=== PATIENT | male | born 1945 | race Caucasian/White ===

== ENCOUNTER 2017-12-07 07:04 | Inpatient (IN) | payer OTHER ==
--- OUTSIDE RECORDS SUMMARY | 2017-12-07 07:07 | XMS REPORT | Clinical Summary ---
:1945 Author Organization [facility] Address [address] [place] [address] Care Team Providers Name Role Phone Moy Lord DO Primary Care Provider Allergies Active Allergy Reactions Severity Noted Date Comments Penicillins 10/03/2016 Current Medications Prescription Sig. Disp. Refills Start Date End Date Status tamsulosin Take 0.4 mg by 1 09/06/2016 Active (FLOMAX) 0.4 mg mouth once capsule,extended daily. release 24hr warfarin Take 1 tablet (5 90 tablet 3 10/03/2016 Active (COUMADIN) 5 MG mg total) by tabletIndications: mouth daily. Paroxysmal atrial Take 1 tablet fibrillation, (5mg) by mouth Congestive heart daily for 30 failure, days. unspecified congestive heart failure chronicity, unspecified congestive heart failure type, Essential hypertension lisinopril-hydroch Take 1 tablet by 180 tablet 3 10/03/2016 Active lorothiazide mouth 2 (two) (PRINZIDE,ZESTORET times a day. IC) 20-12.5 mg per tabletIndications: Essential hypertension digOXIN (LANOXIN) Take 1 tablet 90 tablet 3 10/02/2017 Active 250 mcg (250 mcg total) tabletIndications: by mouth once Paroxysmal atrial daily. fibrillation, Congestive heart failure, unspecified congestive heart failure chronicity, unspecified congestive heart failure type, Essential hypertension furosemide (LASIX) Take 1 tablet 90 tablet 3 10/02/2017 Active 20 mg (20 mg total) by tabletIndications: mouth daily. Paroxysmal atrial fibrillation, Congestive heart failure, unspecified congestive heart failure chronicity, unspecified congestive heart failure type, Essential hypertension simvastatin Take 1 tablet 90 tablet 3 10/02/2017 Active (ZOCOR) 20 MG (20 mg total) by tabletIndications: mouth every Paroxysmal atrial evening. fibrillation, Congestive heart failure, unspecified congestive heart failure chronicity, unspecified congestive heart failure type, Essential hypertension sotalol (BETAPACE) Take 1 tablet 180 tablet 3 10/02/2017 Active 120 MG (120 mg total) tabletIndications: by mouth 2 (two) Paroxysmal atrial times a day. fibrillation, Congestive heart failure, unspecified congestive heart failure chronicity, unspecified congestive heart failure type, Essential hypertension digOXIN (LANOXIN) TAKE 1 TABLET BY 90 tablet 3 10/22/2017 Active 250 mcg MOUTH EVERY DAY tabletIndications: Paroxysmal atrial fibrillation, Congestive heart failure, unspecified congestive heart failure chronicity, unspecified congestive heart failure type, Essential hypertension SPIRIVA WITH INHALE CONTENTS 3 09/11/2016 Discontinued HANDIHALER 18 mcg OF 1 CAPSULE VIA 8 per inhalation HANDIHALER ONCE capsule A DAY furosemide (LASIX) Take 1 tablet 90 tablet 3 10/03/2016 Discontinued 20 mg (20 mg total) by 8 tabletIndications: mouth daily. Paroxysmal atrial fibrillation, Congestive heart failure, unspecified congestive heart failure chronicity, unspecified congestive heart failure type, Essential hypertension sotalol (BETAPACE) Take 1 tablet 180 tablet 3 10/03/2016 Discontinued 120 MG (120 mg total) 8 tabletIndications: by mouth 2 (two) Paroxysmal atrial times a day. fibrillation, Congestive heart failure, unspecified congestive heart failure chronicity, unspecified congestive heart failure type, Essential hypertension diltiazem XR Take 1 capsule 90 capsule 03 10/03/2016 (DILACOR XR) 180 (180 mg total) 8 MG 24 hr by mouth daily. capsuleIndications : Paroxysmal atrial fibrillation, Congestive heart failure, unspecified congestive heart failure chronicity, unspecified congestive heart failure type, Essential hypertension simvastatin Take 1 tablet 90 tablet 3 10/03/2016 Discontinued (ZOCOR) 20 MG (20 mg total) by 8 tabletIndications: mouth every Paroxysmal atrial evening. fibrillation, Congestive heart failure, unspecified congestive heart failure chronicity, unspecified congestive heart failure type, Essential hypertension digOXIN (LANOXIN) Take 1 tablet 90 tablet 3 10/03/2016 Discontinued 250 mcg (250 mcg total) 8 tabletIndications: by mouth once Paroxysmal atrial daily. fibrillation, Congestive heart failure, unspecified congestive heart failure chronicity, unspecified congestive heart failure type, Essential hypertension warfarin Take 1 tablet (5 200 tablet 3 12/07/2016 Discontinued (COUMADIN) 5 MG mg total) by 8 tablet mouth daily. warfarin Take one tablet 200 tablet 3 05/01/2017 Discontinued (COUMADIN) 5 MG daily or as 8 tablet directed by MD office Active Problems Problem Noted Date Hx of CABG 10/03/2016 Paroxysmal atrial fibrillation 10/03/2016 Essential hypertension 10/03/2016 Congestive heart failure 10/03/2016 PAD (peripheral artery disease) 10/03/2016 Atrial fibrillation 10/03/2016 SOB (shortness of breath) 10/03/2016 Encounters Date Type Specialty Care Team Description 12/06/2017 Telephone Cardiology Lam, Franchesc[place], Anticoagulation DRY TRANSFER MAN 11/16/2017 Orders Only Cardiology Lam, [place], Atrial fibrillation, DRY TRANSFER MAN unspecified type 11/07/2017 Telephone Cardiology Lam, [place], Anticoagulation DRY TRANSFER MAN 11/02/2017 Orders Only Cardiology Lam, [place], Atrial fibrillation, DRY TRANSFER MAN unspecified type 10/22/2017 Refill Cardiology Bogdan De Dios MD Med Refill 10/19/2017 Orders Only Cardiology Lam, [place], Atrial fibrillation, DRY TRANSFER MAN unspecified type 10/11/2017 Telephone Cardiology Lam, [place], Anticoagulation DRY TRANSFER MAN 10/05/2017 Orders Only Cardiology Lam, [place], Atrial fibrillation, DRY TRANSFER MAN unspecified type 10/02/2017 Office Visit Cardiology Bogdan De Dios MD Congestive heart failure, unspecified congestive heart failure chronicity, unspecified congestive heart failure type (Primary Dx); Paroxysmal atrial fibrillation; Essential hypertension 09/21/2017 Orders Only Cardiology Lam, [place], Atrial fibrillation, DRY TRANSFER MAN unspecified type 09/07/2017 Telephone Cardiology Lam, Franc[place], Anticoagulation DRY TRANSFER MAN 09/07/2017 Orders Only Cardiology Lam, [place], Atrial fibrillation, DRY TRANSFER MAN unspecified type 08/24/2017 Orders Only Cardiology Lam, Franc[place], Atrial fibrillation, DRY TRANSFER MAN unspecified type 08/10/2017 Orders Only Cardiology Lam, [place], Atrial fibrillation, DRY TRANSFER MAN unspecified type 08/07/2017 Telephone Cardiology Lam, Franc[place], Anticoagulation DRY TRANSFER MAN 07/09/2017 Telephone Cardiology Erin Russell MA ANTICOAGULATION 06/01/2017 Orders Only Cardiology Lam, [place], Atrial fibrillation, DRY TRANSFER MAN unspecified type (Primary Dx) 06/01/2017 Telephone Cardiology Lam, Franche[place], Anticoagulation DRY TRANSFER MAN 05/31/2017 Orders Only Cardiology Bogdan De Dios MD 05/01/2017 Orders Only Cardiology Lam, [place], DRY TRANSFER MAN 04/18/2017 Telephone Cardiology Lam, Franc[place], Anticoagulation DRY TRANSFER MAN 04/17/2017 Orders Only Cardiology Bogdan De Dios MD 03/19/2017 Telephone Cardiology Lam, Franc[place], Anticoagulation DRY TRANSFER MAN 03/16/2017 Orders Only Cardiology Bogdan De Dios MD 02/14/2017 Telephone Cardiology Lam, [place], Anticoagulation DRY TRANSFER MAN 02/13/2017 Orders Only Cardiology Bogdan De Dios MD 01/15/2017 Telephone Cardiology Lam, Franche[place], Anticoagulation DRY TRANSFER MAN 01/12/2017 Orders Only Cardiology Bogdan De Dios MD 12/07/2016 Orders Only Cardiology Lam, Franc[place], Atrial fibrillation, DRY TRANSFER MAN unspecified type (Primary Dx) 12/07/2016 Orders Only Cardiology Lam, Franchesca, DRY TRANSFER MAN 12/07/2016 Telephone Cardiology Lam, Franchesca, Anticoagulation DRY TRANSFER MAN 12/06/2016 Orders Only Cardiology Bogdan De Dios MD after 12/06/2016 Social History Tobacco Use Types Packs/Day Years Used Date Former Smoker Smokeless Tobacco: Former User Alcohol Use Drinks/Week oz/Week Comments Yes Sex Assigned at Date Recorded Not on file Last Filed Vital Signs Vital Sign Reading Time Taken Blood Pressure 167/74 10/02/2017 2:51 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 Pulse - - Temperature - - Respiratory Rate - - Oxygen Saturation - - Inhaled Oxygen Concentration - - Weight 75.1 kg (165 lb 9.6 oz) 10/02/2017 2:51 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 Height 180.3 cm (5' 11") 10/02/2017 2:51 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 Component Value Ref Range INR 2.6 (H) Comment: Reference Range 0.9-1.1 Moderate-intensity Warfarin Therapy 2.0-3.0 Higher-intensity Warfarin Therapy 3.0-4.0 Prothrombin time 26.2 (H) 9.0 - 11.5 sec Comment: For more information on this test, go to: http://education.Atmail/faq/WJN920 Specimen Performing Laboratory Blood [facility] Narrative FASTING:YES FASTING: YES ECG 12 lead (10/02/2017 2:59 PM) Component Value Ref Range Ventricular rate 56 Atrial rate 40 QRSD interval 110 QT interval 470 QTC interval 453 QRS axis 1 102 T wave axis -69 EKG impression Atrial fibrillation with slow ventricular response-Rightward axis-Marked ST abnormality, possible inferior subendocardial injury-Abnormal ECG -In automated comparison with ECG of 03-OCT-2016 10:12,-No si gnificant change was found- Specimen Performing Laboratory [facility] [address] [place] [address] after 12/06/2016 Insurance Payer Benefit Plan / Group Subscriber ID Type Phone Address [facility] [employer]NETWORK xxxxxxxxxxx HMO [phone] [facility] [address] [place] [address]
[2017-12-07 07:37] LABS: Absolute Lymphocytes (CBC) 1.6 K/uL (0.7-4.9); Absolute Monocytes 0.7 K/uL (0.1-1.3); Basophils % 0.8 % (0-1.3); Eosinophils % 12.2 % (0-4.4); Hematocrit 41.9 % (39.6-49.0); Lymphocytes % 13.2 % (15.3-44.8); MCV 86.4 fL (80-100); MPV 8.3 fL (7.6-11.3); Monocytes % 5.8 % (3.3-12.3); RBC Red Blood Cell Count 4.85 M/uL (4.33-5.43)
--- NOTE | 2017-12-07 07:39 | EKG ---
Test Date: 2017-12-07 Test Time: 07:30:13 Combine Operator: LAURA MEASUREMENT RESULTS: Intervals: Rate: 58 IA: QRSD: 106 QT: 462 QTc: 453 [place]: P: IA: QRS: 64 T: -1 INTERPRETIVE STATEMENTS: Atrial fibrillation with slow ventricular response Nonspecific ST abnormality Abnormal QRS-T angle, consider primary T wave abnormality Abnormal ECG Compared to ECG 09/24/2017 07:53:26 T-wave abnormality now present Possible ischemia no longer present ST (T wave) deviation still present Electronically Signed On 12-07-17 07:38:16 CDT by Miguel Disla
[2017-12-07 07:50] LABS: Protime INR 3.05
--- NOTE | 2017-12-07 07:59 | RAD REPORT ---
EXAM DESCRIPTION: CT - Head Brain Wo Cont - 12/07/2017 7:49 am CLINICAL HISTORY: Left arm numbness COMPARISON: June 2017 TECHNIQUE: Computed axial tomography of the head was obtained. IV contrast was not requested. All CT scans are performed using dose optimization technique as appropriate and may include automated exposure control or mA/KV adjustment according to patient size. FINDINGS: An intracranial bleed is not seen . The ventricles are normal in caliber. No extra-axial fluid collection is noted. Moderate low-density areas within periventricular, deep and subcortical white matter likely represent ischemic changes secondary to small vessel disease. Fluid within the sinuses/ mastoids is not seen. A mucus retention cyst is present the left maxillary sinus IMPRESSION: No acute intracranial abnormality is seen. If patient's symptoms persist MRI of the bra in would be recommended.
--- NOTE | 2017-12-07 08:00 | RAD REPORT ---
EXAM DESCRIPTION: [place] Single View12/07/2017 7:50 am CLINICAL HISTORY: Colon cancer COMPARISON: August 2017 FINDINGS: The lungs appear clear of acute infiltrate. The heart is mildly enlarged. Post surgical c hanges involve the chest IMPRESSION: No acute abnormalities displayed
--- NOTE | 2017-12-07 08:33 | ER ---
Nurse's Notes [facility] Name: Dequan Ramirez Age: 72 yrs Sex: Male : 1945 Arrival Date: 12/07/2017 Time: 07:06 Bed 6 Private MD: Diagnosis: Unstable angina Presentation: 12/07 07:08 Presenting complaint: Patient states: "yesterday about noon i noticed my lip went numb, tw2 it still is, then my left side of my face would heat up, now my left arm is going numb". Transition of care: patient was not received from another setting of care. Onset of symptoms was December 06, 2017. Care prior to arrival: None. 07:08 Method Of Arrival: Ambulatory tw2 07:08 Acuity: [place] 3 tw2 Triage Assessment: 07:08 General: Appears in no apparent distress. Behavior is calm, cooperative, appropriate tw2 for age. Pain: Denies pain. Neuro: Oriented to person, place, time, situation, Gait is steady, Speech is normal, Facial symmetry appears normal. Historical: - Allergies: 07:10 PENICILLINS; tw2 - Home Meds: 07:10 Coumadin 5 mg Oral tab 1 tab once daily [Active]; digoxin 250 mcg Oral tab 1 tab once tw2 daily [Active]; lisinopril 20 mg Oral tab 1 tab once daily [Active]; simvastatin 20 mg Oral tab 1 tab once daily [Active]; sotalol 80 mg Oral tab 1 tab 2 times per day [Active]; - PMHx: 07:10 Atrial Fib; Dementia; COLON CA; DVT; High Cholesterol; Hypertension; tw2 07:17 COPD; tw2 - Immunization history:: Adult Immunizations up to date. - Social history:: Smoking status: Patient/guardian denies using tobacco, the patient reports quitting approximately 8 years ago. Screenin:22 Patient has been NPO before screening. The patient is alert, able to follow commands. sv The patient does not exhibit slurred or garbled speech The patient is not exhibiting difficulty speaking. The patient does not exhibit difficulty understanding words. The patient is able to swallow own secretions with no drooling or need for suction. Patient tolerated one teaspoon of water. No drooling, immediate coughing, gurgling, or clearing of the throat was noted. The patient tolerated 90mL of water. No drooling, immediate coughing, gurgling, or clearing of the throat was noted. The patient passed the bedside swallow screening. Oral medications may be given as ordered. Contact Physician for further diet orders. Provider notified of bedside swallow screening results: Ophelia Cortez MD. 07:23 Abuse screen: Denies threats or abuse. Denies injuries from another. Nutritional sv screening: No deficits noted. Tuberculosis screening: No symptoms or risk factors identified. Fall Risk None identified. Assessment: 07:23 General: Appears in no apparent distress. uncomfortable, Behavior is calm, cooperative, jl7 appropriate for age. Pain: Denies pain. Neuro: Level of Consciousness is awake, alert, obeys commands, Oriented to person, place, time, situation, Lance Crewmember/Mlrs Sergeant are equal bilaterally Moves all extremities. Gait is steady, Speech is normal, Facial symmetry appears normal, Pupils are PERRLA, Tingling in left arm Numbness in left side of face. Cardiovascular: Denies chest pain, nausea, shortness of breath, Heart tones S1 S2 present Patient's skin is warm and dry. Respiratory: Airway is patent Respiratory effort is even, unlabored, Respiratory pattern is regular, symmetrical, Breath sounds are clear bilaterally. GI: No signs and/or symptoms were reported involving the gastrointestinal system. Patient currently denies diarrhea, nausea, vomiting. : No signs and/or symptoms were reported regarding the genitourinary system. EENT: No signs and/or symptoms were reported regarding the EENT system. Derm: Skin is pink, warm \\T\\ dry. Musculoskeletal: No signs and/or symptoms reported regarding the musculoskeletal system. 07:23 Neuro: Level of Consciousness is awake, alert, obeys commands, Oriented to person, jtb place, time, situation, Lance Crewmember/Mlrs Sergeant are equal bilaterally Moves all extremities. Gait is Speech is normal, Facial symmetry appears normal, Tingling in left hand Numbness in left jaw Reports blurred vision since yesterday Denies dizziness, headache. 08:19 Reassessment: Patient and/or family updated on plan of care and expected duration. Pain jtb level reassessed. Patient is alert, oriented x 3, equal unlabored respirations, skin warm/dry/pink. Family is at the bedside. Pt is resting in bed. 09:35 Reassessment: Patient and/or family updated on plan of care and expected duration. Pain jtb level reassessed. Patient is alert, oriented x 3, equal unlabored respirations, skin warm/dry/pink. Dr. Disla is at the bed side updating pt on plan of care. Patient denies pain at this time. 10:31 Reassessment: Pt to stress test via wheelchair. sv 10:34 Reassessment: Nurse to call back for report. sv Vital Signs: 07:08 BP 173 / 100; Pulse 78; Resp 17; Temp 98.2(TE); Pulse Ox 95% on R/A; Weight 74.39 kg tw2 (R); Height 5 ft. 11 in. (180.34 cm); Pain 0/10; 07:32 BP 186 / 83; Pulse 86; Resp 16; Pulse Ox 99% ; Pain 0/10; jl7 08:19 BP 173 / 77; Pulse 62; Resp 16; Pulse Ox 98% on R/A; Pain 0/10; jtb 09:25 BP 186 / 66; Pulse 60; Resp 18; Pulse Ox 98% on R/A; jb1 09:45 BP 165 / 81; Pulse 63; Resp 19; Pulse Ox 99% ; sv 07:08 Body Mass Index 22.87 (74.39 kg, 180.34 cm) tw2 ED Course: 07:06 Patient arrived in ED. rg4 07:08 Arm band placed on. tw2 07:09 Triage completed. tw2 07:12 Judith Davila, RN is Primary Nurse. jl7 07:20 Initial lab(s) drawn, by nm, sent to lab. Inserted saline lock: 20 gauge in right jtb wrist, using aseptic technique. Blood collected. 07:23 Patient has correct armband on for positive identification. Placed in gown. Bed in low sv position. Call light in reach. Adult w/ patient. proposal manager on. Pulse ox on. NIBP on. Door closed. Head of bed elevated. 07:27 EKG done, by bone density technician. reviewed by Ophelia Cortez MD. tc 07:33 Ophelia Cortez MD is Attending Physician. ma2 07:48 CT completed. Patient tolerated procedure well. Patient moved to CT via stretcher. sj Patient moved back from CT. 08:32 Paige Morrison MD is Hospitalizing Provider. ma2 09:54 Report given to ABELINO Rollins. 7 10:17 Primary Nurse role handed off by Judith Davila, ABELINO aj1 10:17 oZ Mackenzie, RN is Primary Nurse. [facility] 10:56 No provider procedures requiring assistance completed. Patient admitted, IV remains in sv place. intact. Administered Medications: 09:41 Drug: Aspirin Chewable Tablet 324 mg Route: PO; jl7 10:00 Follow up: Response: No adverse reaction [facility] Point of Care Testing: Blood Glucose: 07:32 Blood Glucose: 158 mg/dL; jl7 Ranges: Outcome: 08:32 Decision to Hospitalize by Provider. ma2 09:55 Attestation : I agree with everything documented by Desmond Maravilla, Student Nurse. [facility] 10:54 Admitted to [facility] via wheelchair, room 231, with chart, Other Cardiology department to take pt up to his room after the stress test is complete. Report called to Christofer ROCA 10:54 Condition: improved 10:54 Instructed on the need for admit. 10:56 Patient left the ED. Signatures: Dexter Phelan Angela, RN RN aj1 Melissa Minaya RN Zunilda Harry Tiffany, pastoral assistant EKG Ttc Kinza Leach RN ABELINO 2 Georgia Tyler rg4 Judith Davila, RN RN leo7 Ophelia Cortez MD MD ma2 Bryson, James [facility] Corrections: (The following items were deleted from the chart) 07:44 07:23 Neuro: Level of Consciousness is awake, alert, obeys commands, Oriented to jtb person, place, time, situation, Lance Crewmember/Mlrs Sergeant are equal bilaterally Moves all extremities. Gait is Speech is normal, Facial symmetry appears normal, Tingling in left hand Numbness in left jaw jtb 09:47 09:35 BP 186 / 66; Pulse 83bpm; Resp 16bpm; Pulse Ox 98% RA; Pain 0/10; jtb jtb
--- NOTE | 2017-12-07 08:33 | EDPHYS ---
Physician Documentation [facility] Name: Dequan Ramirez Age: 72 yrs Sex: Male : 1945 Arrival Date: 12/07/2017 Time: 07:06 Bed 6 Private MD: ED Physician Ophelia Cortez HPI: 12/07 08:27 This 72 yrs old Male presents to ER via Ambulatory with complaints of ma2 Numbness. 08:27 Onset: The symptoms/episode began/occurred gradually, 1 day(s) ago. Duration: This was ma2 a single incident. Associated signs and symptoms: Pertinent positives: Pertinent negatives: abdominal pain, agitation, ataxia, chest pain, confusion, diaphoresis, diarrhea, headache, nausea, palpitations, shortness of breath, vertigo, vomiting, weakness. Severity of symptoms: At their worst the symptoms were moderate. The patient has experienced a previous episode. Has left shoulder pain tingling and left neck . Historical: - Allergies: 07:10 PENICILLINS; tw2 - Home Meds: 07:10 Coumadin 5 mg Oral tab 1 tab once daily [Active]; digoxin 250 mcg Oral tab 1 tab once tw2 daily [Active]; lisinopril 20 mg Oral tab 1 tab once daily [Active]; simvastatin 20 mg Oral tab 1 tab once daily [Active]; sotalol 80 mg Oral tab 1 tab 2 times per day [Active]; - PMHx: 07:10 Atrial Fib; Dementia; COLON CA; DVT; High Cholesterol; Hypertension; tw2 07:17 COPD; tw2 - Immunization history:: Adult Immunizations up to date. - Social history:: Smoking status: Patient/guardian denies using tobacco, the patient reports quitting approximately 8 years ago. ROS: 08:27 Constitutional: Negative for fever, chills, and weight loss, Eyes: Negative for injury, ma2 pain, redness, and discharge, ENT: Negative for injury, pain, and discharge, Neck: Negative for injury, pain, and swelling, Respiratory: Negative for shortness of breath, cough, wheezing, and pleuritic chest pain, Abdomen/GI: Negative for abdominal pain, nausea, diarrhea, and constipation, Back: Negative for injury and pain, : Negative for injury, bleeding, discharge, and swelling, MS/Extremity: Negative for injury and deformity, Skin: Negative for injury, rash, and discoloration, Allergy/Immunology: Negative for hives, rash, and allergies, Endocrine: Negative for neck swelling, polydipsia, polyuria, polyphagia, and marked weight changes. 08:27 Cardiovascular: Positive for Negative for chest pain, edema, orthopnea, palpitations, paroxysmal nocturnal dyspnea, acute changes. 08:27 Neuro: Positive for numbness, left arm and face numbness x 12 hrs , Negative for altered mental status, headache, hearing loss, loss of consciousness, seizure activity, speech changes, syncope, near syncope, tingling, tinnitus, tremor, visual changes, weakness. Exam: 08:27 Constitutional: This is a well developed, well nourished patient who is awake, alert, ma2 and in no acute distress. Head/Face: Normocephalic, atraumatic. Eyes: Pupils equal round and reactive to light, extra-ocular motions intact. Lids and lashes normal. Conjunctiva and sclera are non-icteric and not injected. Cornea within normal limits. Periorbital areas with no swelling, redness, or edema. ENT: Nares patent. No nasal discharge, no septal abnormalities noted. Tympanic membranes are normal and external auditory canals are clear. Oropharynx with no redness, swelling, or masses, exudates, or evidence of obstruction, uvula midline. Mucous membranes moist. Neck: Trachea midline, no thyromegaly or masses palpated, and no cervical lymphadenopathy. Supple, full range of motion without nuchal rigidity, or vertebral point tenderness. No Meningismus. Chest/axilla: Normal chest wall appearance and motion. Nontender with no deformity. No lesions are appreciated. Cardiovascular: Regular rate and rhythm with a normal S1 and S2. No gallops, murmurs, or rubs. Normal PMI, no JVD. No pulse deficits. Respiratory: Lungs have equal breath sounds bilaterally, clear to auscultation and percussion. No rales, rhonchi or wheezes noted. No increased work of breathing, no retractions or nasal flaring. Abdomen/GI: Soft, non-tender, with normal bowel sounds. No distension or tympany. No guarding or rebound. No evidence of tenderness throughout. MS/ Extremity: Pulses equal, no cyanosis. Neurovascular intact. Full, normal range of motion. Neuro: Awake and alert, GCS 15, oriented to person, place, time, and situation. Cranial nerves II-XII grossly intact. Motor strength 5/5 in all extremities. Sensory grossly intact. Cerebellar exam normal. Normal gait. Vital Signs: 07:08 BP 173 / 100; Pulse 78; Resp 17; Temp 98.2(TE); Pulse Ox 95% on R/A; Weight 74.39 kg tw2 (R); Height 5 ft. 11 in. (180.34 cm); Pain 0/10; 07:32 BP 186 / 83; Pulse 86; Resp 16; Pulse Ox 99% ; Pain 0/10; jl7 08:19 BP 173 / 77; Pulse 62; Resp 16; Pulse Ox 98% on R/A; Pain 0/10; jtb 09:25 BP 186 / 66; Pulse 60; Resp 18; Pulse Ox 98% on R/A; jb1 09:45 BP 165 / 81; Pulse 63; Resp 19; Pulse Ox 99% ; sv 07:08 Body Mass Index 22.87 (74.39 kg, 180.34 cm) tw2 MDM: 07:34 Patient medically screened. ma2 08:27 Differential diagnosis: ACS, vs NSTMI. Data reviewed: vital signs, nurses notes, EMS ma2 record, lab test result(s), EKG. 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 garcia . Test interpretation: by ED physician or midlevel provider: ECG, plain radiologic studies. Counseling: I had a detailed discussion with the patient and/or guardian regarding: the historical points, exam findings, and any diagnostic results supporting the discharge/admit diagnosis, the presence of at least one elevated blood pressure reading (>120/80) during this emergency department visit, the need for further work-up and treatment in the hospital. Admission orders: after a detailed discussion of the patient's condition and case, the admit orders are written by me. 12/07 07:20 Order name: Basic Metabolic Panel sv 12/07 07:20 Order name: BNP sv 12/07 07:20 Order name: CBC with Diff sv 12/07 07:20 Order name: Ckmb sv 12/07 07:20 Order name: CPK sv 12/07 07:20 Order name: LFT's sv 12/07 07:20 Order name: Magnesium sv 12/07 07:20 Order name: PT-INR sv 12/07 07:20 Order name: Ptt, Activated sv 12/07 07:20 Order name: Troponin (emerg Dept Use Only) sv 12/07 07:41 Order name: CBC with Automated Diff; Complete Time: 08:15 EDMS 12/07 07:51 Order name: Protime (+INR); Complete Time: 08:15 EDMS 12/07 07:51 Order name: PTT, Activated Partial Thromb; Complete Time: 08:15 EDMS 12/07 07:53 Order name: Troponin (Emerg Dept Use Only); Complete Time: 08:15 EDMS 12/07 07:20 Order name: XRAY Chest (1 view) sv 12/07 07:20 Order name: EKG; Complete Time: 07:21 sv 12/07 07:20 Order name: Cardiac monitoring; Complete Time: 07:22 sv 12/07 07:20 Order name: EKG - Nurse/Tech; Complete Time: 07:30 sv 12/07 07:20 Order name: CT Head Brain wo Cont sv 12/07 07:59 Order name: CT; Complete Time: 08:15 EDMS 12/07 08:00 Order name: RAD; Complete Time: 08:15 EDMS 12/07 08:06 Order name: BNP B-Type Natriuretic Peptide; Complete Time: 08:15 EDMS 12/07 09:01 Order name: Basic Metabolic Panel; Complete Time: 09:37 EDMS 12/07 09:07 Order name: Liver (Hepatic) Function; Complete Time: 09:37 EDMS 12/07 09:07 Order name: Creatine Phosphokinase; Complete Time: 09:37 EDMS 12/07 09:07 Order name: Magnesium; Complete Time: 09:37 EDMS 12/07 09:10 Order name: CKMB Creatine Kinase MB; Complete Time: 09:37 EDMS 12/07 10:09 Order name: Urine Dipstick--Ancillary (enter results) bd 12/07 10:56 Order name: Urine Dipstick-Ancillary EDMS 12/07 07:20 Order name: IV Saline Lock; Complete Time: 07:30 sv 12/07 07:20 Order name: Labs collected and sent; Complete Time: 07:30 sv 12/07 07:20 Order name: O2 Per Protocol; Complete Time: 07:22 sv 12/07 07:20 Order name: O2 Sat Monitoring; Complete Time: 07:22 sv 12/07 07:22 Order name: Accucheck; Complete Time: 07:31 sv Administered Medications: 09:41 Drug: Aspirin Chewable Tablet 324 mg Route: PO; jl7 10:00 Follow up: Response: No adverse reaction jl7 Point of Care Testing: Blood Glucose: 07:32 Blood Glucose: 158 mg/dL; jl7 Ranges: Critical Glucose Levels:Adult <50 mg/dl or >400 mg/dl <40 mg/dl or >180 mg/dl Disposition: 12/07/17 08:32 Hospitalization ordered by Paige Garcia for Observation. Preliminary diagnosis is Unstable angina. - Bed requested for Telemetry/MedSurg (observation). - Status is Observation. sv - Condition is Stable. - Problem is new. - Symptoms are unchanged. UTI on Admission? No Signatures: Dispatcher [employer] EDDahlia Beltran Stephanie, RN RN Hua Ferrer PA PA [id number] Kinza Leach RN RN tw2 Judith Davila RN RN jl7 Ophelia Cortez MD MD ma2
[2017-12-07 09:07] LABS: Albumin 4.6 g/dL (3.2-5.5); Bilirubin Direct 0.4 mg/dL (0-0.2); Bilirubin Total 2.1 mg/dL (0.3-1.2); Magnesium 1.8 mg/dL (1.8-2.5); Protein, Total 7.4 g/dL (6.0-8.3)
[2017-12-07 09:10] LABS: CKMB Creatine Kinase MB 1.9 ng/ml (0.3-4.0)
[2017-12-07] MEDS ORDERED: ASPIRIN 81 MG CHEWABLE TABLET ONE (09:58)
[2017-12-07] MEDS ORDERED: REGADENOSON 0.4 MG/5 ML SYR IV ONE (10:34)
[2017-12-07 10:55] LABS: Urine Blood NEGATIVE (NEG); Urine Glucose NEGATIVE (NEG); Urine Protein NEGATIVE (NEG)
[2017-12-07] MEDS ORDERED: ACETAMINOPHEN 500 MG TAB PO PRN (11:10)
[2017-12-07] MEDS ORDERED: ONDANSETRON 4 MG (ODT) TAB PO PRN (11:10)
--- NOTE | 2017-12-07 12:04 | CON ---
Chief Complaint: Tingling in the left side of his face, numb in the thumb and first 2 fingers on his left hand. History Of Present Illness: The patient was fine until these symptoms started yesterday, it has been fairly constant, still present although mild. He has a history of coronary heart disease with a byp ass surgery, a 1 vessel bypass, left internal mammary to LAD, no vein grafts were needed, that was in the early 1999s. The most recent cardiac cath that I have available is from 2013 that showed that sandra ARAGON was widely patent and useful. There is a 70% proximal LAD lesion, still with normal flow thr ough it and no significant lesions in the right coronary or circumflex. He has been on medical thera py for some time for this. He has not been in my office since 2014. We do not have the list of his present medications. There has been no stroke, no vascular surgery other than the bypass surgery. Colin gaines quit smoking right at the time of his bypass surgery and apparently sees another director of clinical education and h as good control of blood pressure, blood sugar and lipids. Alcohol use, minimal. No illegal drugs. Physical Examination: General: He is alert, oriented, pleasant, not in distress. Neck: There is no carotid bruit. Lungs: Clear. Heart: Irregular, but no significant murmur or gallop. Diagnostic Data: The EKG shows atrial fib, heart rate is 58, there is a nonspecific T-wave abnormali ty. Otherwise, it is normal. No infarction, injury or ischemia. His EKG is similar to older EKGs, which we have on Mr. Ramirez. It was compared to an EKG from September of this year when similar finding s were noted. Since being in the hospital, a troponin is normal. He has not had chest pain or tight ness or squeezing. His INR is 3.05. His troponins are 0.04. Potassium 3.0. Normal white blood anila l count. Normal complete blood count. Impression: Mr. Ramirez is probably having nerve impingement syndrome, I would be worried about cervic al spine disease causing all of the symptoms on the left side of his face, top of his head and left a rm. Because the troponin is 0.04, I think we will do an echo and a pharmacologic stress test to make sure those are okay. If we do not find anything sitting a fit with his heart, I would recommend a n eurological workup to include cervical spine evaluations. BRISA/SKYLER Voice ID: [id number] Report ID: [id number]
[2017-12-07 12:19] VITALS: BMI 22.8
--- NOTE | 2017-12-07 12:50 | RAD REPORT ---
EXAM DESCRIPTION: NM - Rest Stress Cardiac Imaging - 12/07/2017 12:43 pm CLINICAL HISTORY: Chest pain. COMPARISON: None. TECHNIQUE: The patient was administered approximately 10mCi of Tc 99m Sestamibi prior to resting SPE CT imaging of the heart. The patient was then administered approximately 30 mCi of Tc 99m Sestamibi f ollowing exercise or pharmacologic stress. Multiplanar SPECT images were reviewed. FINDINGS: No stress induced ischemic defect is seen to suggest stress induced ischemia. Mild decreas ed radiopharmaceutical accumulation in the LV apex inferiorly noted. Left ventricular cavity appears enlarged on rest and stress. The end diastolic volume is 167 ml, the end systolic volume is 106 ml, and the ejection fraction is 3 7 %. IMPRESSION: Mild stress-induced ischemia suspected involving the left ventricular apex inferiorly.
--- NOTE | 2017-12-07 13:17 | ECHO ---
HEIGHT: 5 ft 11 in WEIGHT: 164 lb 0 oz DATE OF STUDY: 12/07/[address]: Miguel Disla MD 2-DIMENSIONAL: YES M.MODE: YES DOPPLER: YES COLOR FLOW: YES TDS: NO PORTABLE: NO DEFINITY: NO BUBBLE STUDY: NO DIAGNOSIS: POSSIBLE ANGINA CARDIAC HISTORY: CATHERIZATION: YES SURGERY: YES PROSTHETIC VALVE: NO PACEMAKER: NO MEASUREMENTS (cm) DIASTOLIC (NORMALS) SYSTOLIC (NORMALS) IVSd 1.1 (0.6-1.2) LA Diam 5.0 (1.9-4.0) LVEF 39% LVIDd 5.6 (3.5-5.7) LVIDs 4.5 (2.0-3.5) %FS 19% LVPWd 1.0 (0.6-1.2) Ao Diam 3.2 (2.0-3.7) 2 DIMENSIONAL ASSESSMENT: RIGHT ATRIUM: DILATED LEFT ATRIUM: DILATED RIGHT VENTRICLE: NORMAL LEFT VENTRICLE: NORMAL TRICUSPID VALVE: NORMAL MITRAL VALVE: NORMAL PULMONIC VALVE: NORMAL AORTIC VALVE: NORMAL PERICARDIAL EFFUSION: NONE AORTIC ROOT: NORMAL LEFT VENTRICULAR WALL MOTION: GLOBAL HYPOKINESIS. DOPPLER/COLOR FLOW: MODERATE TRICUSPID REGURGITATION. MILD MITRAL REGURGITATION. SEVERE PULMONARY HYPERTENSION. ESTIMATED RIGHT VENTRICULAR SYSTOLIC PRESSURE 75 mmHg. COMMENTS: DEPRESSED LEFT VENTRICULAR EJECTION FRACTION. DILATED LEFT AND RIGHT ATRIUM. MODERATE TRICUSPID REGURGITATION. MILD MITRAL REGURGITATION. SEVERE PULMONARY HYPERTENSION. TECHNOLOGIST: Trip ARNETT
--- NOTE | 2017-12-07 13:29 | TREADPHA ---
DX: POSSIBLE ANGINA Date of Study: 12/07/2017 Ht: 5' 11 " Wt: 164 lb 0 oz Consulting Physician: RIVERA MEDICATIONS: ASPIRIN HISTORY: 72 YEAR OLD MALE WITH COMPLAINTS OF LEFT ARM AND LEFT FACE NUMBNESS. HISTORY OF CORONARY ARTERY DISEASE, FORMER SMOKER, CORONARY ARTERY BYPASS SURGERY, HYPERTENSION AND HIGH CHOLESTEROL. PHYSICIAL EXAMINATION: RESTING B.P.: 186/88 RESTING H.R.: 62 RESTING EKG: ATRIAL FIBRILLATION. INTRA VENTRICULAR CONDUCTION DELAY. PREMATURE VENTRICULAR COMPLEXES. PROTOCOL: LEXISCAN EXERCISE TIME: 3:30 B.P. AT PEAK STRESS: 191/77 IMPRESSION: LEXISCAN INJECTED. CARDIOLITE INJECTED PER PROTOCOL. SEE NUCLEAR MEDICINE REPORT. NO CHEST PAIN. NON DIAGNOSTIC EKG WITH LEXISCAN STRESS.
--- NOTE | 2017-12-07 14:56 | P.HP ---
Certification for Inpatient Patient admitted to: Observation With expected LOS: <2 Midnights Patient will require the following post-hospital care: None Practitioner: I am a practitioner with admitting privileges, knowledge of patient current condition, hospital course, and medical plan of care. Services: Services provided to patient in accordance with Admission requirements found in Title 42 Section 412.3 of the Code of Federal Regulations Patient History Date of Service: 12/07/17 Primary Care Provider: Dr Lord Reason for admission: Chest Pain History of Present Illness: This is a 72-year-old female with significant past medical history of atrial fibrillation, COPD, CAD, Colon CA removed, dementia and DVT who presented to the ED complaining of having some left-sided chest pain. Patient stated that more than the chest pain patient was starting to have numbness and tingling on the left side that was going down to his upper extremity and on his facial area when he moved his neck. Patient stated that the chest pain was more concerning for him and thus he decided to come to the ER today to get a workup. Patient states that he has a history of CAD in the past and had a bypass done in 2007. He quit smoking right at the time of his bypass surgery, minimal alcohol and no illegal drugs. Patient denies having an any other associated symptoms and states that aside from chest pain and numbness and tingling he does not have any shortness of breath nausea vomiting or any other symptoms. Allergies Penicillins Allergy (Mild, Verified 12/07/15 20:20) Rash Home Medications: Digoxin [Lanoxin] 250 mcg PO DAILY 11/10/13 Simvastatin 20 mg PO BEDTIME 11/10/13 Sotalol HCl [Sotalol] 80 mg PO BID 11/10/13 Furosemide [Lasix*] 20 mg PO M,W,F #20 tab 12/11/15 Warfarin Sodium [Coumadin*] 5 mg PO DAILY 5 PM #30 tab 12/11/15 Tamsulosin [Flomax*] 0.4 mg PO BEDTIME 09/23/17 Lisinopril [Prinivil*] 20 mg PO DAILY #30 tab 09/24/17 - Past Medical/Surgical History Has patient received pneumonia vaccine in the past: No Diabetic: No -: HTN -: Atrial fibrillation -: DVT-lt leg -: Hyperlipidemia -: Colon tumor -: Pulmonary HTN -: dementia -: wendi -: colon ca with tumor removal -: heart bypass-2007 -: Shoulder sx -: Rt leg stent-superficial femoral artery -: shoulder sx -: cancer removal under the eye -: abscess left leg - Family History Mother -: Heart disease, Hypertension, Diabetes, Cancer Father -: Lung disease, Cancer Sister -: Heart disease, Hypertension Brother -: Heart disease, Hypertension - Social History Smoking Status: Former smoker Alcohol use: No CD- Drugs: No Caffeine use: No Place of Residence: Home Review of Systems General: As per HPI Physical Examination - Vital Signs Temperature: 98.2 F Blood Pressure: 165/81 Pulse: 63 Respirations: 19 - Physical Exam General: Alert, In no apparent distress, Oriented x3, Demented HEENT: Atraumatic, PERRLA, EOMI Neck: Supple Respiratory: Clear to auscultation bilaterally, Normal air movement Cardiovascular: Regular rate/rhythm, Normal S1 S2 Gastrointestinal: Normal bowel sounds, No tenderness Musculoskeletal: No tenderness Integumentary: No rashes Neurological: Normal speech, Normal tone, Normal affect, Abnormal sensation ( Numbness and tingling on right side UE on flexion of the neck. ) Lymphatics: No axilla or inguinal lymphadenopathy - Studies Laboratory Data (last 24 hrs) 12/07/17 07:20: PT 36.4 H, INR 3.05, APTT 44.0 H 12/07/17 07:20: WBC 11.8 H, Hgb 14.0, Hct 41.9, Plt Count 235 12/07/17 07:20: B-Natriuretic Peptide 402 H 12/07/17 07:20: Sodium 135, Potassium 3.0 L, BUN 7, Creatinine 0.89, Glucose 158 H, Magnesium 1.8, Total Bilirubin 2.1 H, AST 33, ALT 25, Alkaline Phosphatase 80 Assessment and Plan - Problems (Diagnosis) (1) NSTEMI (non-ST elevated myocardial infarction) Current Visit: Yes Status: Acute Plan: Left Sided Chest pain with Troponin of 0.04 -Cardiology consulted. -Stress test pending -Echo Pending -Started on ASA, statin, BB and JOSE M inhibitor. (2) CAD (coronary artery disease) Current Visit: Yes Status: Acute Plan: H/O of CAD with Bypass x 1 in 1999. Cardiac cath in 2013 with ARAGON widely patent and useful. 70% proximal LAD lesion, still with normal flow through it and no significant lesions in the right coronary or circumflex. -Now with Chest pain. -See # 1 Qualifiers: Coronary Disease-Associated Artery/Lesion type: [place] artery [place] vs. transplanted heart: [place] heart Associated angina: without angina Qualified Code(s): I25.10 - Atherosclerotic heart disease of [place] coronary artery without angina pectoris (3) Atrial fibrillation Current Visit: No Status: Acute Plan: Rate control and Rhythm control -On Betapace and Warfarin. -Will continue -ECHO pending. Qualifiers: (4) COPD (chronic obstructive pulmonary disease) Onset Date: 12/08/15 Current Visit: No Status: Chronic Qualifiers: COPD type: unspecified COPD Qualified Code(s): J44.9 - Chronic obstructive pulmonary disease, unspecified - Advance Directives Does patient have a Living Will: Yes Does patient have a Durable POA for Healthcare: Yes
[2017-12-07] MEDS: KCL 20 MEQ/100 mL IVPB 20 MEQ/100 ML BAG IV SCH ×2 (15:33→17:13)
[2017-12-07] MEDS ORDERED: NA CHLORIDE 0.9% 250 ML ONE (15:41)
[2017-12-07] MEDS ORDERED: WARFARIN SODIUM 5 MG TAB PO SCH (17:00)
[2017-12-07 18:13] LABS: Urine Appearance CLEAR; Urine Bilirubin NEGATIVE (NEG); Urine Blood NEGATIVE (NEG); Urine Color YELLOW; Urine Glucose NEGATIVE (NEG); Urine Microscopic Reflex NO UMIC; Urine Protein NEGATIVE (NEG); Urine Specific Gravity <=1.005 (1.005-1.030); Urine Urobilinogen 0.2 mg/dL (0.2-1.0)
[2017-12-07] MEDS: SOTALOL HCL 80 MG TAB PO SCH (20:25)
[2017-12-07] MEDS ORDERED: ATORVASTATIN 10 MG TAB PO SCH (21:00)
[2017-12-07] MEDS ORDERED: TAMSULOSIN 0.4 MG SR CAP PO SCH (21:00)
[2017-12-08 04:20] LABS: Absolute Lymphocytes (CBC) 1.5 K/uL (0.7-4.9); Absolute Monocytes 0.7 K/uL (0.1-1.3); Absolute Neutrophil 7.6 K/uL (1.8-8.0); Basophils % 0.5 % (0-1.3); Hematocrit 38.3 % (39.6-49.0); Lymphocytes % 13.2 % (15.3-44.8); MCH 30.4 pg (27.0-35.0); MCV 86.2 fL (80-100); MPV 8.2 fL (7.6-11.3); Monocytes % 6.1 % (3.3-12.3); RBC Red Blood Cell Count 4.44 M/uL (4.33-5.43)
[2017-12-08 04:39] LABS: Albumin 4.2 g/dL (3.2-5.5); Potassium 3.9 mEq/L (3.6-5.0); Protein, Total 6.5 g/dL (6.0-8.3)
[2017-12-08 04:40] LABS: Bilirubin Total 2.1 mg/dL (0.3-1.2)
[2017-12-08] MEDS ORDERED: POTASSIUM CL SA 10 MEQ TAB PO ONE (06:00)
[2017-12-08 06:13] VITALS: O2SAT 95
[2017-12-08 08:20] VITALS: TEMP 98.6
[2017-12-08] MEDS ORDERED: LISINOPRIL 20 MG TAB PO SCH (09:00)
[2017-12-08] MEDS ORDERED: DIGOXIN 0.25 MG TABLET PO SCH (09:00)
[2017-12-08] MEDS: SOTALOL HCL 80 MG TAB PO SCH (09:08)
[2017-12-08 11:40] VITALS: BP 178/81
--- NOTE | 2017-12-08 12:04 | PN ---
Mr. Ramirez seems to be doing fine. I think he probably has cervical spondylosis causing his problems. His stress test indicates he may have some ischemia. His enzymes look fine, so I think we could le t him go home and do an outpatient cardiac cath. He certainly does not seem to have unstable angina, seems to be doing quite well. I do not think this hospitalization has anything to do with instabili ty of heart or blood vessels. BRISA/SKYLER Voice ID: [id number] Report ID: [id number]
--- NOTE | 2017-12-08 14:56 | P.SSS ---
Patient History Date of Service: 12/08/17 Primary Care Provider: Dr Lord Reason for admission: Chest Pain History of Present Illness: This is a 72-year-old female with significant past medical history of atrial fibrillation, COPD, CAD, Colon CA removed, dementia and DVT who presented to the ED complaining of having some left-sided chest pain. Patient stated that more than the chest pain patient was starting to have numbness and tingling on the left side that was going down to his upper extremity and on his facial area when he moved his neck. Patient stated that the chest pain was more concerning for him and thus he decided to come to the ER today to get a workup. Patient states that he has a history of CAD in the past and had a bypass done in 2007. He quit smoking right at the time of his bypass surgery, minimal alcohol and no illegal drugs. Patient denies having an any other associated symptoms and states that aside from chest pain and numbness and tingling he does not have any shortness of breath nausea vomiting or any other symptoms. Allergies Penicillins Allergy (Mild, Verified 12/07/15 20:20) Rash Home Medications: Digoxin [Lanoxin] 250 mcg PO DAILY 11/10/13 Simvastatin 20 mg PO BEDTIME 11/10/13 Sotalol HCl [Sotalol] 80 mg PO BID 11/10/13 Furosemide [Lasix*] 20 mg PO M,W,F #20 tab 12/11/15 Warfarin Sodium [Coumadin*] 5 mg PO DAILY 5 PM #30 tab 12/11/15 Tamsulosin [Flomax*] 0.4 mg PO BEDTIME 09/23/17 Lisinopril [Prinivil*] 20 mg PO DAILY #30 tab 09/24/17 - Past Medical/Surgical History Has patient received pneumonia vaccine in the past: No Diabetic: No -: HTN -: Atrial fibrillation -: DVT-lt leg -: Hyperlipidemia -: Colon tumor -: Pulmonary HTN -: dementia -: wendi -: colon ca with tumor removal -: heart bypass-2007 -: Shoulder sx -: Rt leg stent-superficial femoral artery -: shoulder sx -: cancer removal under the eye -: abscess left leg - Family History Mother -: Heart disease, Hypertension, Diabetes, Cancer Father -: Lung disease, Cancer Sister -: Heart disease, Hypertension Brother -: Heart disease, Hypertension - Social History Smoking Status: Former smoker Alcohol use: No CD- Drugs: No Caffeine use: No Place of Residence: Home Review of Systems General: As per HPI Physical Examination - Vital Signs Temperature: 98.6 F Blood Pressure: 178/81 Pulse: 51 Respirations: 16 Pulse Ox (%): 96 - Physical Exam General: Alert, In no apparent distress, Oriented x3 HEENT: Atraumatic, PERRLA, Mucous membr. moist/pink, EOMI, Sclerae nonicteric Neck: Supple, 2+ carotid pulse no bruit, No LAD, Without JVD or thyroid abnormality Respiratory: Clear to auscultation bilaterally, Normal air movement Cardiovascular: Regular rate/rhythm, Normal S1 S2 Gastrointestinal: Normal bowel sounds, No tenderness Musculoskeletal: No tenderness Integumentary: No rashes Neurological: Normal gait, Normal speech, Normal strength at 5/5 x4 extr, Normal tone, Normal affect Lymphatics: No axilla or inguinal lymphadenopathy - Diagnosis (Problem(s)) (1) NSTEMI (non-ST elevated myocardial infarction) Status: Acute Plan: Left Sided Chest pain with Troponin of 0.04 -Cardiology consulted. -Stress test + for mild ischemia -Echo WNL -Started on ASA, statin, BB and JOSE M inhibitor. -Outpt Cardiac Cath. -DC home today (2) CAD (coronary artery disease) Status: Acute Plan: H/O of CAD with Bypass x 1 in 1999. Cardiac cath in 2013 with ARAGON widely patent and useful. 70% proximal LAD lesion, still with normal flow through it and no significant lesions in the right coronary or circumflex. -No Chest pain today. -Will be scheduled for Outpt cardiac Cath Qualifiers: Coronary Disease-Associated Artery/Lesion type: [place] artery [place] vs. transplanted heart: [place] heart Associated angina: without angina Qualified Code(s): I25.10 - Atherosclerotic heart disease of [place] coronary artery without angina pectoris (3) Atrial fibrillation Status: Acute Plan: Rate control and Rhythm control -On Betapace and Warfarin. Qualifiers: (4) COPD (chronic obstructive pulmonary disease) Onset Date: 12/08/15 Status: Chronic Qualifiers: COPD type: unspecified COPD Qualified Code(s): J44.9 - Chronic obstructive pulmonary disease, unspecified (5) Cervical spondylosis Status: Acute Qualifiers: Spinal osteoarthritis complication: with radiculopathy Qualified Code(s): M47.22 - Other spondylosis with radiculopathy, cervical region - Disposition Disposition: ROUTINE DISCHARGE Condition: GOOD Patient Discharge Instructions: Please f/u with PCP in 1 to 2 weeks post discharge. Please f/u with Dr Disla in 1 to 2 weeks post discharge. Please f/ u with Dr Vasquez in 1 to 2 weeks post discharge. New medication. None. Please continue to take all medication as prescribed. You will need to be scheduled for Cardiac Cath outpt. Diet: Regular Activity: Ad primitivo
[2017-12-10] MEDS ORDERED: FUROSEMIDE 20 MG TABLET PO SCH (09:00)
== END 2017-12-08 13:40 | disposition home or self-care (01) | DRG 282 ==
LOC: ER 07:04 → ERHOLD 08:36 → 2ND 11:03 → OBSVTOIN 15:09
PROVIDERS: ADMIT Family Medicine; ATTEND Family Medicine
DX: I21.4 Non-ST elevation (NSTEMI) myocardial infarction (principal); I48.91 Unspecified atrial fibrillation; M47.22 Other spondylosis with radiculopathy, cervical region; J44.9 Chronic obstructive pulmonary disease, unspecified; I25.10 Atherosclerotic heart disease of native coronary artery without angina pectoris; F03.90 Unspecified dementia, unspecified severity, without behavioral disturbance, psychotic disturbance, mood disturbance, and anxiety; Z85.038 Personal history of other malignant neoplasm of large intestine; Z86.718 Personal history of other venous thrombosis and embolism; Z87.891 Personal history of nicotine dependence
CPT/HCPCS: 36415; 70450; 71045; 78452; 80048; 80053; 80076; 81003; 82550; 82553; 82962; 83735; 83880; 84484; 85025; 85610; 85730; 93005; 93017; 93306; 99285; A9500; G0378; J2785

== ENCOUNTER 2018-09-04 15:54 | Inpatient (IN) | payer OTHER ==
--- OUTSIDE RECORDS SUMMARY | 2018-09-04 15:57 | XMS REPORT | Clinical Summary ---
:1945 Author Organization [facility] Address [address] [place] [address] Care Team Providers Name Role Phone Moy Lord DO Primary Care Provider Allergies Active Allergy Reactions Severity Noted Date Comments Penicillins 10/03/2016 Medications Medication Sig Dispensed Refills Start Date End Date Status tamsulosin Take 0.4 mg by 1 09/06/2016 Active (FLOMAX) 0.4 mg mouth once capsule,extended daily. release 24hr warfarin Take 1 tablet (5 90 tablet 3 10/03/2016 Active (COUMADIN) 5 MG mg total) by tabletIndications: mouth daily. Paroxysmal atrial Take 1 tablet fibrillation (5mg) by mouth (HCC), Congestive daily for 30 heart failure, days. unspecified congestive heart failure chronicity, unspecified congestive heart failure type, Essential hypertension lisinopril-hydroch Take 1 tablet by 180 tablet 3 10/03/2016 Active lorothiazide mouth 2 (two) (PRINZIDE,ZESTORET times a day. IC) 20-12.5 mg per tabletIndications: Essential hypertension digOXIN (LANOXIN) Take 1 tablet 90 tablet 3 10/02/2017 Active 250 mcg (250 mcg total) tabletIndications: by mouth once Paroxysmal atrial daily. fibrillation (HCC), Congestive heart failure, unspecified congestive heart failure chronicity, unspecified congestive heart failure type, Essential hypertension furosemide (LASIX) Take 1 tablet 90 tablet 3 10/02/2017 Active 20 mg (20 mg total) by tabletIndications: mouth daily. Paroxysmal atrial fibrillation (HCC), Congestive heart failure, unspecified congestive heart failure chronicity, unspecified congestive heart failure type, Essential hypertension digOXIN (LANOXIN) TAKE 1 TABLET BY 90 tablet 3 10/22/2017 Active 250 mcg MOUTH EVERY DAY tabletIndications: Paroxysmal atrial fibrillation (HCC), Congestive heart failure, unspecified congestive heart failure chronicity, unspecified congestive heart failure type, Essential hypertension potassium chloride Take 1 tablet 90 tablet 3 12/11/2017 Active (KLOR-CON) 10 MEQ (10 mEq total) 9 CR tablet by mouth daily. warfarin TAKE 1 TABLET BY 200 tablet 2 07/17/2018 Active (COUMADIN) 5 MG MOUTH EVERY DAY tablet OR DIRECTED BY DOCTOR OFFICE sotalol (BETAPACE) TAKE 1 TABLET BY 180 tablet 3 09/04/2018 Active 120 MG MOUTH TWICE A tabletIndications: DAY Paroxysmal atrial fibrillation (HCC), Congestive heart failure (HCC), Essential hypertension simvastatin TAKE 1 TABLET BY 90 tablet 3 09/04/2018 Active (ZOCOR) 20 MG MOUTH EVERY tabletIndications: EVENING Paroxysmal atrial fibrillation (HCC), Congestive heart failure (HCC), Essential hypertension SPIRIVA WITH INHALE CONTENTS 3 09/11/2016 Discontinued HANDIHALER 18 mcg OF 1 CAPSULE VIA 8 per inhalation HANDIHALER ONCE capsule A DAY furosemide (LASIX) Take 1 tablet 90 tablet 3 10/03/2016 Discontinued 20 mg (20 mg total) by 8 tabletIndications: mouth daily. Paroxysmal atrial fibrillation (HCC), Congestive heart failure, unspecified congestive heart failure chronicity, unspecified congestive heart failure type, Essential hypertension sotalol (BETAPACE) Take 1 tablet 180 tablet 3 10/03/2016 Discontinued 120 MG (120 mg total) 8 tabletIndications: by mouth 2 (two) Paroxysmal atrial times a day. fibrillation (HCC), Congestive heart failure, unspecified congestive heart failure chronicity, unspecified congestive heart failure type, Essential hypertension diltiazem XR Take 1 capsule 90 capsule 3 10/03/2016 (DILACOR XR) 180 (180 mg total) 8 MG 24 hr by mouth daily. capsuleIndications : Paroxysmal atrial fibrillation (HCC), Congestive heart failure, unspecified congestive heart failure chronicity, unspecified congestive heart failure type, Essential hypertension simvastatin Take 1 tablet 90 tablet 3 10/03/2016 Discontinued (ZOCOR) 20 MG (20 mg total) by 8 tabletIndications: mouth every Paroxysmal atrial evening. fibrillation (HCC), Congestive heart failure, unspecified congestive heart failure chronicity, unspecified congestive heart failure type, Essential hypertension digOXIN (LANOXIN) Take 1 tablet 90 tablet 3 10/03/2016 Discontinued 250 mcg (250 mcg total) 8 tabletIndications: by mouth once Paroxysmal atrial daily. fibrillation (HCC), Congestive heart failure, unspecified congestive heart failure chronicity, unspecified congestive heart failure type, Essential hypertension warfarin Take 1 tablet (5 200 tablet 3 12/07/2016 Discontinued (COUMADIN) 5 MG mg total) by 8 tablet mouth daily. warfarin Take one tablet 200 tablet 3 05/01/2017 Discontinued (COUMADIN) 5 MG daily or as 8 tablet directed by MD office simvastatin Take 1 tablet 90 tablet 3 10/02/2017 Discontinued (ZOCOR) 20 MG (20 mg total) by 8 tabletIndications: mouth every Paroxysmal atrial evening. fibrillation (HCC), Congestive heart failure, unspecified congestive heart failure chronicity, unspecified congestive heart failure type, Essential hypertension sotalol (BETAPACE) Take 1 tablet 180 tablet 3 10/02/2017 Discontinued 120 MG (120 mg total) 8 tabletIndications: by mouth 2 (two) Paroxysmal atrial times a day. fibrillation (HCC), Congestive heart failure, unspecified congestive heart failure chronicity, unspecified congestive heart failure type, Essential hypertension Active Problems Problem Noted Date Bilateral carotid artery disease 06/11/2018 Coronary artery disease involving [place] coronary artery of [place] heart 12/11 without angina pectoris Hx of CABG 10/03/2016 Paroxysmal atrial fibrillation 10/03/2016 Essential hypertension 10/03/2016 Congestive heart failure 10/03/2016 PAD (peripheral artery disease) 10/03/2016 Atrial fibrillation 10/03/2016 SOB (shortness of breath) 10/03/2016 Encounters Date Type Specialty Care Team Description 09/04/2018 Refill Cardiology Mega James MD Med Refill 08/30/2018 Orders Only Cardiology Franchesca Lam, Chronic atrial fibrillation [employer] (HCC) 08/23/2018 Orders Only Cardiology Franchesca Lam, Chronic atrial fibrillation [employer] (HCC) 08/16/2018 Orders Only Cardiology Franchesca Lam, Chronic atrial fibrillation [employer]ELOP[employer] (HCC) 08/09/2018 Telephone Cardiology Erin Russell MA anticoagulation 08/09/2018 Orders Only Cardiology Lam, Franchesca, Chronic atrial fibrillation [employer]ELOP[employer] (HCC) 08/02/2018 Orders Only Cardiology Lam, Franchesca, Atrial fibrillation, unspecified type (HCC); DIRECT[employer] BUSINESS [employer]ELOPMENT Chronic atrial fibrillation (HCC) 07/26/2018 Orders Only Cardiology Lam, Franchesca, Chronic atrial fibrillation DIRECT[employer]ELOP[employer] (HCC) 07/19/2018 Orders Only Cardiology Lam, Franchesca, Atrial fibrillation, unspecified type (HCC); [employer]ELOP[employer] Chronic atrial fibrillation (HCC) 07/16/2018 Refill Cardiology Mega James MD Med Refill 07/09/2018 Orders Only Cardiology Lam, Franchesca, Chronic atrial fibrillation [employer] (HCC) (Primary Dx) 07/09/2018 Telephone Cardiology Lam, Franchesca, Anticoagulation [employer] 07/05/2018 Orders Only Cardiology Lam, Franchesca, Atrial fibrillation, [employer]ELOPMENT unspecified type (HCC) 06/21/2018 Orders Only Cardiology Lam, Franchesca, Atrial fibrillation, [employer]ELOPMENT unspecified type 06/17/2018 Telephone Cardiology Marianne Tineo MA Results 06/11/2018 Office Visit Cardiology Mega James MD Coronary artery disease involving [place] coronary artery of [place] heart without angina pectoris (Primary Dx); Bilateral carotid artery disease; PAD (peripheral artery disease); Systolic congestive heart failure, unspecified congestive heart failure chronicity 06/07/2018 Telephone Cardiology Lam, Franchesca, Anticoagulation [employer]OPMENT 06/07/2018 Orders Only Cardiology Lam, Franchesca, Atrial fibrillation, DIRECT[employer]ELOPMENT unspecified type 05/24/2018 Orders Only Cardiology Lam, Franchesca, Atrial fibrillation, [employer]EL[employer]MENT unspecified type 05/10/2018 Orders Only Cardiology Lam, Franchesca, Atrial fibrillation, DIRECT[employer]ELOPMENT unspecified type 05/08/2018 Telephone Cardiology Lam, Franchesca, Anticoagulation DIRECT[employer]ELOPMENT 04/26/2018 Orders Only Cardiology Lam, Franchesca, Atrial fibrillation, DIRECT[employer]ELOPMENT unspecified type 04/24/2018 Telephone Cardiology Lam, Franchesca, Anticoagulation DIRECT[employer]ELOPMENT 04/16/2018 Telephone Cardiology Lam, Franchesca, Anticoagulation DIRECT[employer] BUSINESS [employer]ELOPMENT 04/12/2018 Orders Only Cardiology Lam, Franchesca, Atrial fibrillation, DIRECT[employer]EL[employer] unspecified type 04/08/2018 Telephone Cardiology Lam, Franchesca, Anticoagulation DIRECT[employer]ELOPMENT 03/29/2018 Orders Only Cardiology Lam, Franchesca, Atrial fibrillation, DIRECT[employer]ELOPMENT unspecified type 03/15/2018 Orders Only Cardiology Lam, Franchesca, Atrial fibrillation, [employer]EL[employer]MENT unspecified type 03/07/2018 Telephone Cardiology Lam, Franchesca, Anticoagulation [employer]MENT 03/01/2018 Orders Only Cardiology Lam, Franchesca, Atrial fibrillation, DIRECT[employer] BUSINESS DEVELOPMENT unspecified type 02/05/2018 Orders Only Cardiology Lam, Franchesca, Atrial fibrillation, DIRECT[employer]ELOPMENT unspecified type (Primary Dx) 02/05/2018 Telephone Cardiology Lam, Franchesca, Anticoagulation DIRECT[employer]ELOPMENT 01/07/2018 Telephone Cardiology Lam, Franchesca, Anticoagulation DIRECT[employer] BUSINESS DEVELOPMENT 12/11/2017 Office Visit Cardiology Mega James MD Coronary artery disease involving [place] coronary artery of [place] heart without angina pectoris (Primary Dx); Systolic congestive heart failure, unspecified congestive heart failure chronicity; Other specified transient cerebral ischemias; Hx of CABG 12/06/2017 Telephone Cardiology Lam, Franchesca, Anticoagulation [employer]MENT 11/16/2017 Orders Only Cardiology Lam, Franchesca, Atrial fibrillation, DIRECT[employer]ELOPMENT unspecified type 11/07/2017 Telephone Cardiology Lam, Franchesca, Anticoagulation DIRECT[employer]ELOPMENT 11/02/2017 Orders Only Cardiology Lam, Franchesca, Atrial fibrillation, DIRECT[employer]ELOPMENT unspecified type 10/22/2017 Refill Cardiology Mega James MD Med Refill 10/19/2017 Orders Only Cardiology Lam, Franchesca, Atrial fibrillation, [employer] unspecified type 10/11/2017 Telephone Cardiology Lam, Franchesca, Anticoagulation DIRECT[employer]MENT 10/05/2017 Orders Only Cardiology Lam, Franchesca, Atrial fibrillation, DIRECT[employer]ELOPMENT unspecified type 10/02/2017 Office Visit Cardiology Mega James MD Congestive heart failure, unspecified congestive heart failure chronicity, unspecified congestive heart failure type (Primary Dx); Paroxysmal atrial fibrillation; Essential hypertension 09/21/2017 Orders Only Cardiology Lam, Franchesca, Atrial fibrillation, [employer]OPMENT unspecified type 09/07/2017 Telephone Cardiology Lam, Franchesca, Anticoagulation [employer]MENT 09/07/2017 Orders Only Cardiology Lam, Franchesca, Atrial fibrillation, DIRECT[employer]OPMENT unspecified type after 09/03/2017 Social History Tobacco Use Types Packs/Day Years Used Date Former Smoker Smokeless Tobacco: Former User Alcohol Use Drinks/Week oz/Week Comments Yes Sex Assigned at Date Recorded Not on file Job Start Date Occupation Industry Not on file Not on file Not on file Travel History Travel Start Travel End No recent travel history available. Last Filed Vital Signs Vital Sign Reading Time Taken Blood Pressure 191/79 06/11/2018 8:20 AM CDT Pulse 57 06/11/2018 8:20 AM CDT Temperature - - Respiratory Rate - - Oxygen Saturation - - Inhaled Oxygen Concentration - - Weight 74.8 kg (165 lb) 06/11/2018 8:20 AM CDT Height 180.3 cm (5' 11") 06/11/2018 8:20 AM CDT Body Mass Index 23.01 06/11/2018 8:20 AM CDT Plan of Treatment Date Type Specialty Care Team Description 12/17/2018 Office Visit Cardiology Mega James MD [address] [address] Health Maintenance Due Date Last Done Comments COLON CANCER SCREENING 1995 SHINGRIX VACCINE (1 of 2) 1995 ZOSTER VACCINE 2005 PNEUMOCOCCAL-13 2010 INFLUENZA VACCINE 04/24/2018 PNEUMOCOCCAL POLYSACCHARIDE VACCINE AGE 65 AND OVER Completed 11/11/2013 Procedures Procedure Name Priority Date/Time Associated Diagnosis Comments PROTHROMBIN TIME Routine 08/08/2018 8:43 Chronic atrial Results for this WITH INR AM CHIEF CHEMIST fibrillation (HCC) procedure are in the results section. PROTHROMBIN TIME Routine 07/08/2018 9:00 Atrial fibrillation, Results for this WITH INR AM CDT unspecified type procedure are in (HCC) the results section. US DUPLEX ARTERIAL Routine 06/18/2018 10:17 Coronary artery Results for this LOWER EXTREMITY AM CDT disease involving procedure are in BILATERAL [place] coronary the results artery of [place] section. heart without angina pectoris Bilateral carotid artery disease PAD (peripheral artery disease) Systolic congestive heart failure, unspecified congestive heart failure chronicity US CAROTID DUPLEX Routine 06/11/2018 9:33 Coronary artery Results for this BILATERAL AM CDT disease involving procedure are in [place] coronary the results artery of [place] section. heart without angina pectoris Bilateral carotid artery disease PAD (peripheral artery disease) Systolic congestive heart failure, unspecified congestive heart failure chronicity PROTHROMBIN TIME Routine 06/06/2018 11:03 Atrial fibrillation, Results for this WITH INR AM CDT unspecified type procedure are in the results section. PROTHROMBIN TIME Routine 05/07/2018 8:57 Atrial fibrillation, Results for this WITH INR AM CDT unspecified type procedure are in the results section. PROTHROMBIN TIME Routine 04/23/2018 8:31 Atrial fibrillation, Results for this WITH INR AM CDT unspecified type procedure are in the results section. PROTHROMBIN TIME Routine 04/15/2018 11:32 Atrial fibrillation, Results for this WITH INR AM CDT unspecified type procedure are in the results section. PROTHROMBIN TIME Routine 04/05/2018 9:27 Atrial fibrillation, Results for this WITH INR AM CDT unspecified type procedure are in the results section. PROTHROMBIN TIME Routine 03/06/2018 9:17 Atrial fibrillation, Results for this WITH INR AM CDT unspecified type procedure are in the results section. PROTHROMBIN TIME Routine 02/04/2018 8:42 Atrial fibrillation, Results for this WITH INR AM CDT unspecified type procedure are in the results section. PROTHROMBIN TIME Routine 01/04/2018 12:00 Atrial fibrillation, Results for this WITH INR AM CDT unspecified type procedure are in the results section. US CAROTID DUPLEX Routine 12/20/2017 10:41 Coronary artery Results for this BILATERAL AM CDT disease involving procedure are in [place] coronary the results artery of [place] section. heart without angina pectoris Systolic congestive heart failure, unspecified congestive heart failure chronicity Other specified transient cerebral ischemias COPY RECEIVED FROM: Routine 12/20/2017 7:58 Results for this AM CDT procedure are in the results section. COPY(IES) SENT TO: Routine 12/20/2017 7:58 Results for this AM CDT procedure are in the results section. BASIC METABOLIC Routine 12/20/2017 7:58 Coronary artery Results for this PANEL AM CDT disease involving procedure are in [place] coronary the results artery of [place] section. heart without angina pectoris Systolic congestive heart failure, unspecified congestive heart failure chronicity Other specified transient cerebral ischemias PROTHROMBIN TIME Routine 12/05/2017 7:37 Atrial fibrillation, Results for this WITH INR AM CDT unspecified type procedure are in the results section. PROTHROMBIN TIME Routine 11/06/2017 9:38 Atrial fibrillation, Results for this WITH INR AM CHIEF CHEMIST unspecified type procedure are in the results section. PROTHROMBIN TIME Routine 10/05/2017 8:52 Atrial fibrillation, Results for this WITH INR AM CHIEF CHEMIST unspecified type procedure are in the results section. ECG 12-LEAD Routine 10/02/2017 2:59 Congestive heart Results for this PM CHIEF CHEMIST failure, unspecified procedure are in congestive heart the results failure chronicity, section. unspecified congestive heart failure type PROTHROMBIN TIME Routine 09/06/2017 7:25 Atrial fibrillation, Results for this WITH INR AM CHIEF CHEMIST unspecified type procedure are in the results section. after 09/03/2017 Results Prothrombin time with INR (08/08/2018 8:43 AM CHIEF CHEMIST)Only the most recent of14 resultswithin the time period is included. INR 1.8 (H) [facility] Comment: Reference Range 0.9-1.1 Moderate-intensity Warfarin Therapy 2.0-3.0 Higher-intensity Warfarin Therapy 3.0-4.0 Prothrombin time 17.7 (H) 9.0 - 11.5 sec [facility] Comment: For more information on this test, go to: http://education.[employer]/faq/BLY286 Specimen Blood Narrative Performed At FASTING:NO [facility] FASTING: NO Resulting Agency Comment Performing Organization Information: Site ID: [id number] Name: [facility] Address: [address] [place] [id number] Director: Hilaria Dunbar Performing Organization Address City/State/[place]code [place] [address] Pv duplex arterial lower extremity (06/18/2018 10:17 AM CDT) Narrative Performed At [facility] Lower Extremity Arterial Report Pat.Name:DEQUAN RAMIREZ Pat.ID:[id number] .Date: 06/18/2018 Refer.MD:MEGA JAMES MD Exam Time: 10:07:00 AM Study Type:LE Arterial Height:71inDOBAge: 1945,72Y Sex: MALESonogrphr: Candelario Louise RVT Pat. Stat.:OutpatientRoom:[facility] TapeVol: RAS, CPT - 4: 37761 Echo Event ID:[id number] Order ID:[id number] Reason for Study:Yearly followup evaluation known history of bilateral femropopliteal arterial occlusive disease with right superficial femoral artery angioplasty and stent placement.Now complains of legs "falling asleep" with ambulation.Bilateral pedal pulses are present on physical exam.History of AFIB, coronary artery disease and congestive heart failure. Procedures:Colorflow, Grayscale/2D, Pulsed wave Doppler Race: SUMMARY: DUPLEX SCAN OBSERVATIONS: Right: Spontaneous arterial perfusion throughout all the arteries with mild concentric calcification throughout the femoropopliteal arteries and concentric calcification throughout the tibioperoneal arteries with moderately elevated velocities in the proximal superficial femoral artery.Proximal thigh superficial femoral artery stent visualized with spontaneous arterial perfusion throughout its length. Left:Spontaneous arterial perfusion throughout all the arteries with mild concentric calcification throughout the femoropopliteal arteries and concentric calcification throughout the tibioperoneal arteries with moderately elevated velocities in the distal external iliac artery. DOPPLER FINDINGS: ARTERYLOCATIONRightLeft PSV (cm/sec)PSV (cm/sec) Common [id number] Visualized External Iliac [id number] [id number] Common femoral [id number] Profunda femoral [id number] Superficial femoral [id number] Stent-Proximal 95 Stent-Mid96 Stent-Kudbgy77 Superficial femoral Aqf23027 Ycolip22656 BizsvxzriZienemuo63920 Johikb3498 Posterior tibial Esnbtvbg5820 Gde4148 Fxhzkj4356 GstwkwzjGslqnyug8349 Kimxxm2806 Anterior tibial Yqlgyabp3885 Neq7817 Ttndxj6508 PRELIMINARY FINDINGS: Less than 50% stenosis in the right distal external iliac artery and 50-75% stenosis in the left distal external iliac artery. Less than 50% stenosis in the common femoral artery, bilaterally. Patent right superficial femoral artery stent with 50-75% stenosis inflow stenosis in the proximal right superficial femoral artery and less than 50% stenosis in the right distal superficial femoral artery and proximal popliteal artery. Less than 50% stenosis in the right profunda femoral artery. Less than 50% stenosis in the left proximal proximal and distal superficial femoral artery. PHYSICIAN INTERPRETATION: Bilateral lower extremity arterial Duplex exam demonstrates diffused calcification throughout the arteries of the right and left lower extremity with mild right and moderate (50%) left distal external iliac arterial occlusive disease. Widely patent right superficial femoral artery with moderate (50%) inflow stenosis in the right proximal superficial femoral artery and mild (<50%) outflow stenosis in the right distal superficial femoral and popliteal arteries. Signed 06/23/2018 10:34 AM Mega James MD Procedure Note Interface, Radiology Results In - 06/23/2018 10:34 AM CDT [facility] Lower Extremity Arterial Report Pat.Name: DEQUAN RAMIREZ Pat.ID: [id number] .Date: 06/18/2018 Refer.MD: MEGA JAMES MD Exam Time: 10:07:00 AM Study Type:LE Arterial Height: 71in Age: 12 1945,72Y Sex: MALE Sonogrphr: Candelario Louise RVT Pat. Stat.:Outpatient Room: [facility] Vol: CN, CPT - 4: 12087 Echo Event ID:[id number] Order ID: [id number] Reason for Study:Yearly followup evaluation known history of bilateral femropopliteal arterial occlusive disease with right superficial femoral artery angioplasty and stent placement. Now complains of legs "falling asleep" with ambulation. Bilateral pedal pulses are present on physical exam. History of AFIB, coronary artery disease and congestive heart failure. Procedures:Colorflow, Grayscale/2D, Pulsed wave Doppler Race: SUMMARY: DUPLEX SCAN OBSERVATIONS: Right: Spontaneous arterial perfusion throughout all the arteries with mild concentric calcification throughout the femoropopliteal arteries and concentric calcification throughout the tibioperoneal arteries with moderately elevated velocities in the proximal superficial femoral artery. Proximal thigh superficial femoral artery stent visualized with spontaneous arterial perfusion throughout its length. Left: Spontaneous arterial perfusion throughout all the arteries with mild concentric calcification throughout the femoropopliteal arteries and concentric calcification throughout the tibioperoneal arteries with moderately elevated velocities in the distal external iliac artery. DOPPLER FINDINGS: ARTERY LOCATION Right Left PSV (cm/sec) PSV (cm/sec) Common iliac Mid 77 Not Visualized External Iliac Proximal 126 174 Distal 142 208 Common femoral Mid 123 131 Profunda femoral Proximal 170 36 Superficial femoral Proximal 220 158 Stent-Proximal 95 Stent-Mid 96 Stent-Distal 99 Superficial femoral Mid 90 102 Distal 120 73 Popliteal Proximal 121 65 Distal 43 43 Posterior tibial Proximal 63 52 Mid 96 27 Distal 73 31 Peroneal Proximal 40 32 Distal 33 44 Anterior tibial Proximal 63 58 Mid 50 48 Distal 65 53 PRELIMINARY FINDINGS: Less than 50% stenosis in the right distal external iliac artery and 50-75% stenosis in the left distal external iliac artery. Less than 50% stenosis in the common femoral artery, bilaterally. Patent right superficial femoral artery stent with 50-75% stenosis inflow stenosis in the proximal right superficial femoral artery and less than 50% stenosis in the right distal superficial femoral artery and proximal popliteal artery. Less than 50% stenosis in the right profunda femoral artery. Less than 50% stenosis in the left proximal proximal and distal superficial femoral artery. PHYSICIAN INTERPRETATION: Bilateral lower extremity arterial Duplex exam demonstrates diffused calcification throughout the arteries of the right and left lower extremity with mild right and moderate (50%) left distal external iliac arterial occlusive disease. Widely patent right superficial femoral artery with moderate (50%) inflow stenosis in the right proximal superficial femoral artery and mild (<50%) outflow stenosis in the right distal superficial femoral and popliteal arteries. Signed 06/23/2018 10:34 AM Mega James MD Performing Organization Address City/State/Zipcode Phone Number [facility] [address] [place] [address] Pv carotid duplex (06/11/2018 9:33 AM CDT)Only the most recent of2 resultswithin the time period is included. Narrative [facility]formed At [facility] HOSPITAL [facility] Carotid Artery Ultrasound Report Pat.Name:DEQUAN RAMIREZ Pat.ID:[id number] .Date: 06/11/2018 Refer.MD:MEGA JAMES MD Exam Time: 10:00:00 AM Study Type:Carotid Height:71inDOBAge: 1945,72Y Sex: MALESonogrphr: Candelario Louise RVT Pat. Stat.:OutpatientRoom:[place] TapeVol: RAS, CPT - 4: 06705 Echo Event ID:[id number] Order ID:[id number] Reason for Study:Semiannual followup evaluation known history of mid right and mild to moderate left carotid arterial occlusive disease. History of AFIB, heart failure, coronary artery disease, and peripheral arterial disease. Procedures:Colorflow, Grayscale/2D, Pulsed wave Doppler Race: SUMMARY: PHYSICAL ASSESSMENT BloodPulsesCarotid Pressure Carotid TemporalBruit Right 172/60 ++0 Left 176/64 ++0 CAROTID ARTERY SCAN RIGHT:Laminating soft plaque throughout the common carotid artery. Irregular calcified plaque in the bulb, ostium of the external carotid artery and proximal internal carotid artery.Antegrade vertebral arterial flow. LEFT:Laminating soft plaque throughout the common carotid artery. Calcified on soft plaque in the distal common carotid artery extending into the bulb and ostium of the external carotid artery.Irregular calcified plaque in the proximal internal carotid artery with isolated short segment non-mobile intimal flap in the proximal internal carotid artery creating two flow channels in the proximal internal carotid artery. Antegrade vertebral arterial flow. PRELIMINARY FINDINGS Less than 50% stenosis in the right bulb, proximal internal carotid artery and ostium of the external carotid artery. Calcified, non-mobile short segment dissection creating 50-69% stenosis in the left bulb and proximal internal carotid artery. Less than 50% stenosis in the left external carotid artery. PHYSICIAN INTERPRETATION Bilateral carotid arterial Duplex exam demonstrates mild right carotid (<50%) occlusive disease and isolated short segment dissection of the left proximal internal carotid artery creating mild to moderate (50-69%) occlusive disease. Carotid Findings:RightLeft Daniel.Flw AntegradeAntegrade Subclavian TriphasicTriphasic MEASUREMENTS: DOPPLER Right CCA Dist CCA Dist PSV57.6 cm/sCCA Dist EDV9.34 cm/s Right CCA Mid CCA Mid PSV 63 cm/sCCA Mid EDV 8.56 cm/s Right CCA Prox CCA Prox PSV84.2 cm/sCCA Prox EDV10.9 cm/s Right Bulb Bulb PSV59.9 cm/sBulb EDV12.5 cm/s Right ECA ECA PSV0 cm/sECA EDV0 cm/s ICA Dist ICA Dist PSV72.8 cm/Rodrick Dist EDV18.7 cm/s Right ICA Prox ICA Prox PSV 122 cm/Rodrick Prox EDV39.4 cm/s Right Vertebral Vertebral PSV 64.4 cm/sVertebral EDV 11.2 cm/s SCA Mid SCA Mid XLP775 cm/sSCA Mid NZZ229 cm/s Right SCA Mid SCA Mid EDV0 cm/s Left CCA Dist CCA Dist PSV57.8 cm/sCCA Dist EDV15.9 cm/s Left CCA Mid CCA Mid PSV 65.3 cm/sCCA Mid EDV 13.1 cm/s Left CCA Prox CCA Prox PSV55.5 cm/sCCA Prox EDV9.57 cm/s Left Bulb Bulb PSV70 cm/sBulb EDV14.9 cm/s Left ECA Prox ECA Prox PSV 124 cm/sECA Prox EDV6.97 cm/s Left ICA Dist ICA Dist PSV83.5 cm/Rodrick Dist EDV24.8 cm/s Left ICA Mid ICA Mid PSV 85.1 cm/Rodrick Mid EDV 32.5 cm/s Left ICA Prox ICA Prox PSV 185 cm/Rodrick Prox EDV42.3 cm/s Left Vertebral Vertebral PSV 43.7 cm/sVertebral EDV 9.37 cm/s Left SCA Mid SCA Mid EDV0 cm/s Right ICA Mid ICA Mid PSV 85.7 cm/Rodrick Mid EDV 17.1 cm/s Right ECA Prox ECA Prox PSV99.4 cm/sECA Prox EDV6.98 cm/s Right ICA/CCA Ratio ICA/CCA PSV 1.94 Left ICA/CCA Ratio ICA/CCA PSV 2.83 Signed 06/13/2018 10:56 AM Mega James MD Procedure Note Interface, Radiology Results In - 06/13/2018 10:56 AM CDT [facility] Carotid Artery Ultrasound Report Pat.Name: MAYRA DEQUAN L Pat.ID: [id number] St.Date: 06/11/2018 Refer.MD: MEGA JAMES MD Exam Time: 10:00:00 AM Study Type:Carotid Height: 71in Age: 12 1945,72Y Sex: MALE Sonogrphr: Candelario Louise RVT Pat. 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 History of AFIB, heart failure, coronary artery disease, and peripheral arterial disease. Procedures:Colorflow, Grayscale/2D, Pulsed wave Doppler Race: SUMMARY: PHYSICAL ASSESSMENT Blood Pulses Carotid Pressure Carotid Temporal Bruit Right 172/60 + + 0 Left 176/64 + + 0 CAROTID ARTERY SCAN RIGHT: Laminating soft plaque throughout the common carotid artery. Irregular calcified plaque in the bulb, ostium of the external carotid artery and proximal internal carotid artery. Antegrade vertebral arterial flow. LEFT: Laminating soft plaque throughout the common carotid artery. Calcified on soft plaque in the distal common carotid artery extending into the bulb and ostium of the external carotid artery. Irregular calcified plaque in the proximal internal carotid artery with isolated short segment non-mobile intimal flap in the proximal internal carotid artery creating two flow channels in the proximal internal carotid artery. Antegrade vertebral arterial flow. PRELIMINARY FINDINGS Less than 50% stenosis in the right bulb, proximal internal carotid artery and ostium of the external carotid artery. Calcified, non-mobile short segment dissection creating 50-69% stenosis in the left bulb and proximal internal carotid artery. Less than 50% stenosis in the left external carotid artery. PHYSICIAN INTERPRETATION Bilateral carotid arterial Duplex exam demonstrates mild right carotid (<50%) occlusive disease and isolated short segment dissection of the left proximal internal carotid artery creating mild to moderate (50-69%) occlusive disease. Carotid Findings: Right Left Verteb.Flw Antegrade Antegrade Subclavian Triphasic Triphasic MEASUREMENTS: DOPPLER Right CCA Dist CCA Dist PSV 57.6 cm/s CCA Dist EDV 9.34 cm/s Right CCA Mid CCA Mid PSV 63 cm/s CCA Mid EDV 8.56 cm/s Right CCA Prox CCA Prox PSV 84.2 cm/s CCA Prox EDV 10.9 cm/s Right Bulb Bulb PSV 59.9 cm/s Bulb EDV 12.5 cm/s Right ECA ECA PSV 0 cm/s ECA EDV 0 cm/s ICA Dist ICA Dist PSV 72.8 cm/s ICA Dist EDV 18.7 cm/s Right ICA Prox ICA Prox PSV 122 cm/s ICA Prox EDV 39.4 cm/s Right Vertebral Vertebral PSV 64.4 cm/s Vertebral EDV 11.2 cm/s SCA Mid SCA Mid PSV 114 cm/s SCA Mid PSV 147 cm/s Right SCA Mid SCA Mid EDV 0 cm/s Left CCA Dist CCA Dist PSV 57.8 cm/s CCA Dist EDV 15.9 cm/s Left CCA Mid CCA Mid PSV 65.3 cm/s CCA Mid EDV 13.1 cm/s Left CCA Prox CCA Prox PSV 55.5 cm/s CCA Prox EDV 9.57 cm/s Left Bulb Bulb PSV 70 cm/s Bulb EDV 14.9 cm/s Left ECA Prox ECA Prox PSV 124 cm/s ECA Prox EDV 6.97 cm/s Left ICA Dist ICA Dist PSV 83.5 cm/s ICA Dist EDV 24.8 cm/s Left ICA Mid ICA Mid PSV 85.1 cm/s ICA Mid EDV 32.5 cm/s Left ICA Prox ICA Prox PSV 185 cm/s ICA Prox EDV 42.3 cm/s Left Vertebral Vertebral PSV 43.7 cm/s Vertebral EDV 9.37 cm/s Left SCA Mid SCA Mid EDV 0 cm/s Right ICA Mid ICA Mid PSV 85.7 cm/s ICA Mid EDV 17.1 cm/s Right ECA Prox ECA Prox PSV 99.4 cm/s ECA Prox EDV 6.98 cm/s Right ICA/CCA Ratio ICA/CCA PSV 1.94 Left ICA/CCA Ratio ICA/CCA PSV 2.83 Signed 06/13/2018 10:56 AM Mega James MD Performing Organization Address City/State/Zipcode Phone Number [facility] [address] [facility] [place] [address] COPY RECEIVED FROM: (12/20/2017 7:58 AM CDT) Copy received from: [facility] Comment: [address] [place] [address] Narrative Performed At FASTING:YES [facility] FASTING: YES Performing Organization Address City/State/[facility] Phone Number [facility] COPY(IES) SENT TO: (12/20/2017 7:58 AM CDT) Copies/mL [facility] Comment: [address] [facility] [address] [place] [address] Narrative Performed At FASTING:YES [facility] FASTING: YES Performing Organization Address City/State/[facility] Phone Number [facility] Basic metabolic panel (12/20/2017 7:58 AM CDT) Glucose 126 (H) 65 - 99 mg/dL [facility] Comment: [facility] Fasting reference interval For someone without known diabetes, a glucose value >125 mg/dL indicates that they may have diabetes and this should be confirmed with a follow-up test. BUN, whole blood 9 7 - 25 mg/dL [facility] Creatinine 0.91 0.70 - 1.18 [facility] Comment: mg/dL [facility] For patients >49 years of age, the reference limit for Creatinine is approximately 13% higher for people identified as -Eritrean. EGFR Non-Afr. Eritrean 84 > OR=60 [facility] mL/min/1.73m2 [facility] EGFR 97 > OR=60 [facility] mL/min/1.73m2 [facility] BUN/creatinine ratio NOT APPLICABLE 6 - 22 (calc) [facility] [place] Sodium 135 135 - 146 mmol/L [facility] Potassium 4.0 3.5 - 5.3 mmol/L [facility] [place] Chloride 96 (L) 98 - 110 mmol/L [facility] [place] CO2 33 (H) 20 - 31 mmol/L [facility] [place] Calcium 9.8 8.6 - 10.3 mg/dL [facility] Specimen Blood Narrative Performed At FASTING:YES [facility] FASTING: YES Resulting Agency Comment Performing Organization Information: Site ID: [id number] Name: [facility] Address: [address] [place] [address] Director: Hilaria Dunbar MD Performing Organization Address [facility] Phone Number [facility] [place] [address] [place] [address] ECG 12 lead (10/02/2017 2:59 PM CHIEF CHEMIST) Ventricular rate 56 [facility] Atrial rate 40 [facility] QRSD interval 110 [facility] QT interval 470 [facility] QTC interval 453 [facility] QRS axis 1 102 [facility] T wave axis -69 [facility] EKG impression Atrial fibrillation with slow ventricular response-Rightward axis-Marked ST abnormality, possible inferior subendocardial injury-Abnormal ECG -In automated comparison with ECG of 03-OCT-2016 10:12,-No si [facility] MUSE gnificant change was found- Performing Organization Address [facility] Phone Number [facility] [address] [place] [address] after 09/03/2017 Insurance Payer Benefit Plan / Group Subscriber ID Type Phone Address MEDICARE MEDICARE PART A AND B xxxxxxxxxx Medicare [place], [place] CIGNA CIGNA OPEN ACCESS/NETWORK xxxxxxxxxxx HMO Advance Directives Patient has advance care planning documents on file. For more information, please contact:Chaim [address] [place] [address]
[2018-09-04] MEDS ORDERED: ACETAMINOPHEN 325 MG TABLET ONE (16:33)
[2018-09-04 17:16] LABS: Absolute Lymphocytes (CBC) 0.6 K/uL (0.7-4.9); Absolute Monocytes 0.5 K/uL (0.1-1.3); Absolute Neutrophil 16.5 K/uL (1.8-8.0); Basophils % 0.4 % (0-1.3); Eosinophils % 3.2 % (0-4.4); Hematocrit 42.4 % (39.6-49.0); Lymphocytes % 3.1 % (15.3-44.8); MCH 29.4 pg (27.0-35.0); MCV 85.1 fL (80-100); MPV 8.3 fL (7.6-11.3); Monocytes % 2.7 % (3.3-12.3); RBC Red Blood Cell Count 4.98 M/uL (4.33-5.43)
[2018-09-04 17:25] LABS: Albumin 4.2 g/dL (3.4-5.0); Bilirubin Direct 0.8 mg/dL (0-0.2); Bilirubin Total 2.3 mg/dL (0.2-1.0); Potassium 3.4 mmol/L (3.5-5.1); Protein, Total 7.4 g/dL (6.4-8.2); Troponin (Emerg Dept Use Only) 0.04 ng/mL (0.0-0.045)
--- NOTE | 2018-09-04 17:29 | RAD REPORT ---
EXAM DESCRIPTION: [facility] Single View09/04/2018 4:54 pm CLINICAL HISTORY: Cough COMPARISON: November 2017 FINDINGS: Moderate predominantly interstitial lung opacities are present within the right lung. Mild interstitial lung opacities are seen within the left lung. Heart is mildly enlarged. Postsurgical changes involve the chest IMPRESSION: Bilateral pulmonary opacities right greater than left may indicate pneumonia or pulmona ry edema
[2018-09-04 17:59] LABS: Blood Morphology Comment NOT SEEN (NOT SEEN); Platelet Estimate ADEQ
[2018-09-04] MEDS ORDERED: Levofloxacin500mg IV 500 MG/100 ML BAG IV ONE (18:11)
[2018-09-04] MEDS ORDERED: LEVALBUTEROL 1.25 MG/3 ML NEB ONE (18:11)
[2018-09-04] MEDS ORDERED: IPRATROPIUM BROM 0.5MG/2.5ML ONE (18:11)
--- NOTE | 2018-09-04 18:17 | EDPHYS ---
Physician Documentation [facility] Name: Dequan Ramirez Age: 73 yrs Sex: Male : 1945 Arrival Date: 09/04/2018 Time: 15:59 Bed 17 Private MD: ED Physician Erick Montoya HPI: 09/04 17:21 This 73 yrs old Male presents to ER via Wheelchair with complaints of kb Shortness Of Breath, Fever. 17:21 The patient or guardian reports cough, that is intermittent, described as moderate, kb with no sputum, difficulty breathing, flu symptoms, low-grade fever. Onset: The symptoms/episode began/occurred today. Severity of symptoms: At their worst the symptoms were moderate, in the emergency department the symptoms are unchanged. Modifying factors: The symptoms are alleviated by nothing, the symptoms are aggravated by nothing. Associated signs and symptoms: Pertinent positives: fever, Pertinent negatives: chest pain, diarrhea, ear ache, nausea, rhinorrhea, sore throat, vomiting. The patient has not experienced similar symptoms in the past. The patient has not recently seen a physician. Historical: - Allergies: 16:16 PENICILLINS; aa5 - PMHx: 16:16 Atrial Fib; COLON CA; COPD; Dementia; DVT; High Cholesterol; Hypertension; aa5 - Immunization history:: Pneumococcal vaccine is not up to date, Flu vaccine is not up to date. - Social history:: Smoking status: Patient/guardian denies using tobacco. - Ebola Screening: : No symptoms or risks identified at this time. ROS: 17:21 ENT: Negative for injury, pain, and discharge, Neck: Negative for injury, pain, and kb swelling, Cardiovascular: Negative for chest pain, palpitations, and edema, Abdomen/GI: Negative for abdominal pain, nausea, vomiting, diarrhea, and constipation, Back: Negative for injury and pain, MS/Extremity: Negative for injury and deformity, Skin: Negative for injury, rash, and discoloration, Neuro: Negative for headache, weakness, numbness, tingling, and seizure. 17:21 Constitutional: Positive for chills, fever, Negative for body aches, fatigue, malaise, poor PO intake, weight loss. 17:21 Respiratory: Positive for cough, shortness of breath, Negative for dyspnea on exertion, hemoptysis, orthopnea, pleurisy, sputum production, wheezing. Exam: 17:22 Constitutional: This is a well developed, well nourished patient who is awake, alert, kb and in no acute distress. Head/Face: Normocephalic, atraumatic. ENT: Nares patent. No nasal discharge, no septal abnormalities noted. Tympanic membranes are normal and external auditory canals are clear. Oropharynx with no redness, swelling, or masses, exudates, or evidence of obstruction, uvula midline. Mucous membranes moist. Neck: Trachea midline, no thyromegaly or masses palpated, and no cervical lymphadenopathy. Supple, full range of motion without nuchal rigidity, or vertebral point tenderness. No Meningismus. Chest/axilla: Normal chest wall appearance and motion. Nontender with no deformity. No lesions are appreciated. Cardiovascular: Regular rate and rhythm with a normal S1 and S2. No gallops, murmurs, or rubs. Normal PMI, no JVD. No pulse deficits. Abdomen/GI: Soft, non-tender, with normal bowel sounds. No distension or tympany. No guarding or rebound. No evidence of tenderness throughout. Skin: Warm, dry with normal turgor. Normal color with no rashes, no lesions, and no evidence of cellulitis. MS/ Extremity: Pulses equal, no cyanosis. Neurovascular intact. Full, normal range of motion. Neuro: Awake and alert, GCS 15, oriented to person, place, time, and situation. Cranial nerves II-XII grossly intact. Motor strength 5/5 in all extremities. Sensory grossly intact. Cerebellar exam normal. Normal gait. 17:23 Respiratory: the patient does not display signs of respiratory distress, Respirations: kb normal, Breath sounds: decreased breath sounds, that are mild, are located in both bases. Vital Signs: 16:16 BP 140 / 68; Pulse 98; Resp 20 S; Temp 101.9(O); Pulse Ox 90% on R/A; Weight 74.84 kg aa5 (R); Height 5 ft. 9 in. (175.26 cm) (R); Pain 0/10; 17:44 BP 124 / 67; Pulse 109; Resp 20; Pulse Ox 89% on R/A; aj1 18:18 BP 131 / 62; Pulse 106; Resp 18; Temp 100.7; Pulse Ox 98% on Nebulizer Mask; aj1 19:30 BP 131 / 62; Pulse 105; Resp 25 S; Temp 100.4(O); Pulse Ox 94% on R/A; cc3 20:33 BP 130 / 64; Pulse 78; Resp 23 S; Temp 99.2(O); Pulse Ox 95% on 2 lpm NC; cc3 16:16 Body Mass Index 24.37 (74.84 kg, 175.26 cm) aa5 MDM: 16:22 Patient medically screened. kb 17:21 Data reviewed: vital signs, nurses notes. Data interpreted: Pulse oximetry: on room air kb is 90 %. Interpretation: borderline. 18:16 Counseling: I had a detailed discussion with the patient and/or guardian regarding: the kb historical points, exam findings, and any diagnostic results supporting the discharge/admit diagnosis, lab results, radiology results, the need for further work-up and treatment in the hospital. 09/04 16:27 Order name: Lactate; Complete Time: 17:42 kb 09/04 16:27 Order name: Basic Metabolic Panel; Complete Time: 17:30 kb 09/04 16:27 Order name: Blood Culture Adult (2) kb 09/04 16:27 Order name: CBC with Diff; Complete Time: 18:01 kb 09/04 16:27 Order name: LFT's; Complete Time: 17:30 kb 09/04 16:27 Order name: Lipase; Complete Time: 17:30 kb 09/04 16:27 Order name: Procalcitonin; Complete Time: 18:00 kb 09/04 16:27 Order name: Troponin (emerg Dept Use Only); Complete Time: 17:30 kb 09/04 16:27 Order name: Urine Microscopic Only kb 09/04 16:27 Order name: Flu; Complete Time: 17:35 kb 09/04 17:54 Order name: Manual Differential; Complete Time: 18:01 EDMS 09/04 19:43 Order name: ABG Arterial Blood Gas; Complete Time: 20:25 EDMS 09/04 20:20 Order name: CBC with Automated Diff EDMS 09/04 16:27 Order name: Chest Single View XRAY; Complete Time: 17:35 kb 09/04 16:27 Order name: Cardiac monitoring; Complete Time: 16:51 kb 09/04 16:27 Order name: EKG - Nurse/Tech; Complete Time: 16:51 kb 09/04 16:27 Order name: IV Saline Lock - Large Bore; Complete Time: 16:51 kb 09/04 16:27 Order name: Labs collected and sent; Complete Time: 16:51 kb 09/04 16:27 Order name: O2 Per Protocol; Complete Time: 16:51 kb 09/04 16:27 Order name: O2 Sat Monitoring; Complete Time: 16:51 kb 09/04 17:09 Order name: EKG Electrocardiogram EDMO 09/04 17:14 Order name: Recheck Vital Signs; Complete Time: 17:58 kb 09/04 20:20 Order name: CONS Physician Consult EDMO 09/04 20:20 Order name: Heart Healthy EDMO Administered Medications: 16:28 Drug: Tylenol 650 mg Route: PO; aj 18:57 Follow up: Response: No adverse reaction aj1 18:17 Drug: LevaQUIN 500 mg Volume: 100 ml; Route: IVPB; Infused Over: 60 mins; Site: left aj1 wrist; 19:15 Follow up: Response: No adverse reaction; IV Status: Completed infusion; IV Intake: cc3 100ml 18:17 Drug: Xopenex (3) 1.25 mg Route: Inhalation; aj1 19:00 Follow up: Response: No adverse reaction cc3 18:17 Drug: AtroVENT Aerosol 0.5 mg Route: Inhalation; aj1 19:00 Follow up: Response: No adverse reaction cc3 Disposition: 09/04/18 18:17 Hospitalization ordered by Dc Franklin for Inpatient Admission. Preliminary diagnosis is Pneumonia, unspecified organism. - Bed requested for Telemetry/MedSurg (Inpatient). - Status is Inpatient Admission. cc3 - Condition is Stable. - Problem is new. - Symptoms are unchanged. UTI on Admission? No Addendum: 09/10/2018 01:40 Co-signature as Attending Physician, Erick Montoya MD. r n Signatures: Dispatcher [employer] [facility] Agatha Goodman, ROSARIO ESTRADAP-CkZo Reid RN RN aj1 Astrid Vuong, RN Erick Ashby MD MD rn Calderon, Audri, RN ABELINO griffin5 Kiara Tyler, RN Sharon Ruiz cc3 Corrections: (The following items were deleted from the chart) 09/04 17:23 17:22 Constitutional: This is a well developed, well nourished patient who is awake, kb alert, and in no acute distress. Head/Face: Normocephalic, atraumatic. ENT: Nares patent. No nasal discharge, no septal abnormalities noted. Tympanic membranes are normal and external auditory canals are clear. Oropharynx with no redness, swelling, or masses, exudates, or evidence of obstruction, uvula midline. Mucous membranes moist. Neck: Trachea midline, no thyromegaly or masses palpated, and no cervical lymphadenopathy. Supple, full range of motion without nuchal rigidity, or vertebral point tenderness. No Meningismus. Chest/axilla: Normal chest wall appearance and motion. Nontender with no deformity. No lesions are appreciated. Cardiovascular: Regular rate and rhythm with a normal S1 and S2. No gallops, murmurs, or rubs. Normal PMI, no JVD. No pulse deficits. Respiratory: Lungs have equal breath sounds bilaterally, clear to auscultation and percussion. No rales, rhonchi or wheezes noted. No increased work of breathing, no retractions or nasal flaring. Abdomen/GI: Soft, non-tender, with normal bowel sounds. No distension or tympany. No guarding or rebound. No evidence of tenderness throughout. Skin: Warm, dry with normal turgor. Normal color with no rashes, no lesions, and no evidence of cellulitis. MS/ Extremity: Pulses equal, no cyanosis. Neurovascular intact. Full, normal range of motion. Neuro: Awake and alert, GCS 15, oriented to person, place, time, and situation. Cranial nerves II-XII grossly intact. Motor strength 5/5 in all extremities. Sensory grossly intact. Cerebellar exam normal. Normal gait. kb 17:54 17:18 CBC Smear Scan ordered. EDMS EDMS 20:21 18:17 Hospitalization Ordered by Dc Franklin DO for Inpatient Admission. Preliminary cg diagnosis is Pneumonia, unspecified organism. Bed requested for Telemetry/MedSurg (Inpatient). Status is Inpatient Admission. Condition is Stable. Problem is new. Symptoms are unchanged. UTI on Admission? No. kb 21:09 20:21 09/04/2018 18:17 Hospitalization Ordered by Dc Franklin DO for Inpatient cc3 Admission. Preliminary diagnosis is Pneumonia, unspecified organism. Bed requested for Telemetry/MedSurg (Inpatient). Status is Inpatient Admission. Condition is Stable. Problem is new. Symptoms are unchanged. UTI on Admission? No. cg
--- NOTE | 2018-09-04 18:17 | ER ---
Nurse's Notes [facility] Name: Dequan Ramirez Age: 73 yrs Sex: Male : 1945 Arrival Date: 09/04/2018 Time: 15:59 Bed 17 Private MD: Diagnosis: Pneumonia, unspecified organism Presentation: 09/04 16:15 Presenting complaint: Patient states: chills, cough, and SOB that began today. 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 Transition of care: patient was not received from another setting of care. Onset of symptoms was September 04, 2018. Risk Assessment: Do you want to hurt yourself or someone else? Patient reports no desire to harm self or others. Care prior to arrival: None. 16:15 Method Of Arrival: Wheelchair aa5 16:15 Acuity: [place] 2 aa5 19:15 Initial Sepsis Screen: Does the patient meet any 2 criteria? RR > 20 per min. HR > 90 cc3 bpm. Does the patient have a suspected source of infection? No. Patient's initial sepsis screen is negative. Triage Assessment: 19:15 General: Appears in no apparent distress. comfortable. Respiratory: Onset: The cc3 symptoms/episode began/occurred today, the patient has moderate shortness of breath. Respiratory: Airway is patent Respiratory effort is even, unlabored, Respiratory pattern is regular, symmetrical. Historical: - Allergies: 16:16 PENICILLINS; aa5 - PMHx: 16:16 Atrial Fib; COLON CA; COPD; Dementia; DVT; High Cholesterol; Hypertension; aa5 - Immunization history:: Pneumococcal vaccine is not up to date, Flu vaccine is not up to date. - Social history:: Smoking status: Patient/guardian denies using tobacco. - Ebola Screening: : No symptoms or risks identified at this time. Screenin:48 Abuse screen: Denies threats or abuse. Denies injuries from another. Nutritional aj screening: No deficits noted. Tuberculosis screening: No symptoms or risk factors identified. Fall Risk None identified. Assessment: 16:48 General: Appears in no apparent distress. comfortable, Behavior is calm, cooperative, aj appropriate for age. Pain: Denies pain. Neuro: Level of Consciousness is awake, alert, obeys commands, Oriented to person, place, time, situation, Appropriate for age. Cardiovascular: Capillary refill < 3 seconds in bilateral fingers Patient's skin is warm and dry. Rhythm is regular. Respiratory: Reports shortness of breath cough that is Airway is patent Respiratory effort is even, unlabored, Respiratory pattern is symmetrical, tachypnea Breath sounds are diminished bilaterally. Derm: Skin is intact, is healthy with good turgor, Skin is flushed. 17:20 General: Appears in no apparent distress. comfortable, Behavior is calm, cooperative, aj1 appropriate for age. Pain: Denies pain. Neuro: Level of Consciousness is awake, alert, obeys commands, Oriented to person, place, time, situation, Speech is normal, Facial symmetry appears normal. Cardiovascular: Denies chest pain, Heart tones S1 S2 present Patient's skin is warm and dry. Rhythm is atrial fibrillation. Respiratory: Reports shortness of breath cough that is non-productive, Airway is patent Respiratory effort is even, unlabored, Respiratory pattern is regular, symmetrical. GI: No signs and/or symptoms were reported involving the gastrointestinal system. : No signs and/or symptoms were reported regarding the genitourinary system. EENT: No signs and/or symptoms were reported regarding the EENT system. Derm: No signs and/or symptoms reported regarding the dermatologic system. Skin is pink, warm \T\ dry. normal. Musculoskeletal: No signs and/or symptoms reported regarding the musculoskeletal system. Circulation, motion, and sensation intact. 17:45 Reassessment: Patient 89% on RA. Notified Jun Goodman TRAVEL SPECIALIST. Order received to place aj1 patient on breathing treatment, if sats do not improve after breathing treatment place patient on nasal cannula. Target O2 sat 90-92%. 18:18 Reassessment: Patient appears in no apparent distress at this time. No changes from aj1 previously documented assessment. Patient and/or family updated on plan of care and expected duration. Pain level reassessed. Patient is alert, oriented x 3, equal unlabored respirations, skin warm/dry/pink. 18:50 Reassessment:. aj1 19:15 Reassessment: Patient appears in no apparent distress at this time. Patient and/or cc3 family updated on plan of care and expected duration. Pain level reassessed. Patient is alert, oriented x 3, equal unlabored respirations, skin warm/dry/pink. Received this male patient from morning shift ABELINO Pathak as a case of pneumonia for admission waiting for admission orders. With IV cannula gauge 18 at the right forearm saline locked. 19:43 Reassessment: Dr. Castaneda came and assessed the patient. cc3 20:32 Reassessment: Patient appears in no apparent distress at this time. Patient and/or cc3 family updated on plan of care and expected duration. Pain level reassessed. Patient is alert, oriented x 3, equal unlabored respirations, skin warm/dry/pink. Room available at 213, called for report but as per charge nurse Jonathan the nurse who will receive will just call me back. 20:55 Reassessment: Report handed over to ABELINO Diehl for continuity of care and cc3 management. 21:05 Reassessment: Patient appears in no apparent distress at this time. Patient and/or cc3 family updated on plan of care and expected duration. Pain level reassessed. Patient is alert, oriented x 3, equal unlabored respirations, skin warm/dry/pink. Patient left ER for admission vitally stable by wheelchair escorted by facilities operations technicianermelinda Cardoso and the patient's family. Vital Signs: 16:16 BP 140 / 68; Pulse 98; Resp 20 S; Temp 101.9(O); Pulse Ox 90% on R/A; Weight 74.84 kg aa5 (R); Height 5 ft. 9 in. (175.26 cm) (R); Pain 0/10; 17:44 BP 124 / 67; Pulse 109; Resp 20; Pulse Ox 89% on R/A; aj1 18:18 BP 131 / 62; Pulse 106; Resp 18; Temp 100.7; Pulse Ox 98% on Nebulizer Mask; aj1 19:30 BP 131 / 62; Pulse 105; Resp 25 S; Temp 100.4(O); Pulse Ox 94% on R/A; cc3 20:33 BP 130 / 64; Pulse 78; Resp 23 S; Temp 99.2(O); Pulse Ox 95% on 2 lpm NC; cc3 16:16 Body Mass Index 24.37 (74.84 kg, 175.26 cm) aa5 ED Course: 15:59 Patient arrived in ED. mr 16:15 Triage completed. aa5 16:15 Arm band placed on. aa5 16:22 [facility]-C [facility]. kb 16:22 Erick Montoya MD is Attending Physician. kb 16:27 Astrid Vuong, RN is Primary Nurse. aj 16:34 EKG done, by brewing technician. reviewed by Agatha PONCE. 3 16:48 Patient has correct armband on for positive identification. Pulse ox on. NIBP on. aj 16:48 Inserted saline lock: 18 gauge in right forearm, using aseptic technique. Blood aj collected. 16:54 Chest Single View XRAY In Process Unspecified. EDMS 17:20 No provider procedures requiring assistance completed. aj1 18:16 Dc Franklin DO is Hospitalizing Provider. kb 20:55 Patient admitted, IV remains in place. cc3 Administered Medications: 16:28 Drug: Tylenol 650 mg Route: PO; aj 18:57 Follow up: Response: No adverse reaction aj1 18:17 Drug: LevaQUIN 500 mg Volume: 100 ml; Route: IVPB; Infused Over: 60 mins; Site: left aj1 wrist; 19:15 Follow up: Response: No adverse reaction; IV Status: Completed infusion; IV Intake: cc3 100ml 18:17 Drug: Xopenex (3) 1.25 mg Route: Inhalation; aj1 19:00 Follow up: Response: No adverse reaction cc3 18:17 Drug: AtroVENT Aerosol 0.5 mg Route: Inhalation; aj1 19:00 Follow up: Response: No adverse reaction cc3 Intake: 19:15 IV: 100ml; Total: 100ml. cc3 Outcome: 18:17 Decision to Hospitalize by Provider. kb 20:55 Admitted to Med/surg accompanied by tech, family with patient, via wheelchair, room cc3 213, with chart, Report called to ABELINO Diehl 20:55 Condition: stable 20:55 Instructed on the need for admit, Demonstrated understanding of instructions. 21:09 Patient left the ED. cc3 Signatures: Dispatcher [employer] EDMS Agatha Goodman FNP-C FNP-Ckb Zo Mackenzie RN RN aj1 Myers, Amanda, RN Bonnie Grider CelestinCynthia hodges RN RN aa5 Nilam Taveras 3 Sharon Fernández cc3 Corrections: (The following items were deleted from the chart) 16:17 16:15 Acuity: [place] 3 aa5 aa5 20:35 20:33 BP 130 / 64; Pulse 78bpm; Resp 23bpm; Spontaneous; Pulse Ox 95% 2 lpm Nasal cc3 Cannula; cc3
--- NOTE | 2018-09-04 19:57 | P.HP ---
Certification for Inpatient Patient admitted to: Inpatient With expected LOS: >2 Midnights Practitioner: I am a practitioner with admitting privileges, knowledge of patient current condition, hospital course, and medical plan of care. Services: Services provided to patient in accordance with Admission requirements found in Title 42 Section 412.3 of the Code of Federal Regulations Patient History Date of Service: 09/04/18 Reason for admission: COPD exacerbation History of Present Illness: Mr Ramirez is a 73 yeas old male withi history of CAD S/P CABG, chronic systolic CHF, last echo done in 12/09 showing EF 39% with severe pulmonary HTN, PVD S/P lower extremity stenting, who was doing well until this morning, when he start with SOB, wet cough and chills. He does not spit his secretions, unknown phlegms color. At arrival the patient was febrile 101.9 F, tachycardic, BP 140/ 68 O2 sat 90% on RA. Lab work remarkable for leukocytosis 18.2K, bands 20%. Lactate and procalcitonin normal. CXR shows bilateral opacities consistent with pneumonia. At my encounter the patient already is feeling better, after been treated in ER. Allergies Penicillins Allergy (Mild, Verified 12/07/15 20:20) Rash Home medications list reviewed: Yes Home Medications: Digoxin [Lanoxin] 250 mcg PO DAILY 11/10/13 Simvastatin 20 mg PO BEDTIME 11/10/13 Sotalol HCl [Sotalol] 80 mg PO BID 11/10/13 Furosemide [Lasix*] 20 mg PO M,W,F #20 tab 12/11/15 Warfarin Sodium [Coumadin*] 5 mg PO DAILY 5 PM #30 tab 12/11/15 Tamsulosin [Flomax*] 0.4 mg PO BEDTIME 09/23/17 Lisinopril [Prinivil*] 20 mg PO DAILY #30 tab 09/24/17 - Past Medical/Surgical History Diabetic: No -: HTN -: Atrial fibrillation -: DVT-lt leg -: Hyperlipidemia -: Colon tumor -: Pulmonary HTN -: dementia -: wendi -: colon ca with tumor removal -: heart bypass-2007 -: Shoulder sx -: Rt leg stent-superficial femoral artery -: shoulder sx -: cancer removal under the eye -: abscess left leg - Family History Mother -: Heart disease, Hypertension, Diabetes, Cancer Father -: Lung disease, Cancer Sister -: Heart disease, Hypertension Brother -: Heart disease, Hypertension - Social History Smoking Status: Former smoker Alcohol use: No CD- Drugs: No Caffeine use: No Place of Residence: Home Review of Systems 10-point ROS is otherwise unremarkable Physical Examination - Physical Exam General: Alert, In no apparent distress HEENT: Atraumatic, PERRLA, Mucous membr. moist/pink, EOMI, Sclerae nonicteric Neck: Supple, 2+ carotid pulse no bruit, No LAD, Without JVD or thyroid abnormality Respiratory: Diminished, Crackles/rales (bibasilar crackles) Cardiovascular: Normal S1 S2, No gallops Gastrointestinal: Normal bowel sounds, No tenderness Musculoskeletal: No tenderness Integumentary: No rashes Neurological: Normal speech, Normal strength at 5/5 x4 extr, Normal tone, Normal affect Lymphatics: No axilla or inguinal lymphadenopathy - Studies Laboratory Data (last 24 hrs) 09/04/18 16:40: WBC 18.2 H, Hgb 14.6, Hct 42.4, Plt Count 210 09/04/18 16:40: Sodium 135 L, Potassium 3.4 L, BUN 11, Creatinine 1.20, Glucose 114 H, Total Bilirubin 2.3 H, AST 24, ALT 27, Alkaline Phosphatase 120 H, Lipase 68 L Microbiology Data (last 24 hrs): 09/04/18 16:40 Nasopharnyx Influenza Type A Antigen Screen - Final 09/04/18 16:40 Nasopharnyx Influenza Type B Antigen Screen - Final Assessment and Plan - Problems (Diagnosis) (1) Acute respiratory failure Current Visit: Yes Status: Acute Qualifiers: Respiratory failure complication: hypoxia Qualified Code(s): J96.01 - Acute respiratory failure with hypoxia (2) CAD (coronary artery disease) Current Visit: No Status: Acute Qualifiers: Coronary Disease-Associated Artery/Lesion type: [place] artery [place] vs. transplanted heart: [place] heart Associated angina: without angina Qualified Code(s): I25.10 - Atherosclerotic heart disease of [place] coronary artery without angina pectoris (3) COPD exacerbation Current Visit: No Status: Acute (4) Pneumonia Onset Date: 12/08/15 Current Visit: No Status: Acute Qualifiers: Pneumonia type: due to unspecified organism Laterality: right Lung location: lower lobe of lung Qualified Code(s): J18.1 - Lobar pneumonia, unspecified organism - Plan The patient will be admitted to the hospital due to acute respiratory failure with hypoxia, COPD exacerbation due to pneumonia. He has leukocytosis with bandemia, febrile, so far hemodynamically stable. Will order empiric treatment with IV Levaquin, IV steroids and breathint treatments. Consult Dr Price. - Advance Directives Does patient have a Living Will: Yes Does patient have a Durable POA for Healthcare: Yes - Code Status/Comfort Care Code Status Assessed: Yes Code Status: Full Code
[2018-09-04] MEDS ORDERED: ALBUTEROL 2.5 MG/3 ML NEB SOL NEB PRN (20:18)
[2018-09-04] MEDS ORDERED: ONDANSETRON 4 MG/2 ML VIAL IV PRN (20:18)
[2018-09-04] MEDS ORDERED: ACETAMINOPHEN 500 MG TAB PO PRN (20:18)
[2018-09-04] MEDS ORDERED: IPRATROPIUM BROM 0.5MG/2.5ML NEB PRN (20:18)
[2018-09-04 20:23] LABS: Arterial Blood Carboxyhemoglob 1.5 % (0-1.5); Blood Gas Oxyhemoglobin 87.6 % (94-97); Blood O2 Saturation 89.7 % (92-98.5)
[2018-09-04 21:53] VITALS: BMI 22.6
[2018-09-04] MEDS: NA CHLORIDE 0.9% 1,000 ML IV SCH (22:04)
[2018-09-04] MEDS ORDERED: POTASSIUM 25 MEQ EFFERV TAB PO ONE (23:07)
[2018-09-05] MEDS: METHYLPREDNISOLONE 40 MG INJ IV SCH ×2 (00:04→09:45)
[2018-09-05 00:30] LABS: Urine Appearance CLEAR; Urine Bilirubin NEGATIVE (NEG); Urine Blood NEGATIVE (NEG); Urine Color DK YELLOW; Urine Glucose NEGATIVE (NEG); Urine Protein NEGATIVE (NEG); Urine Specific Gravity 1.015 (1.005-1.030); Urine pH 6.5 (5.0-7.0)
[2018-09-05 00:34] LABS: Urine Microscopic Reflex NO UMIC
[2018-09-05 00:46] LABS: Urine Bacteria <20 /HPF (NONE SEEN); Urine Culture Reflex Order NOT NEEDED; Urine Mucus SLIGHT /HPF (NONE SEEN); Urine RBC <5 /HPF (NONE SEEN)
--- NOTE | 2018-09-05 05:14 | EKG ---
Test Date: 2018-09-04 Test Time: 16:29:08 Tool Polishing Machine Operator: FELIPE MEASUREMENT RESULTS: Intervals: Rate: 107 [place]: QRSD: 100 QT: 340 QTc: 453 [place]: P: WI: QRS: 74 T: 258 INTERPRETIVE STATEMENTS: Atrial fibrillation with rapid ventricular response with premature ventricular or aberrantly conducted complexes ST abnormality, non specific Abnormal ECG Compared to ECG 12/07/2017 07:30:13 Ventricular premature complex(es) now present Electronically Signed On 09-05-18 05:14:10 INDUSTRIAL COMMERCIAL GROUNDSKEEPER by Miguel Disla
[2018-09-05 06:00] LABS: Absolute Lymphocytes (CBC) 0.5 K/uL (0.7-4.9); Absolute Monocytes 0.4 K/uL (0.1-1.3); Absolute Neutrophil 22.5 K/uL (1.8-8.0); Hematocrit 39.1 % (39.6-49.0); Lymphocytes % 2.1 % (15.3-44.8); MCH 29.8 pg (27.0-35.0); MCV 84.5 fL (80-100); MPV 8.6 fL (7.6-11.3); Monocytes % 1.7 % (3.3-12.3); RBC Red Blood Cell Count 4.63 M/uL (4.33-5.43)
[2018-09-05 06:02] LABS: Potassium 3.6 mmol/L (3.5-5.1)
[2018-09-05] MEDS ORDERED: POTASSIUM CL SA 10 MEQ TAB PO ONE (06:06)
[2018-09-05 07:17] LABS: Blood Morphology Comment NOT SEEN (NOT SEEN); Platelet Estimate ADEQ
[2018-09-05 07:30] LABS: Protime INR 3.22
[2018-09-05] MEDS ORDERED: ARFORMOTEROL TARTRATE 15 MCG/2 ML VIAL.NEB NEB SCH (08:00)
[2018-09-05 08:42] VITALS: O2SAT 92
[2018-09-05] MEDS ORDERED: FUROSEMIDE 20 MG TABLET PO SCH (09:00)
[2018-09-05] MEDS ORDERED: INFLUENZA VACCINE (for 3y+) 0.5 ML DOSE IMVAC ONE (09:00)
[2018-09-05] MEDS ORDERED: LISINOPRIL 20 MG TAB PO SCH (09:00)
[2018-09-05] MEDS ORDERED: ENOXAPARIN 40 MG/0.4 ML SQ SCH (09:00)
[2018-09-05] MEDS ORDERED: DIGOXIN 0.25 MG TABLET PO SCH (09:00)
[2018-09-05] MEDS ORDERED: hydroCHLOROthiazide 12.5 MG CAP PO SCH (09:00)
[2018-09-05] MEDS ORDERED: SOTALOL HCL 80 MG TAB PO SCH (09:00)
[2018-09-05] MEDS ORDERED: HOME MED 1 EA UNK (Lisinopril/Hydrochlorothiazide [Lisinopril-Hctz 20-12.5 Mg Tab] 1 TAB) PO SCH (09:00)
[2018-09-05] MEDS ORDERED: TAMSULOSIN 0.4 MG SR CAP PO SCH (09:00)
--- NOTE | 2018-09-05 09:09 | RAD REPORT ---
EXAM DESCRIPTION: RAD - Chest Pa And Lat (2 Views) - 09/05/2018 7:43 am CLINICAL HISTORY: follow up pneumonia, COPD Chest pain. COMPARISON: Chest Single View dated 09/04/2018; Chest Single View dated 12/07/2017; Chest Single View dated 09/22/2017; Chest Pa And Lat (2 Views) dated 12/24/2015 FINDINGS: Bibasilar lung opacities are present extending posteriorly, greater on the left, compatibl e with pneumonia and appearing mildly improved since the comparative chest radiograph. The heart is n ormal in size. No displaced fractures. Sternotomy wires present. IMPRESSION: Mild improvement in basilar pneumonia pattern since preceding day's chest radiograph.
[2018-09-05] MEDS: NA CHLORIDE 0.9% 1,000 ML IV SCH (09:38)
--- NOTE | 2018-09-05 11:58 | P.CNS ---
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 Allergies Penicillins Allergy (Mild, Verified 09/04/18 21:40) Rash Home Medications: Digoxin [Lanoxin*] 0.25 mg PO DAILY 09/04/18 Furosemide [Lasix*] 1 tab PO SEECOM 09/04/18 Lisinopril/Hydrochlorothiazide [Lisinopril-Hctz 20-12.5 mg Tab] 1 tab PO DAILY 09/04/18 Potassium Chloride 1 tab PO NOON 09/04/18 Simvastatin 1 tab PO BEDTIME 09/04/18 Sotalol HCl [Sotalol] 80 mg PO BID 09/04/18 Tamsulosin [Flomax*] 1 cap PO DAILY 09/04/18 Warfarin Sodium [Coumadin*] 1 tab PO BEDTIME 09/04/18 - Past Medical/Surgical History Diabetic: No -: HTN -: Atrial fibrillation -: DVT-lt leg -: Hyperlipidemia -: Colon tumor -: Pulmonary HTN -: dementia -: wendi -: colon ca with tumor removal -: heart bypass-2007 -: Shoulder sx -: Rt leg stent-superficial femoral artery -: shoulder sx -: cancer removal under the eye -: abscess left leg - Family History Mother Medical History: Heart disease, Hypertension, Diabetes, Cancer Father Medical History: Lung disease, Cancer Sister Medical History: Heart disease, Hypertension Brother Medical History: Heart disease, Hypertension - Social History Smoking Status: Former smoker Alcohol use: Yes CD- Drugs: No Caffeine use: No Place of Residence: Home Review of Systems 10-point ROS is otherwise unremarkable Physical Examination Temp Pulse Resp BP Pulse Ox 97.9 F 63 16 144/64 H 93 09/05/18 08:00 09/05/18 09:43 09/05/18 08:00 09/05/18 09:43 09/05/18 08:00 General: Alert, Oriented x3 HEENT: Atraumatic Neck: Supple Respiratory: Crackles/rales (Crackles at the right base) Cardiovascular: No edema, Normal pulses Gastrointestinal: Normal bowel sounds, Soft and benign Musculoskeletal: No clubbing, No swelling Laboratory Data (last 24 hrs) 09/04/18 16:40: WBC 18.2 H, Hgb 14.6, Hct 42.4, Plt Count 210 09/04/18 16:40: Sodium 135 L, Potassium 3.4 L, BUN 11, Creatinine 1.20, Glucose 114 H, Total Bilirubin 2.3 H, AST 24, ALT 27, Alkaline Phosphatase 120 H, Lipase 68 L - Problems (1) Pneumonia Onset Date: 12/08/15 Current Visit: No Status: Acute Plan: Patient is 73 years of age admitted with sudden onset of chills and shaking most likely right lower lobe pneumonia is white count is also elevated anticoagulation is therapeutic chest x-ray reviewed final signs are stable room- air sats a satisfactory As a potential for interaction of Levaquin with the warfarin currently he is allergic to penicillins reduce to low-dose Levaquin to find her mg daily Dc prednisone possible discharge tomorrow follow with me in 2 weeks with another chest x-ray Qualifiers: Pneumonia type: due to unspecified organism Laterality: right Lung location: lower lobe of lung Qualified Code(s): J18.1 - Lobar pneumonia, unspecified organism
[2018-09-05] MEDS ORDERED: POTASSIUM CL SA 10 MEQ TAB PO SCH (12:00)
[2018-09-05] MEDS ORDERED: BENZONATATE 100 MG CAP PO PRN (12:44)
--- NOTE | 2018-09-05 12:47 | P.PN ---
Subjective Date of Service: 09/05/18 Primary Care Provider: Dr. Lord; Cardiology-Dr. Disla; Pulmonary-Dr. Price Chief Complaint: Possible pneumonia Subjective: Improving Physical Examination - Vital Signs Temperature: 98.4 F Blood Pressure: 133/60 Pulse: 65 Respirations: 16 Pulse Ox (%): 93 - Physical Exam General: Alert, In no apparent distress, Oriented x3, Cooperative HEENT: Atraumatic Neck: Supple Respiratory: Crackles/rales (To the bases but significantly improved.) Cardiovascular: Irregular heart rate/rhythm (Atrial fibrillation, rate controlled) Gastrointestinal: Normal bowel sounds, Soft and benign, Non-distended, No tenderness, No masses, No rebound, No guarding Musculoskeletal: No erythema, No tenderness, No warmth Integumentary: No tenderness/swelling, No erythema, No warmth, No cyanosis Neurological: Normal speech, Normal strength at 5/5 x4 extr, Normal tone, Normal affect - Studies Laboratory Data (last 24 hrs) 09/04/18 16:40: WBC 18.2 H, Hgb 14.6, Hct 42.4, Plt Count 210 09/04/18 16:40: Sodium 135 L, Potassium 3.4 L, BUN 11, Creatinine 1.20, Glucose 114 H, Total Bilirubin 2.3 H, AST 24, ALT 27, Alkaline Phosphatase 120 H, Lipase 68 L Microbiology Data (last 24 hrs): 09/04/18 16:40 Nasopharnyx Influenza Type A Antigen Screen - Final 09/04/18 16:40 Nasopharnyx Influenza Type B Antigen Screen - Final Medications List Reviewed: Yes Assessment & Plan Discharge Plan: Home Plan to discharge in: 24 Hours Physician Review Additional Text: Impression: Acute on chronic respiratory failure with hypoxia secondary to COPD exacerbation and bilateral pneumonia Atrial fibrillation on chronic anti coagulation therapy Chronic systolic congestive heart failure Hypertension BPH GERD Plan: Acute on chronic respiratory failure with hypoxia secondary to COPD exacerbation and bilateral pneumonia: Case reviewed with pulmonology. Will continue with treatment for pneumonia. Will decrease Levaquin since the patient is on atrial fibrillation medication. Pulmonology recommends to discontinue steroid. Will continue with COPD treatment. Will maintain sats above 90%. Will wean off oxygen. Will recheck chest x-ray tomorrow. Anticipate discharge in the next 24-48 hr. Patient much improved. Will provide medication for cough and congestion. Will reassess tomorrow. Atrial fibrillation on chronic anti coagulation therapy: Restart home medication including sotalol, digoxin and Coumadin. Will monitor closely. Chronic systolic congestive heart failure: Will continue with his Lasix regimen. Hypertension: Continue with his home medication. Will maintain blood pressure control. BPH: Continue with medication. GERD: Will provide PPI. Time Spent Managing Pts Care (In Minutes): 55
[2018-09-05] MEDS ORDERED: CEFUROXIME 250 MG TAB PO SCH (16:07)
--- NOTE | 2018-09-05 16:25 | P.DS ---
Admission Date: 09/04/18 Discharge Date: 09/05/18 Primary Care Provider: Dr. Lord; Cardiology-Dr. Disla; Pulmonary-Dr. Price Disposition: ROUTINE DISCHARGE Discharge Condition: GOOD Reason for Admission: Possible pneumonia Consultations: Pulmonary-Dr. Price Procedures: CXR: Bibasilar pneumonia noted Follow up CXR: Improvement in bibasilar pneumonia. Medical problem list : Acute on chronic respiratory failure with hypoxia secondary to bilateral pneumonia Atrial fibrillation on chronic anti coagulation therapy Chronic systolic congestive heart failure Hypertension BPH GERD Brief History of Present Illness: 73-year-old male presented emergency room with increasing shortness of breath and fatigue. Patient found to have bilateral pneumonia. Patient with underlying COPD. Patient was admitted for further treatment. Hospital Course: Patient presented with shortness of breath and cough. Patient found to have acute on chronic respiratory failure with hypoxia secondary to bilateral pneumonia. COPD suspected. Pulmonology felt the patient had pneumonia only. Patient improved quickly during the hospitalization. Patient received IV antibiotic therapy and breathing treatments. His was transitioned to oral medication. Patient was given a trial of Ceftin. Patient tolerated the medication well. Levaquin was discontinued as the patient is on Coumadin. At discharge oxygen saturations within normal range. He is without any significant shortness of breath. At discharge he will continue with Ceftin 500 mg 1 pill twice daily for 7 days. Tessalon Perles 100 mg 1 pill 3 times a day as needed for cough will also be provided. Recommendation is for the patient follow up with pulmonology in 1-2 weeks to follow up this hospitalization. Recommendation to recheck chest x-ray in 2-4 weeks to monitor resolution. Patient has atrial fibrillation and takes Coumadin. This remained stable during his stay. At discharge patient will continue with sotalol 80 mg 1 pill twice daily, digoxin 0.25 mg 1 pill daily and Coumadin 5 mg daily. It is recommended that the patient have his INR recheck tomorrow and again on Sunday since the patient will be on antibiotic therapy. He will need to get in contact with the [facility] to address his recent hospitalization and antibiotics. Recommendation is to maintain Coumadin between 2 and 3. Further adjustment can be done at the [facility]. Patient has chronic systolic congestive heart failure. Patient will continue with his Lasix regimen. Patient will continue with a 1500 cc per day fluid restriction and low-salt diet. Patient with hypertension. This remained stable. At discharge he will continue with lisinopril/hydrochlorothiazide 20/12.5 mg daily. Patient will also continue with potassium supplementation daily. Recommendation is to maintain blood pressures less 150/80. Further adjustment can be done by his PCP or cardiology. Patient has BPH. Patient will continue with Flomax 0.4 mg daily. Vital Signs/Physical Exam: Temp Pulse Resp BP Pulse Ox 98.4 F 65 16 133/60 93 09/05/18 12:47 09/05/18 12:47 09/05/18 12:47 09/05/18 12:47 09/05/18 12:47 General: Alert, In no apparent distress, Oriented x3, Cooperative HEENT: Atraumatic Neck: Supple Respiratory: Clear to auscultation bilaterally, Crackles/rales (Minimal crackles to the bases) Cardiovascular: Irregular heart rate/rhythm (Atrial fib rate controlled) Gastrointestinal: Normal bowel sounds, Soft and benign, Non-distended, No tenderness, No masses, No rebound, No guarding Musculoskeletal: No erythema, No tenderness, No warmth Integumentary: No tenderness/swelling, No erythema, No warmth, No cyanosis Neurological: Normal speech, Normal strength at 5/5 x4 extr, Normal tone, Normal affect Laboratory Data at Discharge: WBC 23.5 K/uL (4.3-10.9) H* D 09/05/18 05:18 Hgb 13.8 g/dL (13.6-17.9) 09/05/18 05:18 Hct 39.1 % (39.6-49.0) L 09/05/18 05:18 Plt Count 170 K/uL (152-406) 09/05/18 05:18 PT 38.4 SECONDS (9.5-12.5) H 09/05/18 07:12 INR 3.22 09/05/18 07:12 Sodium 135 mmol/L (136-145) L 09/05/18 05:18 Potassium 3.6 mmol/L (3.5-5.1) 09/05/18 05:18 BUN 12 mg/dL (7-18) 09/05/18 05:18 Creatinine 1.10 mg/dL (0.55-1.3) 09/05/18 05:18 Glucose 161 mg/dL (74-106) H 09/05/18 05:18 Total Bilirubin 2.3 mg/dL (0.2-1.0) H 09/04/18 16:40 AST 24 U/L (15-37) 09/04/18 16:40 ALT 27 U/L (12-78) 09/04/18 16:40 Alkaline Phosphatase 120 U/L (45-117) H 09/04/18 16:40 Lipase 68 U/L (73-393) L 09/04/18 16:40 Home Medications: Digoxin [Lanoxin*] 0.25 mg PO DAILY 09/04/18 Furosemide [Lasix*] 1 tab PO SEECOM 09/04/18 Lisinopril/Hydrochlorothiazide [Lisinopril-Hctz 20-12.5 mg Tab] 1 tab PO DAILY 09/04/18 Potassium Chloride 1 tab PO NOON 09/04/18 Simvastatin 1 tab PO BEDTIME 09/04/18 Sotalol HCl [Sotalol] 80 mg PO BID 09/04/18 Tamsulosin [Flomax*] 1 cap PO DAILY 09/04/18 Warfarin Sodium [Coumadin*] 1 tab PO BEDTIME 09/04/18 Benzonatate [Tessalon Perle*] 100 mg PO TID PRN #30 cap 09/05/18 Cefuroxime [Ceftin*] 500 mg PO BID #28 tab 09/05/18 New Medications: Benzonatate [Tessalon Perle*] 100 mg PO TID PRN #30 cap PRN Reason: Cough Cefuroxime [Ceftin*] 500 mg PO BID #28 tab Patient Discharge Instructions: 1. Patient will need to follow up with his PCP in 1 week to follow up this hospitalization. 2. Patient presented with shortness of breath and cough. Patient found to have acute on chronic respiratory failure with hypoxia secondary to bilateral pneumonia. COPD suspected. Pulmonology felt the patient had pneumonia only. Patient improved quickly during the hospitalization. Patient was given a trial of Ceftin. Patient tolerated the medication well. At discharge oxygen saturations within normal range. He is without any significant shortness of breath. At discharge he will continue with Ceftin 500 mg 1 pill twice daily for 7 days. Tessalon Perles 100 mg 1 pill 3 times a day as needed for cough will also be provided. Recommendation is for the patient follow up with pulmonology in 1-2 weeks to follow up this hospitalization. Recommendation to recheck chest x-ray in 2-4 weeks to monitor resolution. 3. Patient has atrial fibrillation and takes Coumadin. This remained stable during his stay. At discharge patient will continue with sotalol 80 mg 1 pill twice daily, digoxin 0.25 mg 1 pill daily and Coumadin 5 mg daily. It is recommended that the patient have his INR recheck tomorrow and again on Sunday since the patient will be on antibiotic therapy. He will need to get in contact with the [facility] to address his recent hospitalization and antibiotics. Recommendation is to maintain Coumadin between 2 and 3. Further adjustment can be done at the [facility]. 4. Patient has chronic systolic congestive heart failure. Patient will continue with his Lasix regimen. Patient will continue with a 1500 cc per day fluid restriction and low-salt diet. 5. Patient with hypertension. This remained stable. At discharge he will continue with lisinopril/ hydrochlorothiazide 20/12.5 mg daily. Patient will also continue with potassium supplementation daily. Recommendation is to maintain blood pressures less 150/80. Further adjustment can be done by his PCP or cardiology. 6. Patient has BPH. Patient will continue with Flomax 0.4 mg daily. Diet: AHA Activity: Fall precautions Time spent managing pt's care (in minutes): 55
[2018-09-05 17:23] VITALS: BP 179/76; TEMP 98.1
[2018-09-05] MEDS ORDERED: Levofloxacin 750mg IV 750 MG/150 ML BAG IV SCH (18:00)
[2018-09-05] MEDS ORDERED: ATORVASTATIN 10 MG TAB PO SCH (21:00)
[2018-09-05] MEDS ORDERED: WARFARIN SODIUM 5 MG TAB PO SCH (21:00)
[2018-09-05] MEDS ORDERED: GUAIFENESIN 600 MG SA TAB PO SCH (21:00)
[2018-09-06] MEDS ORDERED: levoFLOXacin 250 MG TAB PO SCH (09:00)
== END 2018-09-05 20:00 | disposition home or self-care (01) | DRG 193 ==
LOC: ER 15:54 → ERHOLD 20:18 → 2ND 20:58
PROVIDERS: ADMIT Internal Medicine; ATTEND Family Medicine
DX: J18.1 Lobar pneumonia, unspecified organism (principal); J96.21 Acute and chronic respiratory failure with hypoxia; I50.22 Chronic systolic (congestive) heart failure; J44.0 Chronic obstructive pulmonary disease with (acute) lower respiratory infection; J44.1 Chronic obstructive pulmonary disease with (acute) exacerbation; I48.91 Unspecified atrial fibrillation; Z79.01 Long term (current) use of anticoagulants; I11.0 Hypertensive heart disease with heart failure; N40.0 Benign prostatic hyperplasia without lower urinary tract symptoms; K21.9 Gastro-esophageal reflux disease without esophagitis; Z88.0 Allergy status to penicillin; I25.10 Atherosclerotic heart disease of native coronary artery without angina pectoris; Z95.1 Presence of aortocoronary bypass graft; E78.5 Hyperlipidemia, unspecified; Z86.718 Personal history of other venous thrombosis and embolism; Z85.038 Personal history of other malignant neoplasm of large intestine
CPT/HCPCS: 36415; 71045; 71046; 80048; 80076; 81003; 81015; 82805; 83605; 83690; 84145; 84484; 85025; 85610; 87040; 87804; 93005; 94640; 94760; 96365; 97162; 99285; J2920; J7030; J7605

== ENCOUNTER 2018-09-09 09:53 | Emergency (ER) | payer OTHER ==
--- OUTSIDE RECORDS SUMMARY | 2018-09-09 09:57 | XMS REPORT | Clinical Summary ---
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 angina pectoris Hx of CABG 10/03/2016 Paroxysmal atrial fibrillation 10/03/2016 Essential hypertension 10/03/2016 Congestive heart failure 10/03/2016 PAD (peripheral artery disease) 10/03/2016 Atrial fibrillation 10/03/2016 SOB (shortness of breath) 10/03/2016 Encounters Date Type Specialty Care Team Description 09/06/2018 Orders Only Cardiology Franchesca Lam, Chronic atrial fibrillation STAFF RN (HCC) 09/04/2018 Refill Cardiology Mega James MD Med Refill 08/30/2018 Orders Only Cardiology Franchesca Lam, Chronic atrial fibrillation STAFF RN (HCC) 08/23/2018 Orders Only Cardiology Franchesca Lam, Chronic atrial fibrillation STAFF RN (HCC) 08/16/2018 Orders Only Cardiology Lam, Franchesca, Chronic atrial fibrillation STAFF RN (HCC) 08/09/2018 Telephone Cardiology Erin Russell MA anticoagulation 08/09/2018 Orders Only Cardiology Lam, Franchseca, Chronic atrial fibrillation STAFF RN (HCC) 08/02/2018 Orders Only Cardiology Lam, Franchesca, Atrial fibrillation, unspecified type (HCC); STAFF RN Chronic atrial fibrillation (HCC) 07/26/2018 Orders Only Cardiology Lam, Franchesca, Chronic atrial fibrillation STAFF RN (HCC) 07/19/2018 Orders Only Cardiology Lam, Franchesca, Atrial fibrillation, unspecified type (HCC); STAFF RN Chronic atrial fibrillation (HCC) 07/16/2018 Refill Cardiology Mega James MD Med Refill 07/09/2018 Orders Only Cardiology Lam, Franchesca, Chronic atrial fibrillation STAFF RN (HCC) (Primary Dx) 07/09/2018 Telephone Cardiology Lam, Franchesca, Anticoagulation STAFF RN 07/05/2018 Orders Only Cardiology Lam, Franchesca, Atrial fibrillation, STAFF RN unspecified type (HCC) 06/21/2018 Orders Only Cardiology Lam, Franchesca, Atrial fibrillation, STAFF RN unspecified type 06/17/2018 Telephone Cardiology Marianne Tineo MA Results 06/11/2018 Office Visit Cardiology Mega James MD 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 of skagway heart without angina pectoris (Primary Dx); Bilateral carotid artery disease; PAD (peripheral artery disease); Systolic congestive heart failure, unspecified congestive heart failure chronicity 06/07/2018 Telephone Cardiology Lam, Franchesca, Anticoagulation STAFF RN 06/07/2018 Orders Only Cardiology Lam, Franchesca, Atrial fibrillation, STAFF RN unspecified type 05/24/2018 Orders Only Cardiology Lam, Franchesca, Atrial fibrillation, STAFF RN unspecified type 05/10/2018 Orders Only Cardiology Lam, Franchesca, Atrial fibrillation, STAFF RN unspecified type 05/08/2018 Telephone Cardiology Lam, Franchesca, Anticoagulation STAFF RN 04/26/2018 Orders Only Cardiology Lam, Franchesca, Atrial fibrillation, STAFF RN unspecified type 04/24/2018 Telephone Cardiology Lam, Franchesca, Anticoagulation STAFF RN 04/16/2018 Telephone Cardiology Lam, Franchesca, Anticoagulation STAFF RN 04/12/2018 Orders Only Cardiology Lam, Franchesca, Atrial fibrillation, STAFF RN unspecified type 04/08/2018 Telephone Cardiology Lam, Franchesca, Anticoagulation STAFF RN 03/29/2018 Orders Only Cardiology Lam, Franchesca, Atrial fibrillation, STAFF RN unspecified type 03/15/2018 Orders Only Cardiology Lam, Franchesca, Atrial fibrillation, STAFF RN unspecified type 03/07/2018 Telephone Cardiology Lam, Franchesca, Anticoagulation STAFF RN 03/01/2018 Orders Only Cardiology Lam, Franchesca, Atrial fibrillation, STAFF RN unspecified type 02/05/2018 Orders Only Cardiology Lam, Franchesca, Atrial fibrillation, STAFF RN unspecified type (Primary Dx) 02/05/2018 Telephone Cardiology Lam, Franchesca, Anticoagulation STAFF RN 01/07/2018 Telephone Cardiology Lam, Franchesca, Anticoagulation STAFF RN 12/11/2017 Office Visit Cardiology Mega James MD 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 of skagway heart without angina pectoris (Primary Dx); Systolic congestive heart failure, unspecified congestive heart failure chronicity; Other specified transient cerebral ischemias; Hx of CABG 12/06/2017 Telephone Cardiology Lam, Franchesca, Anticoagulation STAFF RN 11/16/2017 Orders Only Cardiology Lam, Franchesca, Atrial fibrillation, STAFF RN unspecified type 11/07/2017 Telephone Cardiology Lam, Franchesca, Anticoagulation STAFF RN 11/02/2017 Orders Only Cardiology Lam, Franchesca, Atrial fibrillation, STAFF RN unspecified type 10/22/2017 Refill Cardiology Mega James MD Med Refill 10/19/2017 Orders Only Cardiology Lam, Franchesca, Atrial fibrillation, STAFF RN unspecified type 10/11/2017 Telephone Cardiology Lam, Franchesca, Anticoagulation STAFF RN 10/05/2017 Orders Only Cardiology Lam, Franchesca, Atrial fibrillation, STAFF RN unspecified type 10/02/2017 Office Visit Cardiology Mega James MD Congestive heart failure, unspecified congestive heart failure chronicity, unspecified congestive heart failure type (Primary Dx); Paroxysmal atrial fibrillation; Essential hypertension 09/21/2017 Orders Only Cardiology Lam, Franchesca, Atrial fibrillation, STAFF RN unspecified type after 09/08/2017 Social History Tobacco Use Types Packs/Day Years [...] 12/17/2018 Office Visit Cardiology Mega James MD [address] [address] Health Maintenance Due Date Last Done Comments COLON CANCER SCREENING 1995 SHINGLES VACCINES (1 of 2) 1995 PNEUMOCOCCAL-13 2010 INFLUENZA VACCINE 04/24/2018 PNEUMOCOCCAL POLYSACCHARIDE VACCINE AGE 65 AND OVER Completed 11/11/2013 Procedures Procedure Name Priority Date/Time Associated Diagnosis Comments PROTHROMBIN TIME Routine 09/06/2018 7:47 Chronic atrial Results for this WITH INR AM BUSINESS CONTINUITY SPECIALIST fibrillation (HCC) procedure are in the results section. PROTHROMBIN TIME Routine 08/08/2018 8:43 Chronic atrial Results for this WITH INR AM BUSINESS CONTINUITY SPECIALIST fibrillation (HCC) procedure are in the results section. PROTHROMBIN TIME Routine 07/08/2018 9:00 Atrial fibrillation, Results for this WITH INR AM CDT unspecified type procedure are in (HCC) the results section. US DUPLEX ARTERIAL Routine 06/18/2018 10:17 Coronary artery Results for this LOWER EXTREMITY AM CDT disease involving procedure are in BILATERAL skagway coronary the results artery of skagway section. heart without angina pectoris Bilateral carotid artery disease PAD (peripheral artery disease) Systolic congestive heart failure, unspecified congestive heart failure chronicity US CAROTID DUPLEX Routine 06/11/2018 9:33 Coronary artery Results for this BILATERAL AM CDT disease involving procedure are in skagway coronary the results artery of skagway section. heart without angina pectoris Bilateral carotid [...] AM CDT disease involving procedure are in skagway coronary the results artery of skagway section. heart without angina pectoris Systolic congestive [...] AM CDT disease involving procedure are in skag[place] coronary the results artery of skagway section. heart without angina pectoris Systolic congestive heart failure, unspecified congestive heart failure chronicity Other specified transient cerebral ischemias PROTHROMBIN TIME Routine 12/05/2017 7:37 Atrial fibrillation, Results for this WITH INR AM CDT unspecified type procedure are in the results section. PROTHROMBIN TIME Routine 11/06/2017 9:38 Atrial fibrillation, Results for this WITH INR AM BUSINESS CONTINUITY SPECIALIST unspecified type procedure are in the results section. PROTHROMBIN TIME Routine 10/05/2017 8:52 Atrial fibrillation, Results for this WITH INR AM BUSINESS CONTINUITY SPECIALIST unspecified type procedure are in the results section. ECG 12-LEAD Routine 10/02/2017 2:59 Congestive heart Results for this PM BUSINESS CONTINUITY SPECIALIST failure, unspecified procedure are in congestive heart the results failure chronicity, section. unspecified congestive heart failure type after 09/08/2017 Results Prothrombin time with INR (09/06/2018 7:47 AM BUSINESS CONTINUITY SPECIALIST)Only the most recent of14 resultswithin the time period is included. INR 1.9 (H) [facility] Comment: Reference Range 0.9-1.1 Moderate-intensity Warfarin Therapy 2.0-3.0 Higher-intensity Warfarin Therapy 3.0-4.0 Prothrombin time 19.1 (H) 9.0 - 11.5 sec [facility] Comment: For more information on this test, go to: http://education.Qriket/faq/ESW405 Specimen Blood Narrative Performed At FASTING:YES [facility] FASTING: YES Resulting Agency Comment Performing Organization Information: Site ID: [id number] Name: [facility] Address: [address] [place] [id number] Director: Hilaria Dunbar Performing Organization Address City/State/[place] [address] Pv duplex arterial lower extremity (06/18/2018 10:17 AM CDT) Narrative Performed At [facility] Lower Extremity Arterial Report Pat.Name:DEQUAN RAMIREZ Martha Pat.ID:[id number] .Date: 06/18/2018 Refer.MD:MEGA JAMES MD Exam Time: 10:07:00 AM Study Type:LE Arterial Height:71inDOBAge: 1945,72Y Sex: MALESonogrphr: Candelario Louise RVT Pat. Stat.:OutpatientRoom:Plains TapeVol: RAS, CPT - 4: 60911 Echo Event ID:[id number] Order ID:[id number] Reason for Study:Yearly followup evaluation known history [...] DOPPLER FINDINGS: ARTERYLOCATIONRightLeft PSV (cm/sec)PSV (cm/sec) Common otkzzVxt73Ftl Visualized External Iliac Gtjslwdi549919 [id number] Common femoral Lgo911135 Profunda femoral Zvjdhwlx12878 Superficial femoral Gpufgusx388754 Stent-Proximal 95 Stent-Mid96 Stent-Thbqfu01 Superficial femoral Yic12729 Usuukt41146 VrfhrmebkNmwdcmch52913 Stvcgp9316 Posterior tibial Zoskpjyk9386 Kgc6728 Tskrvu7468 UexljbqvIrfzpuxa8371 Wbfziq7582 Anterior tibial Fyjytbhj0522 Zgm7611 Jgvruw7334 PRELIMINARY FINDINGS: Less than 50% stenosis in [...] Results In - 06/23/2018 10:34 AM CDT [facility] Lower Extremity Arterial Report Pat.Name: DEQUAN RAMIREZ Pat.ID: [id number] St.Date: 06/18/2018 Refer.MD: MEGA JAMES MD Exam Time: 10:07:00 AM Study Type:LE Arterial Height: 71in Age: 12 1945,72Y Sex: MALE Sonogrphr: Candelario Louise RVT Pat. Stat.:Outpatient Room: [facility] Vol: CN, CPT - 4: 33585 Echo Event ID:[id number] Order ID: [id number] Reason for Study:Yearly followup evaluation known history [...] MD Performing Organization Address City/State/Zipcode Phone Number [facility] [address] [place] [address] carotid duplex (06/11/2018 9:33 AM CDT)Only the most recent of2 resultswithin the time period is included. Narrative Performed At [facility] Carotid Artery Ultrasound Report Pat.Name:DEQUAN RAMIREZ Pat.ID:[id number] .Date: 06/11/2018 Refer.MD:MEGA JAMES MD Exam Time: 10:00:00 AM Study Type:Carotid Height:71inDOBAge: 1945,72Y Sex: MALESonogrphr: Candelario Louise RVT Pat. Stat.:OutpatientRoom:Plains TapeVol: RAS, CPT - 4: 39708 Echo Event ID:[id number] Order ID:[id number] Reason for Study:Semiannual followup evaluation known history [...] to moderate (50-69%) occlusive disease. Carotid Findings:RightLeft Flw AntegradeAntegrade Subclavian TriphasicTriphasic MEASUREMENTS: DOPPLER Right CCA [...] EDV 11.2 cm/s SCA Mid SCA Mid APE899 cm/sSCA Mid OEG510 cm/s Right SCA Mid SCA Mid EDV0 [...] Results In - 06/13/2018 10:56 AM CDT [facility] Carotid Artery Ultrasound Report Pat.Name: DEQUAN RAMIREZ Pat.ID: [id number] .Date: 06/11/2018 Refer.MD: MEGA JAMES MD Exam Time: 10:00:00 AM Study Type:Carotid Height: 71in Age: 12 1945,72Y Sex: MALE Sonogrphr: Candelario Louise RVT Pat. Stat.:Outpatient Room: [facility] Vol: CN, CPT - 4: 57871 Echo Event ID:[id number] Order ID: [id number] Reason for Study:Semiannual followup evaluation known history [...] Organization Address City/State/Zipcode Phone Number [facility] [address] [facility] [place] [address] COPY RECEIVED FROM: (12/20/2017 7:58 AM CDT) Copy received from: [facility] Comment: [facility] [address] [place] [address] Narrative Performed At FASTING:YES [facility] FASTING: YES Performing Organization Address City/State/Zipcode Phone Number [facility] COPY(IES) SENT TO: (12/20/2017 7:58 AM CDT) Copies/mL [facility] Comment: [facility] [address] [place] [address] Narrative Performed At FASTING:YES [facility] FASTING: YES Performing Organization Address City/State/[facility] Phone Number [facility] Basic metabolic panel (12/20/2017 7:58 AM CDT) Glucose 126 (H) 65 - 99 mg/dL [facility] Comment: [facility] Fasting reference interval For someone without known diabetes, a glucose value >125 mg/dL indicates that they may have diabetes and this should be confirmed with a follow-up test. BUN, whole blood 9 7 - 25 mg/dL [facility] Creatinine 0.91 0.70 - 1.18 [facility] Comment: mg/dL [facility] For patients >49 years of age, the reference limit for Creatinine is approximately 13% higher for people identified as -Belarusian. EGFR Non-Afr. Bel[place]ian 84 > OR=60 [facility] mL/min/1.73m2 [facility] EGFR 97 > OR=60 [facility] mL/min/1.73m2 [facility] BUN/creatinine ratio NOT APPLICABLE 6 - 22 (calc) [facility] Sodium 135 135 - 146 mmol/L [facility] Potassium 4.0 3.5 - 5.3 mmol/L [facility] Chloride 96 (L) 98 - 110 mmol/L [facility] CO2 33 (H) 20 - 31 mmol/L [facility] Calcium 9.8 8.6 - 10.3 mg/dL [facility] Specimen Blood Narrative Performed At FASTING:YES [facility] FASTING: YES Resulting Agency Comment Performing Organization Information: Site ID: [id number] Name: [facility] Address: [address] [place] [address] Director: Hilaria Dunbar MD Performing Organization Address City/State/[facility] Cent[facility]ode Phone Number [facility] [address] [place] [address] ECG 12 lead (10/02/2017 2:59 PM BUSINESS CONTINUITY SPECIALIST) Ventricular rate 56 [facility] Atrial rate 40 [facility] QRSD interval 110 [facility] QT interval 470 [facility] QTC interval 453 [facility] QRS axis 1 102 [facility] T wave axis -69 [facility] EKG impression Atrial fibrillation with slow ventricular response-Rightward axis-Marked ST abnormality, possible inferior subendocardial injury-Abnormal ECG -In automated comparison with ECG of 03-OCT-2016 10:12,-No si [facility] gnificant change was found- Performing Organization Address City/[facility] Cent[facility]ode Phone Number [facility] [place] [address] [place] [address] after 09/08/2017 Insurance Payer Benefit Plan / Group Subscriber ID Type Phone Address MEDICARE MEDICARE PART A AND B xxxxxxxxxx Medicare [place], [place] [employer] OPEN ACCESS/NETWORK xxxxxxxxxxx HMO Advance Directives Patient has advance care planning documents on file. For more information, please contact:[facility] [id number] [place] [address]
[2018-09-09] MEDS ORDERED: AZITHROMYCIN 500 MG/250 ML BAG ONE (11:00)
[2018-09-09] MEDS ORDERED: FAMOTIDINE 20 MG/2 ML VIAL IV ONE (11:00)
[2018-09-09] MEDS ORDERED: CEFTRIAXONE/SWI 1gm 1 GM/10 ML SYR ONE (11:00)
--- NOTE | 2018-09-09 11:50 | RAD REPORT ---
EXAM DESCRIPTION: RAD - Chest Single View - 09/09/2018 11:08 am CLINICAL HISTORY: Cough, shortness of breath, recent pneumonia diagnosis COMPARISON: September 05, September 04, August 2017 TECHNIQUE: AP portable chest image was obtained 1058 hours . FINDINGS: Patient has prominent interstitial markings that are believed to be back to baseline for t he patient. The pneumonia findings seen on the recent imaging have cleared. No pulmonary edema, failu re or volume overload findings. Heart size is stable. Pulmonary vasculature within normal limits. Jarrod rnotomy wires are in place. Trachea is midline. No measurable pleural effusion and no pneumothorax. N o acute bony abnormality seen. No acute aortic findings suspected. IMPRESSION: Resolution of prior pneumonia findings. Patient has chronic interstitial lung disease.
[2018-09-09 12:04] LABS: Urine Blood NEGATIVE (NEG); Urine Glucose NEGATIVE (NEG); Urine Protein NEGATIVE (NEG); Urine Specific Gravity 1.015 (1.005-1.030); Urine pH 8.5 (5.0-7.0)
[2018-09-09 12:06] LABS: Absolute Lymphocytes (CBC) 1.3 K/uL (0.7-4.9); Absolute Monocytes 0.7 K/uL (0.1-1.3); Absolute Neutrophil 7.3 K/uL (1.8-8.0); Basophils % 0.9 % (0-1.3); Eosinophils % 8.4 % (0-4.4); Hematocrit 38.8 % (39.6-49.0); Lymphocytes % 12.9 % (15.3-44.8); MCH 29.7 pg (27.0-35.0); MCV 85.6 fL (80-100); MPV 7.9 fL (7.6-11.3); Monocytes % 6.5 % (3.3-12.3); RBC Red Blood Cell Count 4.53 M/uL (4.33-5.43)
[2018-09-09 12:20] LABS: Protime INR 2.1
[2018-09-09 12:37] LABS: ALT/SGPT 27 U/L (12-78); AST/SGOT 18 U/L (15-37); Albumin 3.4 g/dL (3.4-5.0); Alkaline Phosphatase 120 U/L (45-117); BUN Blood Urea Nitrogen 15 mg/dL (7-18); Bicarbonate 29 mmol/L (21-32); Bilirubin Direct 0.9 mg/dL (0-0.2); Bilirubin Total 2.4 mg/dL (0.2-1.0); Glucose Level 100 mg/dL (74-106); Lipase 284 U/L (73-393); Magnesium 2.2 mg/dL (1.8-2.4); NT PRO-BNP 8045 pg/mL (<125); Potassium 3.5 mmol/L (3.5-5.1); Protein, Total 6.9 g/dL (6.4-8.2); Sodium Level 134 mmol/L (136-145); Troponin (Emerg Dept Use Only) 0.03 ng/mL (0.0-0.045)
--- NOTE | 2018-09-09 13:55 | RAD REPORT ---
EXAM DESCRIPTION: CT - Chest For Pe Angio - 09/09/2018 1:28 pm CLINICAL HISTORY: Chest pain, cough, COPD, pneumonia COMPARISON: Chest September 09, chest September 05, CT chest November 2015 TECHNIQUE: Dynamically enhanced 3 mm thick images of the chest were obtained during administration o f approximately 150mL Isovue 370 IV contrast. Coronal and oblique MIP reconstruction images were gene rated and reviewed. Exam utilizes a protocol to evaluate the pulmonary arterial tree. All CT scans are performed using dose optimization technique as appropriate and may include automated exposure control or mA/KV adjustment according to patient size. FINDINGS: No pulmonary emboli are identified. Aorta assessment is limited. There is minimal contrast within the lumen of the aorta. Aortic calcific ations are present without aneurysm or displaced calcification. No pericardial thickening or effusion . Mild cardiomegaly is present. Trace amount of bilateral pleural fluid is present. There is airspace opacification in each posterior gutter favored to be remnant pneumonia rather than simple atelectasis. No pneumothorax or pleural ba sed mass. Patient has underlying emphysema changes in the mid and upper lung hyde. Nonspecific mediastinal and hilar lymph nodes are present similar to prior imaging. No chest wall mas ses or abnormal axillary lymphadenopathy. IMPRESSION: No pulmonary emboli identified. Small posterior bilateral lung base pneumonia with trace pleural effusion.
--- NOTE | 2018-09-09 14:01 | EDPHYS ---
Physician Documentation [facility] Name: Dequan Ramirez Age: 73 yrs Sex: Male : 1945 Arrival Date: 09/09/2018 Time: 09:56 Bed 20 Private MD: Moy Lord ED Physician Derrek Mcknight HPI: 09/09 10:31 This 73 yrs old Male presents to ER via Ambulatory with complaints of alison Allergic Reaction. 10:31 The patient presents with nasal itching, runny nose, shortness of breath, swelling of alison the lips. Onset: The symptoms/episode began/occurred 3 day(s) ago. Associated signs and symptoms: Pertinent positives: nausea, shortness of breath. Possible causes: The patient has no known obvious cause for the symptoms. At home the patient or guardian has treated the symptoms with nothing. Severity of symptoms: At their worst the symptoms were mild moderate in the emergency department the symptoms have improved moderately. The patient has not experienced similar symptoms in the past. Historical: - Allergies: 10:12 PENICILLINS; aa5 - Home Meds: 10:12 Coumadin 5 mg Oral tab 1 tab once daily [Active]; digoxin 250 mcg Oral tab 1 tab once aa5 daily [Active]; lisinopril 20 mg Oral tab 1 tab once daily [Active]; simvastatin 20 mg Oral tab 1 tab once daily [Active]; sotalol 80 mg Oral tab 1 tab 2 times per day [Active]; - PMHx: 10:12 Atrial Fib; COLON CA; COPD; Dementia; DVT; High Cholesterol; Hypertension; aa5 - Immunization history:: Flu vaccine is not up to date. - Social history:: Smoking status: Patient/guardian denies using tobacco. - Ebola Screening: : No symptoms or risks identified at this time. - Family history:: not pertinent. ROS: 10:31 Constitutional: Negative for fever, chills, and weight loss, Eyes: Negative for injury, alison pain, redness, and discharge, ENT: Negative for injury, pain, and discharge, Neck: Negative for injury, pain, and swelling, Cardiovascular: Negative for chest pain, palpitations, and edema, Abdomen/GI: Negative for abdominal pain, nausea, vomiting, diarrhea, and constipation, Back: Negative for injury and pain, : Negative for injury, bleeding, discharge, and swelling, MS/Extremity: Negative for injury and deformity, Skin: Negative for injury, rash, and discoloration, Neuro: Negative for headache, weakness, numbness, tingling, and seizure, Psych: Negative for depression, anxiety, suicide ideation, homicidal ideation, and hallucinations, Allergy/Immunology: Negative for hives, rash, and allergies, Endocrine: Negative for neck swelling, polydipsia, polyuria, polyphagia, and marked weight changes, Hematologic/Lymphatic: Negative for swollen nodes, abnormal bleeding, and unusual bruising. 10:31 Respiratory: Positive for cough, shortness of breath, at rest. Exam: 10:31 Constitutional: This is a well developed, well nourished patient who is awake, alert, alison and in no acute distress. Head/Face: Normocephalic, atraumatic. Eyes: Pupils equal round and reactive to light, extra-ocular motions intact. Lids and lashes normal. Conjunctiva and sclera are non-icteric and not injected. Cornea within normal limits. Periorbital areas with no swelling, redness, or edema. ENT: Nares patent. No nasal discharge, no septal abnormalities noted. Tympanic membranes are normal and external auditory canals are clear. Oropharynx with no redness, swelling, or masses, exudates, or evidence of obstruction, uvula midline. Mucous membranes moist. Neck: Trachea midline, no thyromegaly or masses palpated, and no cervical lymphadenopathy. Supple, full range of motion without nuchal rigidity, or vertebral point tenderness. No Meningismus. Chest/axilla: Normal chest wall appearance and motion. Nontender with no deformity. No lesions are appreciated. Cardiovascular: Regular rate and rhythm with a normal S1 and S2. No gallops, murmurs, or rubs. Normal PMI, no JVD. No pulse deficits. Abdomen/GI: Soft, non-tender, with normal bowel sounds. No distension or tympany. No guarding or rebound. No evidence of tenderness throughout. Back: No spinal tenderness. No costovertebral tenderness. Full range of motion. Skin: Warm, dry with normal turgor. Normal color with no rashes, no lesions, and no evidence of cellulitis. MS/ Extremity: Pulses equal, no cyanosis. Neurovascular intact. Full, normal range of motion. Neuro: Awake and alert, GCS 15, oriented to person, place, time, and situation. Cranial nerves II-XII grossly intact. Motor strength 5/5 in all extremities. Sensory grossly intact. Cerebellar exam normal. Normal gait. Psych: Awake, alert, with orientation to person, place and time. Behavior, mood, and affect are within normal limits. 10:31 Respiratory: the patient does not display signs of respiratory distress, Respirations: normal, no acute changes, Breath sounds: are clear throughout, no bronchial sounds, no rales, no stridor, no wheezing, bronchial sounds, that are mild, rhonchi, that are mild, Respiratory rate: 18 Vital Signs: 10:13 BP 163 / 106; Pulse 70; Resp 18 S; Temp 98.1(O); Pulse Ox 98% on R/A; Weight 74.84 kg aa5 (R); Height 5 ft. 11 in. (180.34 cm) (R); Pain 0/10; 11:29 BP 165 / 52; Pulse 60; Resp 18; Pulse Ox 96% on R/A; hj 12:30 BP 160 / 60; Pulse 65; Resp 18; Pulse Ox 100% on R/A; hj 13:15 BP 158 / 65; Pulse 67; Resp 18; Pulse Ox 100% on R/A; hj 13:53 BP 162 / 60; Pulse 60; Resp 18; Pulse Ox 100% on 2 lpm NC; hj 10:13 Body Mass Index 23.01 (74.84 kg, 180.34 cm) aa5 MDM: 10:14 Patient medically screened. [facility] 10:34 Data reviewed: vital signs, nurses notes, lab test result(s), EKG, radiologic studies, [facility] CT scan, plain films. 09/09 10:29 Order name: Basic Metabolic Panel; Complete Time: 12:51 [facility] 09/09 10:29 Order name: CBC with Diff; Complete Time: 12:51 [facility] 09/09 10:29 Order name: LFT's; Complete Time: 12:51 [facility] 09/09 10:29 Order name: Magnesium; Complete Time: 12:51 [facility] 09/09 10:29 Order name: NT PRO-BNP; Complete Time: 12:51 [facility] 09/09 10:29 Order name: PT-INR; Complete Time: 12:51 [facility] 09/09 10:29 Order name: Troponin (emerg Dept Use Only); Complete Time: 12:51 [facility] 09/09 10:29 Order name: Blood Culture Adult (2) [facility] 09/09 10:29 Order name: Lipase; Complete Time: 12:51 [facility] 09/09 10:29 Order name: Urine Culture [facility] 09/09 10:29 Order name: Influenza Screen (a \T\ B); Complete Time: 12:51 [facility] 09/09 10:29 Order name: Digoxin; Complete Time: 12:51 [facility] 09/09 10:30 Order name: Procalcitonin; Complete Time: 12:51 [facility] 09/09 11:10 Order name: Urine Dipstick--Ancillary (enter results); Complete Time: 12:51 09/09 10:29 Order name: XRAY Chest (1 view); Complete Time: 12:51 [facility] 09/09 10:29 Order name: EKG; Complete Time: 10:31 [facility] 09/09 10:29 Order name: Cardiac monitoring; Complete Time: 10:32 [facility] 09/09 10:29 Order name: EKG - Nurse/Tech; Complete Time: 10:43 [facility] 09/09 10:29 Order name: IV Saline Lock; Complete Time: 10:49 [facility] 09/09 10:29 Order name: Labs collected and sent; Complete Time: 10:49 [facility] 09/09 10:29 Order name: O2 Per Protocol; Complete Time: 10:32 [facility] 09/09 10:29 Order name: O2 Sat Monitoring; Complete Time: 10:32 [facility] 09/09 10:29 Order name: Urine Dipstick-Ancillary (obtain specimen); Complete Time: 11:15 [facility] 09/09 10:29 Order name: CT Chest For PE Angio [facility] 09/09 11:08 Order name: Labs - recollect needed; Complete Time: 11:53 bd Administered Medications: 10:56 Drug: Pepcid 20 mg Route: IVP; Site: right forearm; hj 11:26 Follow up: Response: No adverse reaction hj 10:56 Drug: Rocephin - (cefTRIAXone) 1 grams Route: IVPB; Infused Over: 30 mins; Site: right hj forearm; 14:19 Follow up: IV Status: Completed infusion hj 10:56 Drug: Zithromax 500 mg Route: IVPB; Infused Over: 1 hrs; Site: right forearm; hj 14:19 Follow up: IV Status: Completed infusion hj 13:58 Drug: Lasix 20 mg Route: IVP; Site: right forearm; hj 14:03 Follow up: Response: No adverse reaction Disposition: 09/09/18 14:00 Discharged to Home. Impression: Atrial fibrillation and flutter - on coumadin, Essential (primary) hypertension, Acute upper respiratory infection, unspecified, Cardiomegaly, Unspecified combined systolic (congestive) and diastolic (congestive) heart failure, Pneumonia due to other specified bacteria, Pleural effusion in conditions classified elsewhere. - Condition is Stable. - Discharge Instructions: Atrial Fibrillation, Heart Failure, Hemoptysis, Hypertension, Pleural Effusion, Community-Acquired Pneumonia, Adult, Hypertension, Elgk-us-[id number], Community-Acquired Pneumonia, Adult, Wfes-ly-Enol, Atrial Fibrillation, Dwum-fu-Tdqa, Hemoptysis, Tdkf-oh-Lrvg, Managing Your Hypertension. - Prescriptions for Protonix 40 mg Oral Tablet - take 1 tablet by ORAL route once daily; 30 tablet. Ceftin 500 mg Oral Tablet - take 1 tablet by ORAL route every 12 hours for 7 days; 14 tablet. - Medication Reconciliation Form, Thank You Letter, Antibiotic Education, Prescription Opioid Use form. - Follow up: Moy Lord; When: 2 - 3 days; Reason: Recheck today's complaints, Continuance of care, Re-evaluation by your physician. Follow up: Miguel Disla MD; When: 2 - 3 days; Reason: Recheck today's complaints, Continuance of care, Re-evaluation by your physician. - Problem is new. - Symptoms have improved. Signatures: Dispatcher [employer] EDMS Dahlia West Corey, MD MD cha Calderon, Audri RN RN aa5 José Antonio Blanton RN RN hj Corrections: (The following items were deleted from the chart) 14:23 14:00 09/09/2018 14:00 Discharged to Home. Impression: Atrial fibrillation and flutter hj - on coumadin; Essential (primary) hypertension; Acute upper respiratory infection, unspecified; Cardiomegaly; Unspecified combined systolic (congestive) and diastolic (congestive) heart failure; Pneumonia due to other specified bacteria; Pleural effusion in conditions classified elsewhere. Condition is Stable. Discharge Instructions: Atrial Fibrillation, Hemoptysis, Hypertension, Hypertension, Bihd-pt-[id number], Atrial Fibrillation, Aoux-fz-Plbb, Hemoptysis, Gpbq-rj-[id number], Managing Your Hypertension. Prescriptions for Protonix 40 mg Oral Tablet - take 1 tablet by ORAL route once daily; 30 tablet, Zithromax Z-Boni 250 mg Oral Tablet - take 1 tablet by ORAL route as directed for 5 days Day 1 - take two (2) tablets one time. Day 2, 3, 4 , 5 take one (1) tablet once daily.; 6 tablet. and Forms are Medication Reconciliation Form, Thank You Letter, Antibiotic Education, Prescription Opioid Use. Follow up: Moy Lord; When: 2 - 3 days; Reason: Recheck today's complaints, Continuance of care, Re-evaluation by your physician. Follow up: Miguel Disla; When: 2 - 3 days; Reason: Recheck today's complaints, Continuance of care, Re-evaluation by your physician. Problem is new. Symptoms have improved. alison
--- NOTE | 2018-09-09 14:01 | ER ---
Nurse's Notes [facility] Name: Dequan Ramirez Age: 73 yrs Sex: Male : 1945 Arrival Date: 09/09/2018 Time: 09:56 Bed 20 Private MD: Moy Lord Diagnosis: Atrial fibrillation and flutter-on coumadin;Essential (primary) hypertension;Acute upper respiratory infection, unspecified;Cardiomegaly;Unspecified combined systolic (congestive) and diastolic (congestive) heart failure;Pneumonia due to other specified bacteria;Pleural effusion in conditions classified elsewhere Presentation: 09/09 10:09 Presenting complaint: Patient states: "I was seen here Sunday night and I was aa5 admitted with Pneumonia and they sent me home with some antibiotics but I stopped taking them because my lips started swelling up". Pt reports he was prescribed Cefuroxime Axetil 250mg BID and last dose was yesterday morning. Pt states "I tried to see my doctor but he is not back until September". Pt's family also states "they did blood work on Sunday and Dr. Lord's office called today and said that his INR 1.9 and his WBC was high". Transition of care: patient was not received from another setting of care. Risk Assessment: Do you want to hurt yourself or someone else? Patient reports no desire to harm self or others. Care prior to arrival: None. 10:09 Method Of Arrival: Ambulatory aa5 10:09 Acuity: [place] 3 aa5 10:15 Onset of symptoms is unknown. Initial Sepsis Screen: Does the patient meet any 2 hj criteria? No. Patient's initial sepsis screen is negative. Does the patient have a suspected source of infection? No. Patient's initial sepsis screen is negative. Triage Assessment: 10:15 General: Appears in no apparent distress. uncomfortable, Behavior is calm, cooperative, hj appropriate for age. Pain: Denies pain. Historical: - Allergies: 10:12 PENICILLINS; aa5 - Home Meds: 10:12 Coumadin 5 mg Oral tab 1 tab once daily [Active]; digoxin 250 mcg Oral tab 1 tab once aa5 daily [Active]; lisinopril 20 mg Oral tab 1 tab once daily [Active]; simvastatin 20 mg Oral tab 1 tab once daily [Active]; sotalol 80 mg Oral tab 1 tab 2 times per day [Active]; - PMHx: 10:12 Atrial Fib; COLON CA; COPD; Dementia; DVT; High Cholesterol; Hypertension; aa5 - Immunization history:: Flu vaccine is not up to date. - Social history:: Smoking status: Patient/guardian denies using tobacco. - Ebola Screening: : No symptoms or risks identified at this time. - Family history:: not pertinent. Screenin:15 Abuse screen: Denies threats or abuse. Denies injuries from another. Nutritional hj screening: No deficits noted. Tuberculosis screening: No symptoms or risk factors identified. Fall Risk None identified. Assessment: 10:30 General: Appears in no apparent distress. uncomfortable, Behavior is calm, cooperative, hj appropriate for age. Pain: Complains of pain in lips. Pain:. Neuro: Level of Consciousness is awake, alert, obeys commands, Oriented to person, place, time, situation, Appropriate for age. Cardiovascular: Capillary refill < 3 seconds Patient's skin is warm and dry. Respiratory: Airway is patent Respiratory effort is even, unlabored, Respiratory pattern is regular, symmetrical. GI: No signs and/or symptoms were reported involving the gastrointestinal system. : No signs and/or symptoms were reported regarding the genitourinary system. EENT: No signs and/or symptoms were reported regarding the EENT system. Derm: No signs and/or symptoms reported regarding the dermatologic system. Musculoskeletal: No signs and/or symptoms reported regarding the musculoskeletal system. 11:30 Reassessment: Patient and/or family updated on plan of care and expected duration. Pain hj level reassessed. Patient is alert, oriented x 3, equal unlabored respirations, skin warm/dry/pink. awaiting results;. 12:30 Reassessment: Patient and/or family updated on plan of care and expected duration. Pain hj level reassessed. Patient is alert, oriented x 3, equal unlabored respirations, skin warm/dry/pink. Patient states feeling better. Patient states symptoms have improved. 13:14 Reassessment: Patient and/or family updated on plan of care and expected duration. Pain hj level reassessed. Patient is alert, oriented x 3, equal unlabored respirations, skin warm/dry/pink. Patient states feeling better. Patient states symptoms have improved. 13:54 Reassessment: Patient and/or family updated on plan of care and expected duration. Pain hj level reassessed. Patient is alert, oriented x 3, equal unlabored respirations, skin warm/dry/pink. awaiting CT for PE;. Vital Signs: 10:13 BP 163 / 106; Pulse 70; Resp 18 S; Temp 98.1(O); Pulse Ox 98% on R/A; Weight 74.84 kg aa5 (R); Height 5 ft. 11 in. (180.34 cm) (R); Pain 0/10; 11:29 BP 165 / 52; Pulse 60; Resp 18; Pulse Ox 96% on R/A; hj 12:30 BP 160 / 60; Pulse 65; Resp 18; Pulse Ox 100% on R/A; hj 13:15 BP 158 / 65; Pulse 67; Resp 18; Pulse Ox 100% on R/A; hj 13:53 BP 162 / 60; Pulse 60; Resp 18; Pulse Ox 100% on 2 lpm NC; hj 10:13 Body Mass Index 23.01 (74.84 kg, 180.34 cm) aa5 ED Course: 09:56 Patient arrived in ED. mr 09:58 Moy Lord, is Private Physician. mr 10:09 Arm band placed on. aa5 10:10 Triage completed. aa5 10:14 José Antonio Blanton, ABELINO is Primary Nurse. hj 10:14 Derrek Mcknight MD is Attending Physician. [facility] 10:15 Patient has correct armband on for positive identification. Bed in low position. Call hj light in reach. Side rails up X 1. Adult w/ patient. 10:53 EKG done, by contract technical writer. reviewed by Derrek Mcknight MD. at1 11:00 Initial lab(s) drawn, by tn, sent to lab. First set of blood cultures drawn by tn, [facility] Second set of blood cultures drawn by tn, Urine collected: clean catch specimen, clear. 11:07 X-ray completed. Portable x-ray completed in exam room. Patient tolerated procedure jb2 well. 11:08 XRAY Chest (1 view) In Process Unspecified. EDMS 11:13 Inserted saline lock: 20 gauge in right forearm, using aseptic technique. Blood 5 collected. 11:14 Warm blanket given. clinical research monitor on. Pulse ox on. NIBP on. 5 11:14 Urine Dipstick--Ancillary (enter results) Sent. mh5 11:14 Influenza Screen (a \\T\\ B) Sent. mh5 11:15 Blood Culture Adult (2) Sent. mh5 11:15 Lipase Sent. mh5 11:15 Basic Metabolic Panel Sent. mh5 11:15 CBC with Diff Sent. mh5 11:15 LFT's Sent. mh5 11:15 Magnesium Sent. mh5 11:15 NT PRO-BNP Sent. mh5 11:15 PT-INR Sent. mh5 11:15 Troponin (emerg Dept Use Only) Sent. mh5 12:04 Urine Culture Sent. mh5 12:04 Lipase Sent. mh5 12:04 Blood Culture Adult (2) Sent. mh5 12:04 Basic Metabolic Panel Sent. mh5 12:04 CBC with Diff Sent. mh5 12:04 LFT's Sent. mh5 12:05 Magnesium Sent. mh5 12:05 NT PRO-BNP Sent. mh5 12:05 PT-INR Sent. mh5 12:05 Troponin (emerg Dept Use Only) Sent. mh5 12:05 Lab(s) recollected, by me, sent to lab. mh5 13:29 CT Chest For PE Angio In Process Unspecified. EDMS 13:59 Moy Lord DO is Referral Physician. alison 14:00 Miguel Disla MD is Referral Physician. alison 14:18 No provider procedures requiring assistance completed. IV discontinued, intact, hj bleeding controlled, No redness/swelling at site. Pressure dressing applied. Administered Medications: 10:56 Drug: Pepcid 20 mg Route: IVP; Site: right forearm; hj 11:26 Follow up: Response: No adverse reaction hj 10:56 Drug: Rocephin - (cefTRIAXone) 1 grams Route: IVPB; Infused Over: 30 mins; Site: right hj forearm; 14:19 Follow up: IV Status: Completed infusion hj 10:56 Drug: Zithromax 500 mg Route: IVPB; Infused Over: 1 hrs; Site: right forearm; hj 14:19 Follow up: IV Status: Completed infusion hj 13:58 Drug: Lasix 20 mg Route: IVP; Site: right forearm; hj 14:03 Follow up: Response: No adverse reaction hj Outcome: 14:00 Discharge ordered by . alison 14:18 Discharged to home ambulatory, with family. hj 14:18 Condition: stable 14:18 Discharge instructions given to patient, family, Instructed on discharge instructions, follow up and referral plans. medication usage, Demonstrated understanding of instructions, follow-up care, medications, Prescriptions given X 2. 14:23 Patient left the ED. hj Signatures: Dispatcher [employer] EDDerrek Beltrán MD MD cha Rivera, Bonnie Arroyo, [place] jb2 Cynthia Celestin, RN RN aa5 Astrid Fields, creative consultant EKG Tat1 José Antonio Blanton RN RN hj [place] [id number] Corrections: (The following items were deleted from the chart) 10:11 10:09 Presenting complaint: Patient states: "I was seen here Sunday night and I was aa5 admitted with Pneumonia and they sent me home with some antibiotics but I stopped taking them because my lips started swelling up". Pt reports he was prescribed Cefuroxime Axetil 250mg BID and last dose was yesterday morning. aa5 13:16 12:30 BP 158 / 65; Pulse 67bpm; Resp 18bpm; Pulse Ox 100% RA; hj hj
[2018-09-09] MEDS ORDERED: FUROSEMIDE 20 MG/ 2ML VIAL ONE (14:10)
[2018-09-09 14:56] VITALS: TEMP 98.1
[2018-09-09 14:58] VITALS: O2SAT 100
[2018-09-09 15:00] VITALS: BP 162/60
--- NOTE | 2018-09-09 15:31 | EKG ---
Test Date: 2018-09-09 Test Time: 10:36:21 [employer]: JESUS ALBERTO MEASUREMENT RESULTS: Intervals: Rate: 66 IA: QRSD: 108 QT: 412 QTc: 431 [place]: P: IA: QRS: 88 T: -31 INTERPRETIVE STATEMENTS: Atrial fibrillation Nonspecific ST and T wave abnormality Abnormal ECG Compared to ECG 09/04/2018 16:29:08 Ventricular premature complex(es) no longer present ST (T wave) deviation still present Electronically Signed On 09-09-18 15:31:30 COMMUNICATIONS STRATEGIST by Miguel Disla
== END 2018-09-09 14:23 | disposition home or self-care (01) ==
LOC: ER 09:53
DX: J15.8 Pneumonia due to other specified bacteria (principal); J91.8 Pleural effusion in other conditions classified elsewhere; I50.40 Unspecified combined systolic (congestive) and diastolic (congestive) heart failure; I51.7 Cardiomegaly; I10 Essential (primary) hypertension; I48.91 Unspecified atrial fibrillation; I48.92 Unspecified atrial flutter; E78.00 Pure hypercholesterolemia, unspecified; F03.90 Unspecified dementia, unspecified severity, without behavioral disturbance, psychotic disturbance, mood disturbance, and anxiety; Z79.01 Long term (current) use of anticoagulants; Z88.0 Allergy status to penicillin; Z85.038 Personal history of other malignant neoplasm of large intestine
CPT/HCPCS: 36415; 71045; 71275; 80048; 80076; 80162; 81003; 83690; 83735; 83880; 84145; 84484; 85025; 85610; 87040; 87086; 87088; 87804; 93005; 96365; 96366; 96368; 96375; 99285; J0456; J0696; J1940; Q9967

== ENCOUNTER 2021-12-21 07:31 | Day surgery (SDC) | payer OTHER ==
[~2021-12-21 07:31] MED LIST: FUROSEMIDE 20 MG/ 2ML VIAL IV PRN
[2021-12-21 08:44] VITALS: BMI 20.2
[2021-12-21] MEDS ORDERED: FUROSEMIDE 40 MG/4 ML VIAL ONE (10:54)
[2021-12-21 11:29] VITALS: BP 125/39; TEMP 98.6
[2021-12-21 16:21] VITALS: O2SAT 98
== END 2021-12-21 16:20 | disposition home or self-care (01) ==
LOC: DS 07:31
PROVIDERS: ATTEND Internal Medicine Gastroenterology
DX: D64.9 Anemia, unspecified (principal)
CPT/HCPCS: 36415; 86900; 86850; 86901; 85018; 85014; 36430; J1940; P9016 ×2

== ENCOUNTER 2022-07-15 20:04 | Inpatient (IN) | payer OTHER ==
--- OUTSIDE RECORDS SUMMARY | 2022-07-15 20:11 | XMS REPORT | Continuity of Care Document ---
:1945 Author Organization [facility] t Address [address] [place] [address] Care Team Providers Name Role Phone Naya Worthy Primary Care Physician [phone] Naya Valerio Attending Clinician Unavailable Jacob HEBERT, Mega Dominique Attending Clinician Tobias Williamson MD Attending Clinician [phone] Daksha HEBERT, Miladys Oliveira Attending Clinician [phone] Tien Zuniga Attending Clinician Teetee Keith MD Attending Clinician Denise Blank MA Attending Clinician Unavailable Ton Emerson MA Attending Clinician Unavailable Judy Narvaez RN Attending Clinician Unavailable Jh Rooney MA Attending Clinician Unavailable Erin Russell MA Attending Clinician Unavailable MD TOBIAS WILLIAMSON Attending Clinician Unavailable Franchesca Lam LVN Attending Clinician Unavailable MARK ORTEGA Attending Clinician Unavailable MD MEGA JAMES Attending Clinician Unavailable TOBIAS WILLIAMSON Admitting Clinician Unavailable MD TOBIAS WILLIAMSON Admitting Clinician Unavailable MEGA JAMES Admitting Clinician Unavailable MD MEGA JAMES Admitting Clinician Unavailable Payers Payer Name Policy Type Policy Number Effective Date Expiration Date Alfonzo scanlon [facility] 53 [id number] 2020 [facility] ADVANTAGE 00:00:00 - [facility] MEDICARE MB [id number] [facility] NOVITAS - [facility] AAR Medicare C1 [id number] [facility] Advantage - [facility] AAR Medicare C1 [id number] [facility] Advantage [facility] Problems Condition Condition Condition Status Onset Resolution Last Treating Co mments Source Name Details Category Date Date Treatment Clinician Date History of History of Disease Active M ethodi coronary coronary 3-09 st artery artery 00:00: Hospita stent stent 00 l placement placement Acute on Acute on Disease Active Overview: Me thodi chronic chronic 04-[address] combined combined 00:00: g of this Hos last systolic systolic 00 note l and and might be diastolic diastolic different congestive congestive from the heart heart original. 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 9-18 st artery artery 00:00: Hospita disease disease 00 l CAD in CAD in Disease Active Methodi ione ione 3-20 st artery artery 00:00: Hospita 00 l Hx of CABG Hx of CABG Disease Active M ethodi 1-10 st 00:00: Hospita 00 l Paroxysmal Paroxysmal Disease Active M ethodi atrial atrial 1-10 st fibrillati fibrillati 00:00: Ho spita on on 00 l Essential Essential Disease Active Met hodi hypertensi hypertensi 1-10 st on on 00:00: Hospita 00 l Congestive Congestive Disease Active M ethodi heart heart 1-10 st failure failure 00:00: Hospita 00 l PAD PAD Disease Active Methodi (periphera (periphera 1-10 st l artery l artery 00:00: Hospit a disease) disease) 00 l Atrial Atrial Disease Active Methodi fibrillati fibrillati 1-10 st on on 00:00: Hospita 00 l SOB SOB Disease Active Methodi (shortness (shortness 1-10 st of breath) of breath) 00:00: Ho spita 00 l [id number] Retina Problem Common disorder [facility] [id number] +5th digit Problem Co mmon eff Spirit 06/24/20*[place] - [facility] stroesopha [facility] reflux Medical disease Center with esophagiti s Asbestosis Asbestosis Problem C ommon Spirit [facility] Hyperlipid Hyperlipid Problem C ommon emia emia [facility] Long-term USP Problem Com mon current (current) Spirit use of use of - CHI anticoagul anticoagul ant [facility] [id number] Bleeding Problem Comm on nose [facility] Benign BPH Problem Common prostatic (benign Spirit hypertroph prostatic - C HI y with hypertroph St outflow y) with [facility] obstructio urinary Medic al n obstructio Center n [id number] Other Problem Common fatigue [facility] Chronic Chronic Problem Common obstructiv obstructiv Sp rosa e e - CHI pulmonary pulmonary [facility] [id number] History of Problem Co mmon DVT (deep Spirit vein - [facility] thrombosis [facility] [id number] PVD Problem Common (periphera Spirit l vascular - CHI disease) [facility] [id number] Nonexudati Problem Co mmon ve Spirit age-relate - [facility] unspecifie Center d laterality , unspecifie d stage [id number] Anemia due Problem Co mmon to other Spirit cause, not - CHI classified [facility] Allergies, Adverse Reactions, Alerts Allergy Allergy Status Severity Reaction(s) Onset Inactive Treating Comm ents Source Name Type Date Date Clinician Penicill Propensi Active Rash Method i ins ty to 1-10 st adverse 00:00: Hospita reaction 00 l s to drug 0 Drug Active hives Common allergy [facility] Social History Social Habit Start Date Stop Date Quantity Comments Source History of [facility] - Tobacco Use [facility] Alcohol intake 2022-06-27 2022-06-27 Current drinker [facility] dist 00:00:00 00:00:00 of alcohol Hospital (finding) Tobacco use and 2022-06-20 2022-06-20 Former smokeless Met hodist exposure 00:00:00 00:00:00 tobacco user Hospital Sex Ass[birth year] At [birth year] Jain 00:00:00 00:00:00 Hospital Smoking Status Start Date Stop Date Source Former Smoker 2022-04-02 00:00:00 2022-04-02 00:00:00 [facility] - [facility] Medications Ordered Filled Start Stop Current Ordering Indication Dosage Frequency Signature Comments Components Source Medication Medication Date Date Medication? Clinician (SIG) Name Name lisinopriL 2021-09 Yes 1{tbl} QD Take 1 Met hodi 20 mg 0-[address] tablet 1 10:13: mouth Hospita tablet, 36 daily. l hydroCHLORO thiazide 25 MG tablet 1 tablet metoprolol 2021-09 Yes 25mg Q.5D Take 25 mg M ethodi succinate 0-[address] XL 10:13: (two) Hospita (TOPROL-XL) 36 times a l 25 mg 24 hr day. tablet omeprazole 2021-09 Yes 40mg Q.5D Take 40 mg M ethodi (PriLOSEC) 0-[address] 40 MG 10:13: (two) Hospita capsule 36 times a l day. garlic 2021-09 Yes 1{capsu Take 1 Method i 1,000 mg 0-04 le} capsule by st capsule 10:13: mouth. Hospita 36 l multivit-mi 2021-09 Yes 1{tbl} Take 1 Me thodi n/FA/lycope 0-[address] n/lutein 10:13: mouth. Hospita (CENTRUM 36 l SILVER MEN ORAL) doxycycline 2021-09 Yes 100mg Q.5D Take 1 Met hodi (VIBRAMYCIN 0-[address] ) 100 MG 10:13: (100 mg Hospit a capsule 36 total) by l mouth 2 (two) times a day. X 1 WEEK furosemide Yes [id number] TAKE 1 M ethodi (LASIX) 20 9-[address] mg tablet 00:00: MOUTH Hospita 00 DAILY l Xarelto 20 Yes TAKE 1 Metho di mg tablet 5-[address] 00:00: MOUTH Hospita 00 DAILY FOR l ATRIAL FIBRILLATI ON ferrous Yes 324mg [id number] Take 1 M ethodi gluconate - [id number] tablet st (FERGON) 00:00: 3D (324 mg Hospit a 324 MG 00 total) by l tablet mouth 3 (three) times a day with meals. ferrous 2021-0 2021- No 324mg [id number] Take 1 Methodi gluconate 5- 05- [id number] tablet s t (FERGON) 00:00: 00:00 3D (324 mg Hospi ta 324 MG 00 :00 total) by l tablet mouth 3 (three) times a day with meals. potassium Yes 10meq QD Take 1 Metho di chloride 4-27 tablet (10 st (K-DUR) 10 00:00: mEq total) H ospita MEQ CR 00 by mouth l tablet daily. furosemide 2021-2021- No [id number] 20mg QD Take 1 Methodi (LASIX) 20 3-28 09- tablet (20 st mg tablet 00:00: 00:00 mg total) Ho spita 00 :00 by mouth l daily. digOXIN Yes [id number] TAKE 1 Meth maddie (LANOXIN) 2-[address] 250 mcg 00:00: MOUTH Hospita (0.25 mg) 00 DAILY l tablet rosuvastati Yes TAKE 1 Meth maddie n (CRESTOR) 2-[address] 20 mg 00:00: MOUTH AT Hospita tablet 00 NIGHT l rivaroxaban 2021-2021- No 20mg QD Take 1 Met hodi (Xarelto) 09-29- tablet (20 st 20 mg 00:00: 00:00 mg total) Hospit a tablet 00 :00 by mouth l daily for 180 days .Atrial fibrillati on. rivaroxaban 2020-09- No 20mg QD Take 1 Met hodi (Xarelto) 2-06 10- tablet (20 st 20 mg 00:00: 00:00 mg total) Hospit a tablet 00 :00 by mouth l daily for 60 days .Atrial fibrillati on. dapaglifloz 2020-0 2020- No 10mg QD Take 1 Met hodi in 05-20- tablet (10 st (FARXIGA) 00:00: 00:00 mg total) Ho spita 10 mg 00 :00 by mouth l tablet daily. metoprolol 2020- No [id number] 50mg QD Take 2 Methodi succinate 8-16 11-[address] XL 00:00: 05:59 (50 mg Hospita (TOPROL-XL) 00 :00 total) by l 25 mg 24 hr mouth tablet daily for 90 days. potassium 2021- No TAKE 1 Metho di chloride 12-27 04-[address] (K-DUR) 10 00:00: 00:00 MOUTH Hospi ta MEQ CR 00 :00 DAILY l tablet furosemide 2021- No [id number] TAKE 1 Methodi (LASIX) 20 12-27- TABLET BY st mg tablet 00:00: 00:00 MOUTH 5 Hosp murali 00 :00 TIMES l WEEKLY digOXIN 2021- No [id number] TAKE 1 Met hodi (LANOXIN) 12-[address] 250 mcg 00:00: 00:00 MOUTH Hospita (0.25 mg) 00 :00 DAILY l tablet rosuvastati 2021- No TAKE 1 Met hodi n (CRESTOR) 12-[address] 20 mg 00:00: 00:00 MOUTH AT Hospita tablet 00 :00 NIGHT l warfarin 2020- No One tablet Me thodi (COUMADIN) 10-21-[address] 5 MG tablet 00:00: 00:00 as Hospi ta 00 :00 directed l by office Susan Davis No 40mg Common (Triamcinol (Triamcinol 5-25 S pirit one) one) 00:00: - CHI 00 [facility] Dexamethaso Dexamethaso 2017-0 No 10mg Common ne ne 5-25 Spirit 00:00: - CHI 00 [facility] Susan Kenalog 2017- No 40mg Common (Triamcinol (Triamcinol 5-25 S pirit one) one) 00:00: - CHI 00 [facility] Dexamethaso Dexamethaso 2018-0 No 10mg Common ne ne 5-25 Spirit 00:00: - CHI [facility] Susan Davis No 40mg Common (Triamcinol (Triamcinol 5-25 S pirit one) one) 00:00: - CHI 00 [facility] Dexamethaso Dexamethaso 2018-0 No 10mg Common ne ne 5-25 Spirit 00:00: - CHI [facility] Kenalog Kenalog 2018-0 No 40mg Common (Triamcinol (Triamcinol 5-25 S pirit one) one) 00:00: - CHI [facility] Dexamethaso Dexamethaso 2018-0 No 10mg Common ne ne 5-25 Spirit 00:00: - CHI [facility] Kenalog Kenalog 2018-0 No 40mg Common (Triamcinol (Triamcinol 5-25 S pirit one) one) 00:00: - CHI [facility] Dexamethaso Dexamethaso 2018-0 No 10mg Common ne ne 5-25 Spirit 00:00: - CHI [facility] Kenalog Kenalog 0 No 40mg Common (Triamcinol (Triamcinol 5-25 S pirit one) one) 00:00: - CHI [facility] Dexamethaso Dexamethaso 2018-0 No 10mg Common ne ne 5-25 Spirit 00:00: - CHI [facility] Kenalog Kenalog 2018-0 No 40mg Common (Triamcinol (Triamcinol 5-25 S pirit one) one) 00:00: - CHI [facility] Dexamethaso Dexamethaso 2018-0 No 10mg Common ne ne 5-25 Spirit 00:00: - CHI 00 [facility] tamsulosin 2016- Yes .4mg QD Take 0.4 Met hodi (FLOMAX) 2-[address] 0.4 mg 00:00: mouth Hospita capsule,ext 00 daily with l ended dinner. release 24hr Zestoretic Zestoretic Yes Naya TAKE 1 [facility] [place] TABLET BY Spirit MOUTH - CHI EVERY DAY [facility] Lasix Lasix Yes Naya 1 tablet [facility] [place] [facility] - [facility] Simvastatin Simvastatin Yes Naya 1 tablet [facility] [place] in the Spirit evening - CHI [facility] Betapace Betapace Yes Naya 1 tablet Co mmon [place] [facility] - [facility] Tamsulosin Tamsulosin Yes Naya TAKE 1 Common HCl HCl [place] CAPSULE BY [facility] MOUTH - CHI EVERY DAY [facility] Warfarin Warfarin Yes Naya 1 tablet Co mmon Sodium Sodium [facility] Centrum Centrum Yes Naya as Common Silver Silver [place] directed [facility] Digoxin Digoxin Yes Naya 1 tablet Comm on [facility] Potassium Potassium Yes Naya 1 Comm on Chloride CR Chloride CR [facility] Metoprolol Metoprolol No 1{table QD Metoprolol Tartrate 25 Tartrate 25 t_with_ Tartrate MG MG food} 25 MG Centrum Centrum No QD Centrum Silver - Silver - Silver - Digoxin 250 Digoxin 250 No 1{table QD Digoxin MCG MCG t} 250 MCG Potassium Potassium No QD Potassium Chloride CR Chloride CR Chloride 10 MEQ 10 MEQ CR 10 MEQ Rosuvastati Rosuvastati No 1{table QD Rosuvastat n Calcium n Calcium t} in Calcium 20 MG 20 MG 20 MG Tamsulosin Tamsulosin No Tamsulosin HCl 0.4 MG HCl 0.4 MG HCl 0.4 MG Lisinopril- Lisinopril- No Lisinopril hydroCHLORO hydroCHLORO -hydroCHLO thiazide thiazide ROthiazide 20-25 MG 20-25 MG 20-25 MG Warfarin Warfarin No 1{table QD Warfarin Sodium 5 MG Sodium 5 MG t} Sodium 5 MG Lasix 20 MG Lasix 20 MG No 1{table QD Lasix 20 t} MG Metoprolol Metoprolol No 1{table QD Metoprolol Tartrate 25 Tartrate 25 t_with_ Tartrate MG MG food} 25 MG Centrum Centrum No QD Centrum Silver - Silver - Silver - Digoxin 250 Digoxin 250 No 1{table QD Digoxin MCG MCG t} 250 MCG Potassium Potassium No QD Potassium Chloride CR Chloride CR Chloride 10 MEQ 10 MEQ CR 10 MEQ Rosuvastati Rosuvastati No 1{table QD Rosuvastat n Calcium n Calcium t} in Calcium 20 MG 20 MG 20 MG Tamsulosin Tamsulosin No Tamsulosin HCl 0.4 MG HCl 0.4 MG HCl 0.4 MG Lisinopril- Lisinopril- No Lisinopril hydroCHLORO hydroCHLORO -hydroCHLO thiazide thiazide ROthiazide 20-25 MG 20-25 MG 20-25 MG Warfarin Warfarin No 1{table QD Warfarin Sodium 5 MG Sodium 5 MG t} Sodium 5 MG Lasix 20 MG Lasix 20 MG No 1{table QD Lasix 20 t} MG Metoprolol Metoprolol No 1{table QD Metoprolol Tartrate 25 Tartrate 25 t_with_ Tartrate MG MG food} 25 MG Centrum Centrum No QD Centrum Silver - Silver - Silver - Digoxin 250 Digoxin 250 No 1{table QD Digoxin MCG MCG t} 250 MCG Potassium Potassium No QD Potassium Chloride CR Chloride CR Chloride 10 MEQ 10 MEQ CR 10 MEQ Rosuvastati Rosuvastati No 1{table QD Rosuvastat n Calcium n Calcium t} in Calcium 20 MG 20 MG 20 MG Tamsulosin Tamsulosin No Tamsulosin HCl 0.4 MG HCl 0.4 MG HCl 0.4 MG Lisinopril- Lisinopril- No Lisinopril hydroCHLORO hydroCHLORO -hydroCHLO thiazide thiazide ROthiazide 20-25 MG 20-25 MG 20-25 MG Warfarin Warfarin No 1{table QD Warfarin Sodium 5 MG Sodium 5 MG t} Sodium 5 MG Lasix 20 MG Lasix 20 MG No 1{table QD Lasix 20 t} MG Tamsulosin Tamsulosin No Tamsulosin HCl 0.4 MG HCl 0.4 MG HCl 0.4 MG Centrum Centrum No QD Centrum Silver - Silver - Silver - Digoxin 250 Digoxin 250 No 1{table QD Digoxin MCG MCG t} 250 MCG Potassium Potassium No QD Potassium Chloride CR Chloride CR Chloride 10 MEQ 10 MEQ CR 10 MEQ Rosuvastati Rosuvastati No 1{table QD Rosuvastat n Calcium n Calcium t} in Calcium 20 MG 20 MG 20 MG Warfarin Warfarin No 1{table QD Warfarin Sodium 5 MG Sodium 5 MG t} Sodium 5 MG Metoprolol Metoprolol No 1{table QD Metoprolol Tartrate 25 Tartrate 25 t_with_ Tartrate MG MG food} 25 MG Lisinopril- Lisinopril- No Lisinopril hydroCHLORO hydroCHLORO -hydroCHLO thiazide thiazide ROthiazide 20-25 MG 20-25 MG 20-25 MG Lasix 20 MG Lasix 20 MG No 1{table QD Lasix 20 t} MG Warfarin Warfarin No 1{table QD Warfarin Sodium 5 MG Sodium 5 MG t} Sodium 5 MG Centrum Centrum No QD Centrum Silver - Silver - Silver - Lasix 20 MG Lasix 20 MG No 1{table QD Lasix 20 t} MG Digoxin 250 Digoxin 250 No 1{table QD Digoxin MCG MCG t} 250 MCG Rosuvastati Rosuvastati No 1{table QD Rosuvastat n Calcium n Calcium t} in Calcium 20 MG 20 MG 20 MG Tamsulosin Tamsulosin No Tamsulosin HCl 0.4 MG HCl 0.4 MG HCl 0.4 MG Metoprolol Metoprolol No 1{table QD Metoprolol Tartrate 25 Tartrate 25 t_with_ Tartrate MG MG food} 25 MG Potassium Potassium No QD Potassium Chloride CR Chloride CR Chloride 10 MEQ 10 MEQ CR 10 MEQ Lisinopril- Lisinopril- No Lisinopril hydroCHLORO hydroCHLORO -hydroCHLO thiazide thiazide ROthiazide 20-25 MG 20-25 MG 20-25 MG Potassium Potassium No QD Potassium Chloride CR Chloride CR Chloride 10 MEQ 10 MEQ CR 10 MEQ Digoxin 250 Digoxin 250 No 1{table QD Digoxin MCG MCG t} 250 MCG Centrum Centrum No QD Centrum Silver - Silver - Silver - Metoprolol Metoprolol No 1{table QD Metoprolol Tartrate 25 Tartrate 25 t_with_ Tartrate MG MG food} 25 MG Lasix 20 MG Lasix 20 MG No 1{table QD Lasix 20 t} MG Tamsulosin Tamsulosin No Tamsulosin HCl 0.4 MG HCl 0.4 MG HCl 0.4 MG Warfarin Warfarin No 1{table QD Warfarin Sodium 5 MG Sodium 5 MG t} Sodium 5 MG Lisinopril- Lisinopril- No Lisinopril hydroCHLORO hydroCHLORO -hydroCHLO thiazide thiazide ROthiazide 20-25 MG 20-25 MG 20-25 MG Rosuvastati Rosuvastati No 1{table QD Rosuvastat n Calcium n Calcium t} in Calcium 20 MG 20 MG 20 MG Potassium Potassium No QD Potassium Chloride CR Chloride CR Chloride 10 MEQ 10 MEQ CR 10 MEQ Digoxin 250 Digoxin 250 No 1{table QD Digoxin MCG MCG t} 250 MCG Centrum Centrum No QD Centrum Silver - Silver - Silver - Metoprolol Metoprolol No 1{table QD Metoprolol Tartrate 25 Tartrate 25 t_with_ Tartrate MG MG food} 25 MG Lasix 20 MG Lasix 20 MG No 1{table QD Lasix 20 t} MG Tamsulosin Tamsulosin No Tamsulosin HCl 0.4 MG HCl 0.4 MG HCl 0.4 MG Warfarin Warfarin No 1{table QD Warfarin Sodium 5 MG Sodium 5 MG t} Sodium 5 MG Lisinopril- Lisinopril- No Lisinopril hydroCHLORO hydroCHLORO -hydroCHLO thiazide thiazide ROthiazide 20-25 MG 20-25 MG 20-25 MG Rosuvastati Rosuvastati No 1{table QD Rosuvastat n Calcium n Calcium t} in Calcium 20 MG 20 MG 20 MG Potassium Potassium No QD Potassium Chloride CR Chloride CR Chloride 10 MEQ 10 MEQ CR 10 MEQ Digoxin 250 Digoxin 250 No 1{table QD Digoxin MCG MCG t} 250 MCG Centrum Centrum No QD Centrum Silver - Silver - Silver - Metoprolol Metoprolol No 1{table QD Metoprolol Tartrate 25 Tartrate 25 t_with_ Tartrate MG MG food} 25 MG Lasix 20 MG Lasix 20 MG No 1{table QD Lasix 20 t} MG Tamsulosin Tamsulosin No Tamsulosin HCl 0.4 MG HCl 0.4 MG HCl 0.4 MG Warfarin Warfarin No 1{table QD Warfarin Sodium 5 MG Sodium 5 MG t} Sodium 5 MG Lisinopril- Lisinopril- No Lisinopril hydroCHLORO hydroCHLORO -hydroCHLO thiazide thiazide ROthiazide 20-25 MG 20-25 MG 20-25 MG Rosuvastati Rosuvastati No 1{table QD Rosuvastat n Calcium n Calcium t} in Calcium 20 MG 20 MG 20 MG Warfarin Warfarin No 1{table QD Warfarin Sodium 5 MG Sodium 5 MG t} Sodium 5 MG Digoxin 250 Digoxin 250 No 1{table QD Digoxin MCG MCG t} 250 MCG Centrum Centrum No QD Centrum Silver - Silver - Silver - Lisinopril- Lisinopril- No Lisinopril hydroCHLORO hydroCHLORO -hydroCHLO thiazide thiazide ROthiazide 20-25 MG 20-25 MG 20-25 MG Lasix 20 MG Lasix 20 MG No 1{table QD Lasix 20 t} MG Potassium Potassium No QD Potassium Chloride CR Chloride CR Chloride 10 MEQ 10 MEQ CR 10 MEQ Rosuvastati Rosuvastati No 1{table QD Rosuvastat n Calcium n Calcium t} in Calcium 20 MG 20 MG 20 MG Metoprolol Metoprolol No 1{table QD Metoprolol Tartrate 25 Tartrate 25 t_with_ Tartrate MG MG food} 25 MG Digoxin 250 Digoxin 250 No 1{table QD Digoxin MCG MCG t} 250 MCG Metoprolol Metoprolol No Metoprolol Tartrate 25 Tartrate 25 Tartrate MG MG 25 MG Centrum Centrum No QD Centrum Silver - Silver - Silver - Tamsulosin Tamsulosin No Tamsulosin HCl 0.4 MG HCl 0.4 MG HCl 0.4 MG Omeprazole Omeprazole No QD Omeprazole 40 MG 40 MG 40 MG Xarelto 20 Xarelto 20 No 1{table QD Xarelto 20 MG MG t_with_ MG food} Rosuvastati Rosuvastati No 1{table QD Rosuvastat n Calcium n Calcium t} in Calcium 20 MG 20 MG 20 MG Lasix 20 MG Lasix 20 MG No 1{table QD Lasix 20 t} MG Lisinopril- Lisinopril- No Lisinopril hydroCHLORO hydroCHLORO -hydroCHLO thiazide thiazide ROthiazide 20-25 MG 20-25 MG 20-25 MG Potassium Potassium No QD Potassium Chloride CR Chloride CR Chloride 10 MEQ 10 MEQ CR 10 MEQ Ferrous Ferrous No QD Ferrous Gluconate Gluconate Gluconate 324 (38 Fe) 324 (38 Fe) 324 (38 MG MG Fe) MG Digoxin 250 Digoxin 250 No 1{table QD Digoxin MCG MCG t} 250 MCG Metoprolol Metoprolol No Metoprolol Tartrate 25 Tartrate 25 Tartrate MG MG 25 MG Centrum Centrum No QD Centrum Silver - Silver - Silver - Rosuvastati Rosuvastati No Rosuvastat n Calcium n Calcium in Calcium 20 MG 20 MG 20 MG Xarelto 20 Xarelto 20 No 1{table QD Xarelto 20 MG MG t_with_ MG food} Potassium Potassium No QD Potassium Chloride CR Chloride CR Chloride 10 MEQ 10 MEQ CR 10 MEQ Ferrous Ferrous No QD Ferrous Gluconate Gluconate Gluconate 324 (38 Fe) 324 (38 Fe) 324 (38 MG MG Fe) MG Lasix 20 MG Lasix 20 MG No 1{table QD Lasix 20 t} MG Lisinopril- Lisinopril- No Lisinopril hydroCHLORO hydroCHLORO -hydroCHLO thiazide thiazide ROthiazide 20-25 MG 20-25 MG 20-25 MG Tamsulosin Tamsulosin No Tamsulosin HCl 0.4 MG HCl 0.4 MG HCl 0.4 MG Omeprazole Omeprazole No QD Omeprazole 40 MG 40 MG 40 MG Digoxin 250 Digoxin 250 No 1{table QD Digoxin MCG MCG t} 250 MCG Zestoretic Zestoretic No 1{table QD Zestoretic 20-25 MG 20-25 MG t} 20-25 MG Pantoprazol Pantoprazol No Pantoprazo e Sodium 40 e Sodium 40 le Sodium MG MG 40 MG Rosuvastati Rosuvastati No 1{table QD Rosuvastat n Calcium n Calcium t} in Calcium 20 MG 20 MG 20 MG Metoprolol Metoprolol No 1.5{tab BID Metoprolol Tartrate 25 Tartrate 25 let_wit Tartrate MG MG h_food} 25 MG Tamsulosin Tamsulosin No 1{capsu QD Tamsulosin HCl 0.4 MG HCl 0.4 MG le} HCl 0.4 MG Lasix 20 MG Lasix 20 MG No 1{table QD Lasix 20 t} MG Centrum Centrum No QD Centrum Silver - Silver - Silver - Potassium Potassium No QD Potassium Chloride CR Chloride CR Chloride 10 MEQ 10 MEQ CR 10 MEQ Warfarin Warfarin No 1{table QD Warfarin Sodium 5 MG Sodium 5 MG t} Sodium 5 MG Zestoretic Zestoretic No 1{table QD Zestoretic 20-25 MG 20-25 MG t} 20-25 MG Warfarin Warfarin No 1{table QD Warfarin Sodium 5 MG Sodium 5 MG t} Sodium 5 MG Digoxin 250 Digoxin 250 No 1{table QD Digoxin MCG MCG t} 250 MCG Centrum Centrum No QD Centrum Silver - Silver - Silver - Potassium Potassium No QD Potassium Chloride CR Chloride CR Chloride 10 MEQ 10 MEQ CR 10 MEQ Metoprolol Metoprolol No QD Metoprolol Tartrate 25 Tartrate 25 Tartrate MG MG 25 MG Tamsulosin Tamsulosin No 1{capsu QD Tamsulosin HCl 0.4 MG HCl 0.4 MG le} HCl 0.4 MG Rosuvastati Rosuvastati No 1{table QD Rosuvastat n Calcium n Calcium t} in Calcium 20 MG 20 MG 20 MG Lasix 20 MG Lasix 20 MG No 1{table QD Lasix 20 t} MG Tamsulosin Tamsulosin Tamsulosin HCl 0.4 MG HCl 0.4 MG 08-24 HCl 0.4 MG 00:00 :00 Immunizations Ordered Immunization Filled Immunization Date Status Commen ts Source Name Name Moderna COVID-19 Moderna COVID-19 2021-01-10 Completed [facility] Vaccine Vaccine 10:31:00 - [facility] Moderna COVID-19 Moderna COVID-19 2021-01-10 Completed [facility] Vaccine Vaccine 10:31:00 - [facility] Moderna COVID-19 Moderna COVID-19 2021-01-10 Completed [facility] Vaccine Vaccine 10:31:00 - [facility] Moderna COVID-19 Moderna COVID-19 2021-01-10 Completed [facility] Vaccine Vaccine 10:31:00 - [facility] Moderna COVID-19 Moderna COVID-19 2021-01-10 Completed [facility] Vaccine Vaccine 10:31:00 - [facility] Moderna COVID-19 Moderna COVID-19 2021-01-10 Completed [facility] Vaccine Vaccine 10:31:00 - [facility] Moderna COVID-19 Moderna COVID-19 2021-01-10 Completed [facility] Vaccine Vaccine 10:31:00 - [facility] Moderna COVID-19 Moderna COVID-19 2021-01-10 Completed [facility] Vaccine Vaccine 10:31:00 - [facility] Moderna COVID-19 Moderna COVID-19 2021-01-10 Completed [facility] Vaccine Vaccine 10:31:00 [facility] Moderna COVID-19 Moderna COVID-19 2021-01-10 Completed [facility] Vaccine Vaccine 10:31:00 [facility] Moderna COVID-19 Moderna COVID-19 2021-01-10 Completed [facility] Vaccine Vaccine 10:31:00 - [facility] Moderna COVID-19 Moderna COVID-19 2021-01-10 Completed [facility] Vaccine Vaccine 10:31:00 [facility] Moderna COVID-19 Moderna COVID-19 2021-01-10 Completed [facility] Vaccine Vaccine 10:31:00 - [facility] Moderna COVID-19 Moderna COVID-19 2020-12-16 Completed [facility] Vaccine Vaccine 10:30:00 - [facility] Moderna COVID-19 Moderna COVID-19 2020-12-16 Completed [facility] Vaccine Vaccine 10:30:00 - [facility] Moderna COVID-19 Moderna COVID-19 2020-12-16 Completed [facility] Vaccine Vaccine 10:30:00 - [facility] Moderna COVID-19 Moderna COVID-19 2020-12-16 Completed [facility] Vaccine Vaccine 10:30:00 - [facility] Moderna COVID-19 Moderna COVID-19 2020-12-16 Completed [facility] Vaccine Vaccine 10:30:00 - [facility] Moderna COVID-19 Moderna COVID-19 2020-12-16 Completed [facility] Vaccine Vaccine 10:30:00 - [facility] Moderna COVID-19 Moderna COVID-19 2020-12-16 Completed [facility] Vaccine Vaccine 10:30:00 - [facility] Moderna COVID-19 Moderna COVID-19 2020-12-16 Completed [facility] Vaccine Vaccine 10:30:00 [facility] Moderna COVID-19 Moderna COVID-19 2020-12-16 Completed [facility] Vaccine Vaccine 10:30:00 - [facility] Moderna COVID-19 Moderna COVID-19 2020-12-16 Completed [facility] Vaccine Vaccine 10:30:00 - [facility] Moderna COVID-19 Moderna COVID-19 2020-12-16 Completed [facility] Vaccine Vaccine 10:30:00 [facility] Moderna COVID-19 Moderna COVID-19 2020-12-16 Completed [facility] Vaccine Vaccine 10:30:00 [facility] Moderna COVID-19 Moderna COVID-19 2020-12-16 Completed [facility] Vaccine Vaccine 10:30:00 [facility] FLUZONE HIGH DOSE FLUZONE HIGH DOSE 2020-06-30 Completed [facility] OVER 65 OVER 65 09:47:00 - [facility] FLUZONE HIGH DOSE FLUZONE HIGH DOSE 2020-06-30 Completed [facility] OVER 65 OVER 65 09:47:00 - [facility] FLUZONE HIGH DOSE FLUZONE HIGH DOSE 2020-06-30 Completed [facility] OVER 65 OVER 65 09:47:00 - [facility] FLUZONE HIGH DOSE FLUZONE HIGH DOSE 2020-06-30 Completed [facility] OVER 65 OVER 65 09:47:00 - [facility] FLUZONE HIGH DOSE FLUZONE HIGH DOSE 2020-06-30 Completed [facility] OVER 65 OVER 65 09:47:00 - [facility] FLUZONE HIGH DOSE FLUZONE HIGH DOSE 2020-06-30 Completed [facility] OVER 65 OVER 65 09:47:00 - [facility] FLUZONE HIGH DOSE FLUZONE HIGH DOSE 2020-06-30 Completed [facility] OVER 65 OVER 65 09:47:00 - [facility] FLUZONE HIGH DOSE FLUZONE HIGH DOSE 2020-06-30 Completed [facility] OVER 65 OVER 65 09:47:00 - [facility] FLUZONE HIGH DOSE FLUZONE HIGH DOSE 2020-06-30 Completed [facility] OVER 65 OVER 65 09:47:00 - [facility] FLUZONE HIGH DOSE FLUZONE HIGH DOSE 2020-06-30 Completed [facility] OVER 65 OVER 65 09:47:00 - [facility] FLUZONE HIGH DOSE FLUZONE HIGH DOSE 2020-06-30 Completed [facility] OVER 65 OVER 65 09:47:00 - [facility] FLUZONE HIGH DOSE FLUZONE HIGH DOSE 2020-06-30 Completed [facility] OVER 65 OVER 65 09:47:00 [facility] FLUZONE HIGH DOSE FLUZONE HIGH DOSE 2020-06-30 Completed [facility] OVER 65 OVER 65 09:47:00 [facility] Vital Signs Vital Name Observation Time Observation Value Comments Source height 2022-04-03 16:00:00 71 [in_i] [facility] weight 2022-04-03 16:00:00 149.4 [lb_av] [facility] temperature 2022-04-03 16:00:00 98.1 [degF] [facility] bmi 2022-04-03 16:00:00 20.83 kg/m2 [facility] oximetry 2022-04-03 16:00:00 98 % Common [facility] respiratory rate 2022-04-03 16:00:00 16 /min Comm on [facility] blood pressure 2022-04-03 16:00:00 150 mm[Hg] [facility] - systolic [facility] blood pressure 2022-04-03 16:00:00 78 mm[Hg] Common [facility] - diastolic [facility] height 2021-12-20 14:20:00 71 [in_i] Common S [facility] weight 2021-12-20 14:20:00 149.4 [lb_av] [facility] temperature 2021-12-20 14:20:00 97.3 [degF] [facility] bmi 2021-12-20 14:20:00 20.83 kg/m2 Common S [facility] respiratory rate 2021-12-20 14:20:00 16 /min Comm on [facility] blood pressure 2021-12-20 14:20:00 122 mm[Hg] Common [facility] - systolic [facility] blood pressure 2021-12-20 14:20:00 54 mm[Hg] [facility] - diastolic [facility] height 2021-12-20 13:40:00 71 [in_i] [facility] weight 2021-12-20 13:40:00 149.4 [lb_av] [facility] temperature 2021-12-20 13:40:00 97.3 [degF] [facility] bmi 2021-12-20 13:40:00 20.83 kg/m2 Common [facility] blood pressure 2021-12-20 13:40:00 122 mm[Hg] [facility] - systolic [facility] blood pressure 2021-12-20 13:40:00 54 mm[Hg] [facility] - diastolic [facility] height 2021-08-29 08:40:00 71 [in_i] [facility] - [facility] weight 2021-08-29 08:40:00 154 [lb_av] [facility] temperature 2021-08-29 08:40:00 98.8 [degF] [facility] - [facility] bmi 2021-08-29 08:40:00 21.48 kg/m2 Common S [facility] oximetry 2021-08-29 08:40:00 99 % [facility] respiratory rate 2021-08-29 08:40:00 16 /min Comm on [facility] blood pressure 2021-08-29 08:40:00 134 mm[Hg] Common [facility] - systolic [facility] blood pressure 2021-08-29 08:40:00 66 mm[Hg] [facility] - diastolic [facility] bmi 2021-06-01 15:00:00 21.34 kg/m2 [facility] S [facility] oximetry 2021-06-01 15:00:00 95 % [facility] S [facility] respiratory rate 2021-06-01 15:00:00 18 /min Comm on [facility] blood pressure 2021-06-01 15:00:00 124 mm[Hg] [facility] - systolic [facility] blood pressure 2021-06-01 15:00:00 72 mm[Hg] [facility] - diastolic [facility] height 2021-06-01 15:00:00 71 [in_i] Common S [facility] weight 2021-06-01 15:00:00 153.0 [lb_av] Common [facility] temperature 2021-06-01 15:00:00 97.1 [degF] [facility] Systolic blood 2022-06-27 15:16:00 145 mm[Hg] [facility] pressure Diastolic blood 2022-06-27 15:16:00 62 mm[Hg] [facility] pressure Heart rate 2022-06-27 15:16:00 103 /min [facility] Body height 2022-06-27 15:16:[address] [facility] Body weight 2022-06-27 15:16:[address] [facility] BMI 2022-06-27 15:16:00 21.34 kg/m2 [facility] Respiratory rate 2022-06-20 15:05:00 20 /min [facility] Oxygen saturation in 2022-06-20 15:05:00 96 /min [facility] Arterial blood by Pulse oximetry Body temperature 2022-06-20 12:12:00 36.33 Jaquelin [facility] Procedures Procedure Date / Time Performing Clinician Source Performed ECG 12-LEAD 2022-06-20 15:41:31 Tobias Williamson spital Nick ECHOCARDIOGRAM 2022-06-20 15:20:12 Tobias Williamson spital TRANSESOPHAGEAL W DOPPLER Nick COLORFLOW ESTIMATED GFR 2022-06-20 12:42:00 Tobias Williamson spital Nick POC PANEL 2022-06-20 12:42:00 Tobias Williamson spital Nick PROTHROMBIN TIME WITH INR 2022-06-20 12:36:00 Tobias Williamson [facility] HC COMPLETE BLD COUNT 2022-06-20 12:35:00 Tobias Williamson [facility] W/AUTO DIFF Nick CV PACEMAKER DEFIB ILR 2022-06-20 00:00:00 Tobias Williamson [facility] INTERROGATION [facility] HC COMPLETE BLD COUNT 2022-04-25 08:50:00 Tobias Williamson [facility] W/AUTO DIFF Nick BASIC METABOLIC PANEL 2022-04-25 08:50:00 Tobias Williamson [facility] Nick ESTIMATED GFR 2022-04-25 08:50:00 Tobias Williamson spital Nick BASIC METABOLIC PANEL 2022-04-25 02:56:00 Mi Lao [facility] MAGNESIUM LEVEL 2022-04-25 02:56:00 [facility] PHOSPHORUS LEVEL 2022-04-25 02:56:00 [facility] ESTIMATED GFR 2022-04-25 02:56:00 [facility] XR CHEST 1 VW PORTABLE 2022-04-24 23:20:09 Marcelo [facility] Felipe ECG PRE/POST OP 2022-04-24 22:37:21 Marcelo [facility] ospital Felipe EP CARDIOVERSION 2022-04-24 22:09:39 Tobias Williamson ospital Nick CV LEFT ATRIAL APPENDAGE 2022-04-24 22:09:39 Tobias Williamson [facility] CLOSURE Nick ARTERIAL LINE 2022-04-24 21:31:42 [facility]EN 2022-04-24 15:31:00 Tobias Williamson spital Nick ECG PRE/POST OP 2022-04-24 15:13:52 [facility] Nick ECG 12-LEAD 2022-04-18 16:01:50 Tobias Williamson spital Nick ECHOCARDIOGRAM 2022-04-18 15:40:17 Tobias Williamson spital TRANSESOPHAGEAL W DOPPLER [facility] COLORFLOW CV PACEMAKER DEFIB ILR 2022-04-18 00:00:00 [facility] BASIC METABOLIC PANEL 2022-04-13 13:53:00 Tobias Williamson [facility] PROTHROMBIN TIME WITH INR 2022-04-13 13:53:00 Tobias Williamson [facility] CBC WITH PLATELET AND 2022-04-13 13:53:00 Tobias Williamson [facility] DIFFERENTIAL [facility] CV CTA PRE AFIB PULM VEIN 2022-01-16 15:12:47 Tobias Williamson [facility] MAPPING [facility] POC CREATININE 2022-01-16 14:38:00 Tobias [facility] Nick ESTIMATED GFR 2022-01-16 14:38:00 Tobias Williamson Ho spital Nick TTE COMPLETE, W CONTRAST, 2022-01-13 17:42:18 Mega James [facility] W DOPPLER ([id number]) HC CT HEART W CONTRA 3D 2021-11-07 17:44:44 Tobias Williamson [facility] IMAGE Nick POC CREATININE 2021-11-07 17:10:00 Tobias Williamson spital Ncik ESTIMATED GFR 2021-11-07 17:10:00 Tobias Williamson spital Nick TYPE AND SCREEN 2021-09-05 16:18:00 Tobias Williamson spital Nick PROTHROMBIN TIME WITH INR 2021-09-05 16:18:00 Tobias Williamson [facility] Nick ECG PRE/POST OP 2021-09-05 15:41:53 Tobias Williamson spital Nick HC CT HEART W CONTRA 3D 2021-09-01 21:39:46 Tobias Williamson [facility] IMAGE Nick POC CREATININE 2021-09-01 20:27:00 Tobias iWlliamson spital Nick ESTIMATED GFR 2021-09-01 20:27:00 Tobias Williamson spital Nick HC COMPLETE BLD COUNT 2021-09-01 19:24:00 Tobias Williamson [facility] W/AUTO DIFF Nick BASIC METABOLIC PANEL 2021-09-01 19:24:00 [facility] Nick PROTHROMBIN TIME WITH INR 2021-09-01 19:24:00 Tobias Williamson [facility] Nick ESTIMATED GFR 2021-09-01 19:24:00 [facility]-19 QUALITATIVE 2021-09-01 19:05:00 Tobias Williamson [facility] RT-PCR Nick PROTHROMBIN TIME WITH INR 2021-08-01 14:04:00 Mega James [facility] Plan of Care Planned Activity Planned Date Details Comments Source Future Scheduled 2022-07-06 HEPATITIS B VACCINES [facility] Test 10:41:23 (1 of 3 - 3-dose series) [code = HEPATITIS B VACCINES (1 of 3 - 3-dose series)] Future Scheduled 2022-07-06 Hepatitis C screening [facility] Test 10:41:23 (procedure) [code = 902287317] Future Scheduled 2022-07-06 COLONOSCOPY SCREENING [facility] Test 10:41:23 [code = COLONOSCOPY SCREENING] Future Scheduled 2022-07-06 SHINGLES VACCINES (1 [facility] Test 10:41:23 of 2) [code = SHINGLES VACCINES (1 of 2)] Future Scheduled 2022-07-06 65+ PNEUMOCOCCAL [facility] Test 10:41:23 VACCINE (2 - PCV) [code = 65+ PNEUMOCOCCAL VACCINE (2 - PCV)] Future Scheduled 2022-07-06 INFLUENZA VACCINE [facility] Test 10:41:23 [code = INFLUENZA VACCINE] Future Scheduled 2022-07-06 COVID-19 VACCINE (4 - [facility] Test 10:41:23 Booster for Moderna series) [code = COVID-19 VACCINE (4 - Booster for Moderna series)] Medication 2022-07-25 aspirin (ECOTRIN) 81 [facility] 00:00:00 MG enteric coated tablet [code = 073451] Encounters Start End Encounter Admission Attending Care Care Encounter Source Date/Time Date/Time Type Type Clinicians Facility Department ID 2022-07-04 Outpatient [place], [facility] [id number] Common 08:33:01 Naya 52389 [facility] 2022-03-30 [facility] [place], [facility] [id number] Common 10:41:02 Naya 32838 [facility] 2021-10-19 Outpatient [place], [facility] [id number] Common 13:47:49 Naya 28426 [facility] 2021-10-19 Outpatient [place], [facility] [id number] Common 13:42:53 Naya 04864 [facility] 2021-10-19 Outpatient [place], [facility] [id number] Common 12:22:13 Naya 83765 [facility] 2021-10-19 Outpatient [place], [facility] [id number] Common 11:30:00 Naya [id number] [facility] 2021-10-19 Outpatient [place], [facility] [id number] Common 11:29:52 Naya 15011 [facility] 2021-10-19 Outpatient [place], [facility] [id number] Common 11:29:32 Naya 81344 [facility] 2021-10-19 Outpatient [place], [facility] [id number] Common 10:58:08 Naya 67901 [facility] 2022-07-04 2022-07-04 (TEL) [facility] [id number] [facility] 00:00:00 00:00:00 [facility] 2022-06-27 2022-06-27 Office Jacob, 1.2.840.1 [id number] Methodi 09:30:00 15:02:01 Visit Mega Francisco50.1.[address] 3.430.2.7 Hospit a .3.288168 l .8 2022-06-27 2022-06-27 [facility] [id number] [place] 00:00:00 00:00:00 MEGA Magana7 Method i 2022-06-27 2022-06-27 Travel 1.2.840.1 1.2.733.265 [id number] Methodi 00:00:00 00:00:[address] 3.430.2.7 0.2.7.3.698 spita .3.567327 084.8 l .8 2022-06-20 2022-06-20 Office [facility] 1.2.840.1 [id number] Methodi 11:30:00 12:41:35 Visit Tobias 63970.1.[address] Nick 3.430.2.7 Hospit a .3.928143 l .8 2022-06-20 2022-06-20 [facility] 1.2.840.1 [id number] Methodi 06:37:00 10:20:00 Encounter Tobias 20492.1.[address] Nick 3.430.2.7 Hospit a .3.065476 l .8 2022-06-20 2022-06-20 Anesthesia Miladys Crooks 1.2.840. 1 [id number] Methodi 08:18:00 09:39:00 Event EfrainTien Trip 89550.1.[address] 3.430.2.7 Hospit a .3.612143 l .8 2022-06-20 2022-06-20 Outpatient [facility] 021 [id number] [place] 00:00:00 00:00:00 TOBIAS 389 Method i 2022-06-20 2022-06-20 Outpatient [facility] [id number] [place] 00:00:00 00:00:[address] TOBIAS [address] 2022-06-20 2022-06-20 Travel 1.2.840.1 1.2.822.690 [id number] [id number] Methodi 00:00:00 00:00:[address] 3.430.2.7 0.2.7.3.698 Ho spita .3.087529 084.8 l .8 2022-05-31 2022-05-31 Refjessica James 1.2.840.1 [id number] Methodi 00:00:00 00:00:00 Mega Dominique 02775.1.[address] 3.430.2.7 Hospit a .3.223864 l .8 2022-04-24 2022-04-25 [facility] 1.2.840.1 [id number] 21 [id number] Methodi 10:04:00 09:51:00 Encounter Tobias 19119.1.[address] Nick 3.430.2.7 Hospit a .3.312665 l .8 2022-04-24 2022-04-25 Inpatient [facility] [id number] [id number] [place] 00:00:00 00:00:[address] TOBIAS [address] 2022-04-24 2022-04-24 Anesthesia Sagar, 1.2.840.1 [id number] Methodi 15:17:00 17:16:00 [address] Teetee 13287.1.[address] L. 3.430.2.7 Hospit a .3.048132 l .8 2022-04-24 2022-04-24 Surgery [facility], 1.2.840.1 [id number] [id number] Methodi 12:50:00 15:35:[address] Nick 3.430.2.7 Hospit a .3.711759 l .8 2022-04-19 2022-04-19 Orders Abhay, 1.2.840.1 [id number] Methodi 00:00:00 00:00:00 Only Denise 22467.1.[address] 3.430.2.7 Hospit a .3.779644 l .8 2022-04-18 2022-04-18 Office [facility], 1.2.840.1 [id number] Methodi 11:00:00 11:15:00 Visit Tobias 74019.1.[address] Nick 3.430.2.7 Hospit a .3.413197 l .8 2022-04-18 2022-04-18 Hospital [facility], 1.2.840.1 [id number] Methodi 06:35:00 10:41:00 Encounter Tobias 63608.1.[address] Nick 3.430.2.7 Hospit a .3.966022 l .8 2022-04-18 2022-04-18 Anesthesia [facility], 1.2.840.1 [id number] 21 [id number] Methodi 09:24:00 09:46:00 Event Miladys 81850.1.[address] Ahmad 3.430.2.7 Hospit a .3.591884 l .8 2022-04-18 2022-04-18 Outpatient [facility] 021 [id number] [place] 00:00:00 00:00:00 TOBIAS [address] 2022-04-18 2022-04-18 Telephone Walker, 1.2.840.1 [id number] Methodi 00:00:00 00:00:[address] 3.430.2.7 Hospit a .3.164935 l .8 2022-04-18 2022-04-18 Orders Walker, 1.2.840.1 [id number] Methodi 00:00:00 00:00:00 Only Darnysha 85456.1.[address] 3.430.2.7 Hospit a .3.717516 l .8 2022-04-18 2022-04-18 Travel 1.2.840.1 1.2.147.398 2325 [id number] Methodi 00:00:00 00:00:[address] 3.430.2.7 0.2.7.3.698 Ho spita .3.595803 084.8 l .8 2022-04-18 2022-04-18 [facility]patient [facility] [id number] [place] 00:00:00 00:00:00 TOBIAS [address] 2022-04-13 2022-04-13 Orders Clay, 1.2.840.1 [id number] Methodi 00:00:00 00:00:00 Only Tobias 86396.1.[address] Inck 3.430.2.7 Hospit a .3.987491 l .8 2022-04-13 2022-04-13 Telephone Abhay, 1.2.840.1 [id number] Methodi 00:00:00 00:00:[address] 3.430.2.7 Hospit a .3.895538 l .8 2022-04-03 2022-04-03 [facility] [id number] Co mmon 00:00:00 00:00:00 VISIT Spirit ESTAB PT - CHI LEVEL 4 [facility] 2022-03-15 2022-03-15 Orders Abhay, 1.2.840.1 [id number] Methodi 00:00:00 00:00:00 Only Darnysha 47891.1.[address] 3.430.2.7 Hospit a .3.511651 l .8 2022-03-14 2022-03-14 Telephone Walker, 1.2.840.1 [id number] Methodi 00:00:00 00:00:[address] 3.430.2.7 Hospit a .3.356990 l .8 2022-03-14 2022-03-14 Telephone Walker, 1.2.840.1 [id number] Methodi 00:00:00 00:00:[address] 3.430.2.7 Hospit a .3.228820 l .8 2022-03-14 2022-03-14 Telephone Walker, 1.2.840.1 [id number] Methodi 00:00:00 00:00:[address] 3.430.2.7 Hospit a .3.304789 l .8 2022-03-14 2022-03-14 Orders Walker, 1.2.840.1 [id number] Methodi 00:00:00 00:00:00 Only Darnysha 72540.1.[address] 3.430.2.7 Hospit a .3.839188 l .8 2022-02-16 2022-02-16 (TEL) [facility] [id number] Co mmon 00:00:00 00:00:00 [facility] 2022-02-10 2022-02-10 Refill Clay, 1.2.840.1 [id number] Methodi 00:00:00 00:00:[address] Nick 3.430.2.7 Hospit a .3.749454 l .8 2022-01-30 2022-01-30 Refill Ki, 1.2.840.1 [id number] Methodi 00:00:00 00:00:[address] Nroeen 3.430.2.7 Hospit a .3.599164 l .8 2022-01-24 2022-01-24 [facility], 1.2.840.1 [id number] Methodi 15:30:00 15:53:49 ne Tobias 46476.1.[address] Nick 3.430.2.7 Hospit a .3.504852 l .8 2022-01-24 2022-01-24 Outpatient [facility] [id number] [place] 00:00:00 00:00:[address] TOBIAS [address] 2022-01-17 2022-01-17 [facility] 1.2.840.1 [id number] Methodi 00:00:00 00:00:00 Mega Dominique 51538.1.[address] 3.430.2.7 Hospit a .3.626784 l .8 2022-01-16 2022-01-16 [facility] 1.2.840.1 [id number] Methodi 09:20:20 23:59:00 Encounter Tobias 00041.1.[address] Nick 3.430.2.7 Hospit a .3.592628 l .8 2022-01-16 2022-01-16 Travel 1.2.840.1 1.2.432.743 [id number] Methodi 00:00:00 00:00:[address] 3.430.2.7 0.2.7.3.698 spita .3.592019 084.8 l .8 2022-01-16 2022-01-16 Outpatient [facility] [id number] [place] 00:00:00 00:00:[address] TOBIAS [address] 2022-01-13 2022-01-13 [facility] [id number] [place] 00:00:00 00:00:00 MEGA [address] 2022-01-13 2022-01-13 Travel 1.2.840.1 1.2.525.249 2772 [id number] Methodi 00:00:00 00:00:[address] 3.430.2.7 0.2.7.3.698 Ho spita .3.601733 084.8 l .8 2022-01-05 2022-01-05 Travel 1.2.840.1 1.2.863.910 4796 [id number] Methodi 00:00:00 00:00:[address] 3.430.2.7 0.2.7.3.698 Ho spita .3.727594 084.8 l .8 2022-01-04 2022-01-04 Orders Clay, 1.2.840.1 [id number] Methodi 00:00:00 00:00:00 Only Tobias 35373.1.[address] Nick 3.430.2.7 Hospit a .3.765096 l .8 2021-12-20 2021-12-20 Office Jacob 1.2.840.1 [id number] Methodi 09:15:00 15:35:09 Visit Mega Dominique 15229.1.[address] 3.430.2.7 Hospit a .3.311517 l .8 2021-12-20 2021-12-20 Outpatient [facility] [id number] [place] 00:00:00 00:00:00 MEGA [address] 2021-12-20 2021-12-20 [facility] [id number] Co mmon 00:00:00 00:00:00 VISIT Spirit ESTAB PT - CHI LEVEL 4 [facility] 2021-12-20 2021-12-20 [facility] [id number] Common 00:00:00 00:00:00 MCR Spirit WELLNESS - CHI VISIT [facility] 2021-12-20 2021-12-20 Travel 1.2.840.1 1.2.606.461 [id number] Methodi 00:00:00 00:00:[address] 3.430.2.7 0.2.7.3.698 Ho spita .3.183039 084.8 l .8 2021-12-18 2021-12-18 Refill Jacob, 1.2.840.1 [id number] Methodi 00:00:00 00:00:00 Mega Dominique 17718.1.[address] 3.430.2.7 Hospit a .3.361877 l .8 2021-12-12 2021-12-12 Telephone Brice, 1.2.840.1 [id number] Methodi 00:00:00 00:00:[address] 3.430.2.7 Hospit a .3.988587 l .8 2021-12-09 2021-12-09 (TEL) [facility] [id number] Co mmon 00:00:00 00:00:00 [facility] 2021-11-20 2021-11-20 Refjessica aJmes, 1.2.840.1 [id number] Methodi 00:00:00 00:00:00 Mega Dominique 8[address]01.1.[address] 3.430.2.7 Hospit a .3.716886 l .8 2021-11-07 2021-11-07 [facility] 2100 [id number] [place] 00:00:00 00:00:[address] [facility] 2021-11-07 2021-11-07 Travel 1.2.840.1 1.2.357.381 4231 268587 Methodi 00:00:00 00:00:[address] 3.430.2.7 0.2.7.3.698 Ho spita .3.918592 084.8 l .8 2021-10-18 2021-10-18 (TEL) STLMLC STLMLC [id number] Co mmon 00:00:00 00:00:00 [facility] 2021-09-29 2021-09-29 Orders Toribio, 1.2.840.1 [id number] 74248 Methodi 00:00:00 00:00:00 [place] [address] 3.430.2.7 Hospit a .3.061586 l .8 2021-09-26 2021-09-26 Travel 1.2.840.1 1.2.150.498 2326 173425 Methodi 00:00:00 00:00:[address] 3.430.2.7 0.2.7.3.698 Ho spita .3.876706 084.8 l .8 2021-09-26 2021-09-26 Orders Toribio, 1.2.840.1 [id number] 59595 Methodi 00:00:00 00:00:00 [place] [address].1.[address] 3.430.2.7 Hospit a .3.597515 l .8 2021-08-30 2021-09-22 [facility] 1.2.840.1 [id number] 2 [id number] Methodi 16:00:00 14:33:05 Consult Tobias 08188.1.[address] Nick 3.430.2.7 Hospit a .3.818956 l .8 2021-08-30 2021-09-22 [facility] 2100 [id number] [place] 00:00:00 00:00:00 TOBIAS [address] 2021-09-09 2021-09-09 (TEL) [facility] [id number] [place] 00:00:00 00:00:00 [facility] 2021-09-06 2021-09-06 (TEL) STLMLC STLMLC [id number] [place] m[place] 00:00:00 00:00:00 [facility] 2021-09-05 2021-09-05 [facility] 1.2.840.1 [id number] Methodi 09:12:00 12:54:00 Encounter Tobias 96171.1.[address] Nick 3.430.2.7 Hospit a .3.522604 l .8 2021-09-05 2021-09-[address] [id number] [place] 00:00:00 00:00:00 TOBIAS [address] 2021-09-05 2021-09-05 Documentat Drew, 1.2.840.1 [id number] Methodi 00:00:00 00:00:00 ion Erin Vasquez 04068.1.[address] 3.430.2.7 Hospit a .3.971916 l .8 2021-09-05 2021-09-05 [facility] Clay, 1.2.840.1 [id number] Methodi 00:00:00 00:00:00 Only Tobias 92552.1.[address] Nick 3.430.2.7 Hospit a .3.289543 l .8 2021-09-05 2021-09-05 Travel 1.2.840.1 1.2.535.396 3221 [id number] Methodi 00:00:00 00:00:[address] 3.430.2.7 0.2.7.3.698 Ho spita .3.695853 084.8 l .8 2021-09-01 2021-09-01 Lab Clay, 1.2.840.1 [id number] 791 [id number] Methodi 15:30:00 15:45:00 Tobias 52663.1.1 584 [facility] 3.430.2.7 Hospit a .3.280413 l .8 2021-09-01 2021-09-01 [facility] 2099 [id number] [place] 00:00:00 00:00:00 TOBIAS 584 Method i 2021-09-01 2021-09-01 [facility] 2099 [id number] [place] 00:00:00 00:00:00 TOBIAS [address] 2021-09-01 2021-09-01 Telephone Genaro 1.2.840.1 [id number] [id number] Methodi 00:00:00 00:00:[address] 3.430.2.7 Hospit a .3.248120 l .8 2021-09-01 2021-09-01 Travel 1.2.840.1 1.2.832.894 7843 116162 Methodi 00:00:00 00:00:[address] 3.430.2.7 0.2.7.3.698 Ho spita .3.474593 084.8 l .8 2021-08-31 2021-08-31 Orders Toribio, 1.2.840.1 [id number] Methodi 00:00:00 00:00:00 [place] [address].1.[address] 3.430.2.7 Hospit a .3.242619 l .8 2021-08-30 2021-08-30 Travel 1.2.840.1 1.2.624.569 4485 [id number] Methodi 00:00:00 00:00:[address] 3.430.2.7 0.2.7.3.698 Ho spita .3.626992 084.8 l .8 2021-08-30 2021-08-30 Orders Toribio, 1.2.840.1 [id number] Methodi 00:00:00 00:00:00 [place] [address].1.[address] 3.430.2.7 Hospit a .3.464604 l .8 2021-08-29 2021-08-29 OFFICE STLMLC STLMLC [id number] [place] m[place] 00:00:00 00:00:00 VISIT Spirit ESTAB PT - CHI LEVEL 4 [facility] 2021-08-26 2021-08-26 Travel 1.2.840.1 1.2.336.490 4372 [id number] Methodi 00:00:00 00:00:[address] 3.430.2.7 0.2.7.3.698 Ho spita .3.858351 084.8 l .8 2021-08-02 2021-08-02 Telephone Genaro, Maryuri.2.840.1 [id number] Methodi 00:00:00 00:00:[address] 3.430.2.7 Hospit a .3.959181 l .8 2021-06-14 2021-06-14 Outpatient JACOB [facility] [id number] [place] 00:00:00 00:00:00 MEGA [address] 2021-06-14 2021-06-14 Outpatient CLAY [facility] [id number] [place] 00:00:00 00:00:00 TOBIAS [address] 2021-06-01 2021-06-01 OFFICE STLMLC STLMLC [id number] [place] m[place] 00:00:00 00:00:00 VISIT [facility] LEVEL 4 [facility] 2021-05-31 2021-05-31 Outpatient JACOB [facility] [id number] [place] 00:00:00 00:00:00 MEGA [address] 2021-05-20 2021-05-20 Outpatient MARK ORTEGA [facility] [id number] [place] 00:00:00 00:00:[address] 2021-05-20 2021-05-20 Outpatient MARK ORTEGA [facility] [id number] [place] 00:00:00 00:00:[address] 2021-05-17 2021-05-17 (TEL) STLMLC STLMLC [id number] Co mmon 00:00:00 00:00:00 [facility] 2021-04-07 2021-04-07 Outpatient JACOB [facility] [id number] [place] 00:00:00 00:00:00 MEGA [address] 2021-03-25 2021-03-25 Outpatient STLMLC STLMLC [id number] [facility] 00:00:00 00:00:00 [facility] 2021-03-15 2021-03-15 Outpatient CLAY [facility] [id number] [place] 00:00:00 00:00:00 TOBIAS [address] 2021-03-03 2021-03-03 Outpatient STLMLC STLMLC [id number] [place] 00:00:00 00:00:00 [facility] 2021-02-09 2021-02-09 Outpatient STLMLC STLMLC [id number] [place] 00:00:00 00:00:00 [facility] 2020-12-27 2020-12-27 Outpatient STLMLC STLMLC [id number] [place] 00:00:00 00:00:00 [facility] 2020-12-07 2020-12-07 Outpatient CLAY, [facility] [id number] [place] 00:00:00 00:00:00 TOBIAS [address] 2020-12-07 2020-12-07 Outpatient STLMLC STLMLC [id number] [place] 00:00:00 00:00:00 [facility] 2020-12-01 2020-12-01 Outpatient STLMLC STLMLC [id number] [place] 00:00:00 00:00:00 [facility] 2020-11-30 2020-11-30 Outpatient JACOB [facility] [id number] [place] [address] 00:00:00 00:00:00 MEGA [address] 2020-10-19 2020-10-19 Outpatient STLMLC STLMLC [id number] [place] 00:00:00 00:00:00 [facility] 2020-10-12 2020-10-12 Outpatient CLAY [facility] [id number] [place] 00:00:00 00:00:00 TOBIAS [address] 2020-10-04 2020-10-04 Outpatient STLMLC STLMLC [id number] [place] 00:00:00 00:00:00 [facility] 2020-09-27 2020-09-[address] [facility] [id number] [place] 00:00:00 00:00:00 TOBIAS [address] 2020-09-23 2020-09-23 Outpatient CLAY [facility] 2100 [id number] [place] 00:00:00 00:00:00 TOBIAS [address] 2020-08-31 2020-08-31 Outpatient SCHRAMUMANN, [facility] [id number] [place] 00:00:00 00:00:00 TOBIAS [address] 2020-08-24 2020-08-24 Outpatient JAMES, [facility] [id number] [place] 00:00:00 00:00:00 MEGA [address] 2020-08-16 2020-08-16 Outpatient JAMES, [facility] [id number] [place] 00:00:00 00:00:00 MEGA [address] 2020-07-06 2020-07-06 Outpatient SCHTATIANA, [facility] [id number] [place] 00:00:00 00:00:00 TOBISA [address] 2020-06-30 2020-06-30 Outpatient STLMLC STLMLC [id number] [facility] 00:00:00 00:00:00 [facility] 2020-06-15 2020-06-15 Outpatient JAMES, [facility] [id number] [place] 00:00:00 00:00:00 MEGA [address] 2020-05-12 2020-05-12 Outpatient JAMES, [place] [id number] [place] 00:00:00 00:00:00 MEGA [address] 2020-05-10 2020-05-10 Out[facility] [id number] [place] 08:00:00 08:00:00 [facility] 2020-05-07 2020-05-07 Outpatient JAMES, [facility] [id number] [place] 00:00:00 00:00:00 MEGA [address] 2020-04-29 2020-04-30 Outpatient JACOB, [facility] [id number] [place] 00:00:00 00:00:00 MEGA [address] 2020-04-27 2020-04-27 Outpatient [facility] [id number] [place] 00:00:00 00:00:[address] 2020-04-27 2020-04-27 Outpatient JACOB, [facility] [id number] 570 [place] 00:00:00 00:00:00 MEGA [address] 2020-04-26 2020-04-26 Outpatient JACOB, [facility] [id number] [place] 00:00:00 00:00:00 MEGA [address] 2020-04-13 2020-04-13 Outpatient JACOB [facility] [id number] [place] 00:00:00 00:00:00 MEGA [address] 2020-04-08 2020-04-08 Outpatient JACOB [facility] [id number] [place] 00:00:00 00:00:00 MEGA [address] 2020-04-06 2020-04-06 Outpatient JACOB [facility] [id number] [place] 00:00:00 00:00:00 MEGA [address] 2020-04-06 2020-04-06 Outpatient JACOB [facility] [id number] [place] 00:00:00 00:00:00 MEGA [address] 2020-04-01 2020-04-01 Out[facility] [id number] [place] 13:43:00 13:43:[address] [facility] 2020-03-30 2020-03-30 Outpatient [facility] [id number] [place] 08:00:00 08:00:[address] [facility] 2020-01-06 2020-01-06 Outpatient [facility] [id number] [place] 16:36:00 16:36:[address] [facility] 2019-09-29 2019-09-29 Outpatient [facility] [id number] [place] 09:00:00 09:00:[address] [facility] Results Test Description Test Time Test Comments Results Result Comments Source ECG 12 lead 2022-06-20 22:51:26 Test Item Value Reference Range Interpretation Comme nts Ventricular rate (test code = 253) Atrial rate (test code = 255) QRSD interval (test code = 260) QT interval (test code = 264) QTC interval (test code = 265) QRS axis 1 (test code = 268) T wave axis (test code = 270) EKG impression (test code = 273) Demand pacemaker, interpretation i s based on intrinsic rhythm-Possible Atrial fibrillation with occasional and consecutive premature ventricular complexes-Right bundle branch block-Abnormal ECG-In automated comparison with ECG of 24-APR-2022 17:37,-Wide QRS rhythm has replaced Electronic ventricular pacemaker- [facility] [id number] 12:49:01 Test Item Value Reference Range Interpretation Comments POC sodium (test code = 128 mmol/L 135-148 L 2947-0) POC potassium (test 3.9 mmol/L 3.5-5.0 code = 6298-4) POC chloride (test code 91 mmol/L 99-109 L = 2069-3) POC CO2 (test code = 24 mmol/L 24-31 08177-5) POC glucose (test code 108 mg/dL 65-99 H = 2339-0) POC BUN (test code = 11 mg/dL 8-24 6299-2) POC creatinine (test 1.2 mg/dl 0.7-1.2 code = 07110-0) POC hematocrit (test 40 % 41-51 L code = 4544-3) POC anion gap (test 18 mmol/L 8-20 Research And Development Scientist Name: code = 8225574) Nellie Mccormack Etta ID: [id number] Lab Interpretation Abnormal (test code = 06225-5) [id number] 12:49:00 Test Item Value Reference Range Interpretation Comments Estimated GFR (test mL/min/1.73 m2 A Joe dagobertodania Units code = 71386-8) Interpretati onG1 >=90 Normal or highG 2 60-89 Mildly decrease dG3a 45-59 Mildly to moderately decr onhqpP1m 30-44 Moderatel y to severely decrea sedG4 15-29 Severely decreasedG5 <15 Kidney failureThe eGFR was calculated fei serna the Chronic Kidney Disease Epidemiology Collaboration ( CKD-EPI) equation. Interpretation is based on recommendati ons of the National Ki dney Foundation-Kidn ey Disease Outcome s Quality Initiat joanna (NKF-KDOQI) pub lished in 2013. Lab Interpretation Abnormal (test code = 80707-7) [facility] Pre/Post [id number] 03:44:36 Test Item Value Reference Range Interpretation Comments Ventricular rate (test code = 253) Atrial rate (test code = 255) QRSD interval (test code = 260) QT interval (test code = 264) QTC interval (test code = 265) P axis 1 (test code = 267) QRS axis 1 (test code = 268) T wave axis (test code = 270) EKG impression (test AV dual-paced rhythm code = 273) with frequent ventricular-paced complexes-Abnormal ECG-In automated comparison with ECG of 24-APR-2022 17:36,-premature ventricular complexes are no longer present- [facility] [id number] 14:42:00 Test Item Value Reference Range Interpretation Comments POC creatinine (test 1.3 mg/dl 0.7-1.2 H Operato r Name: code = 20975-2) Oksana Kapadia ID: [id number] Lab Interpretation (test Abnormal code = 51789-4) [facility] [id number] 22:50:44 Test Item Value Reference Range Interpretation Comments Interpretation (test Negative results do code = 2763769) not preclude 2019-nCoV infection and should not be used as the sole basis for treatment or other patient management decisions. Negative results must be combined with clinical observations, patient history, and epidemiological information. 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 is employed in a healthcare setting (test code = 89502-1) Whether the patient has symptoms related to condition of interest (test code = 06428-3) Patient was hospitalized because of this condition (test code = 36814-3) Whether the patient was admitted to intensive care unit (ICU) for condition of interest (test code = 86886-1) Whether patient resides in a congregate care setting (test code = 79794-7) [facility] AG[facility]ILARSARS-CoV-2 (COVID-19) RNA [Presence] in Respiratory specimen by RALF with probe [id number] 17:08:30 Test Item Value Reference Range Interpretation Comments SARS-CoV-2 (COVID-19) RNA Not detected Not-Detected [Presence] in Respiratory specimen by RALF with probe detection (test code = 71354-4) [facility] AGUILARSARS-CoV-2 (COVID-19) RNA [Presence] in Respiratory specimen by RALF with probe [id number] 16:54:24 Test Item Value Reference Range Interpretation Comments SARS-CoV-2 (COVID-19) RNA Not detected Not-Detected [Presence] in Respiratory specimen by RALF with probe detection (test code = 31609-7) [facility] AGUILARSARS-CoV-2 (COVID-19) RNA [Presence] in Respiratory specimen by RALF with probe [id number] 18:19:09 Test Item Value Reference Range Interpretation Comments SARS-CoV-2 (COVID-19) RNA Not detected Not-Detected [Presence] in Respiratory specimen by RALF with probe detection (test code = 34362-7) [facility] AGUILAR
[2022-07-15] MEDS ORDERED: FAMOTIDINE 20 MG/2 ML VIAL IV ONE (20:26)
[2022-07-15] MEDS ORDERED: LEVALBUTEROL 1.25 MG/3 ML NEB ONE (20:26)
[2022-07-15] MEDS ORDERED: IPRATROPIUM BROM 0.5MG/2.5ML ONE (20:26)
[2022-07-15] MEDS ORDERED: METHYLPREDNISOLONE 125 MG INJ ONE (20:26)
[2022-07-15 20:36] LABS: Arterial Blood Carboxyhemoglob 1.8 % (0-1.5); Blood Gas Oxyhemoglobin 83.5 % (94-97); Blood O2 Saturation 85.9 % (92-98.5)
[2022-07-15] MEDS ORDERED: FUROSEMIDE 40 MG/4 ML VIAL ONE (21:11)
--- NOTE | 2022-07-15 21:21 | RAD REPORT ---
EXAM DESCRIPTION: Macrina Single View07/15/2022 8:59 pm CLINICAL HISTORY: Cough COMPARISON: 2018 FINDINGS: Small to moderate left pleural effusion Mild bilateral pulmonary opacities. Cardiomegaly Postsurgical changes involve chest. Pacemaker leads place IMPRESSION: These findings likely indicate CHF
[2022-07-15 21:22] LABS: Protime INR 3.85
[2022-07-15 21:23] LABS: Absolute Lymphocytes (CBC) 0.3 K/uL (0.7-4.9); Hematocrit 36.5 % (39.6-49.0); Lymphocytes % 2.1 % (15.3-44.8); MCV 87.6 fL (80-100); MPV 8.4 fL (7.6-11.3); RBC Red Blood Cell Count 4.16 M/uL (4.33-5.43)
--- NOTE | 2022-07-15 21:23 | EDPHYS ---
Physician Documentation [facility] Name: Dequan Ramirez Age: 76 yrs Sex: Male : 1945 Arrival Date: 07/15/2022 Time: 20:07 Bed 8 Private MD: ED Physician Derrek Mcknight HPI: 07/15 20:54 This 76 yrs old Male presents to ER via Wheelchair with complaints of alison Breathing Difficulty. 20:54 The patient has shortness of breath at rest, with light activity. Onset: The alison symptoms/episode began/occurred 2 day(s) ago. Duration: The symptoms are continuous, and are steadily getting worse. The patient's shortness of breath is aggravated by exertion, light activity, supine position, is alleviated by elevating head, pursed lip breathing, rest, sitting up, application of supplemental oxygen. Associated signs and symptoms: The patient has no apparent associated signs or symptoms. Severity of symptoms: At their worst the symptoms were mild moderate in the emergency department the symptoms are unchanged. The patient has not experienced similar symptoms in the past. Historical: - Allergies: 20:18 PENICILLINS; hb - PMHx: 20:18 Atrial Fib; COLON CA; COPD; Dementia; DVT; High Cholesterol; Hypertension; hb - PSHx: 20:18 Pacemaker; hb - Immunization history:: Client reports receiving the 2nd dose of the Covid vaccine. - Social history:: Smoking status: unknown. ROS: 20:55 Constitutional: Negative for fever, chills, and weight loss, Eyes: Negative for injury, alison pain, redness, and discharge, ENT: Negative for injury, pain, and discharge, Neck: Negative for injury, pain, and swelling, Abdomen/GI: Negative for abdominal pain, nausea, vomiting, diarrhea, and constipation, Back: Negative for injury and pain, : Negative for injury, bleeding, discharge, and swelling, Skin: Negative for injury, rash, and discoloration, Neuro: Negative for headache, weakness, numbness, tingling, and seizure, Psych: Negative for depression, anxiety, suicide ideation, homicidal ideation, and hallucinations, Allergy/Immunology: Negative for hives, rash, and allergies, Endocrine: Negative for neck swelling, polydipsia, polyuria, polyphagia, and marked weight changes, Hematologic/Lymphatic: Negative for swollen nodes, abnormal bleeding, and unusual bruising. 20:55 Cardiovascular: Positive for chest pain, palpitations. 20:55 Respiratory: Positive for cough, "sounds productive". 20:55 Abdomen/GI: Positive for 20:55 MS/extremity: Positive for swelling, of the left leg. Exam: 20:55 Constitutional: This is a well developed, well nourished patient who is awake, alert, alison and in no acute distress. Head/Face: Normocephalic, atraumatic. Eyes: Pupils equal round and reactive to light, extra-ocular motions intact. Lids and lashes normal. Conjunctiva and sclera are non-icteric and not injected. Cornea within normal limits. Periorbital areas with no swelling, redness, or edema. ENT: Nares patent. No nasal discharge, no septal abnormalities noted. Tympanic membranes are normal and external auditory canals are clear. Oropharynx with no redness, swelling, or masses, exudates, or evidence of obstruction, uvula midline. Mucous membranes moist. Neck: Trachea midline, no thyromegaly or masses palpated, and no cervical lymphadenopathy. Supple, full range of motion without nuchal rigidity, or vertebral point tenderness. No Meningismus. Chest/axilla: Normal chest wall appearance and motion. Nontender with no deformity. No lesions are appreciated. Abdomen/GI: Soft, non-tender, with normal bowel sounds. No distension or tympany. No guarding or rebound. No evidence of tenderness throughout. Back: No spinal tenderness. No costovertebral tenderness. Full range of motion. Male : Normal genitalia with no discharge or lesions. Skin: Warm, dry with normal turgor. Normal color with no rashes, no lesions, and no evidence of cellulitis. Neuro: Awake and alert, GCS 15, oriented to person, place, time, and situation. Cranial nerves II-XII grossly intact. Motor strength 5/5 in all extremities. Sensory grossly intact. Cerebellar exam normal. Normal gait. Psych: Awake, alert, with orientation to person, place and time. Behavior, mood, and affect are within normal limits. 20:55 Cardiovascular: Rate: tachycardic, Rhythm: irregularly irregular, Pulses: Pulses are 4+ in bilateral radial, brachial, femoral, popliteal, posterior tibial and and dorsalis pedis arteries.. Heart sounds: normal, Edema: 2+ edema to level of left midcalf and right midcalf, JVD: is noted bilaterally, to the angle of the jaw. 20:55 Musculoskeletal/extremity: DVT Exam: no pain, no tenderness, negative Homans' sign noted on exam, no appreciated bluish discoloration, no erythema, no increased warmth, swelling. 21:23 ECG was reviewed by the Attending Physician. [facility] Vital Signs: 20:17 BP 134 / 81; Pulse 146; Resp 30; Temp 98.4; Pulse Ox 83% on R/A; hb 20:30 BP 123 / 66; Pulse 112; Resp 18 S; Pulse Ox 96% ; Pain 0/10; aa9 22:00 BP 122 / 96; Pulse 116; Resp 17 S; Pulse Ox 99% on BiPAP; Pain 0/10; aa9 07/16 00:30 BP 102 / 60; Pulse 113; Resp 17 S; Temp 98.6(O); Pulse Ox 95% on 2 lpm NC; aa9 MDM: 07/15 20:20 Patient medically screened. alison 20:58 Differential diagnosis: Bronchitis CHF exacerbation, Chronic Obstructive Pulmonary alison Disease bronchitis, flu, pneumonia, Pneumothorax pulmonary edema, reactive airway disease, Sepsis Unstable Angina. Antibiotic administration: Not indicated. The patient's Wells Deep Vein Thrombosis Score was calculated as follows: Heart Rate >100 BPM (1.5 Pts) Total Score: 0-2 Pts- Low Risk. The patient's pulmonary embolism risk score was calculated as follows: Total Score: 0-2 points. This patient was found to be at low risk for a pulmonary embolism by using the Well's assessment criteria. Immunization status: Pneumococcal vaccine: Influenza vaccine: Data reviewed: vital signs, nurses notes, EMS record, lab test result(s), EKG, radiologic studies, plain films. Data interpreted: school lunch monitor: rate is 145 beats/min, rhythm is atrial fibrillation, Pulse oximetry: on room air is 83 %. Test interpretation: by ED physician or midlevel provider: ECG, plain radiologic studies. Counseling: I had a detailed discussion with the patient and/or guardian regarding: the historical points, exam findings, and any diagnostic results supporting the discharge/admit diagnosis, lab results, radiology results, the need for further work-up and treatment in the hospital. 07/15 20:21 Order name: Basic Metabolic Panel; Complete Time: 21:55 [facility] 07/15 20:21 Order name: CBC with Diff; Complete Time: 21:29 [facility] 07/15 20:21 Order name: LFT's; Complete Time: 21:55 [facility] 07/15 20:21 Order name: Magnesium; Complete Time: 21:55 [facility] 07/15 20:21 Order name: NT PRO-BNP; Complete Time: 21:55 [facility] 07/15 20:21 Order name: PT-INR; Complete Time: 21:29 [facility] 07/15 20:21 Order name: Troponin HS; Complete Time: 21:55 [facility] 07/15 20:21 Order name: Blood Culture Adult (2) 07/15 20:21 Order name: Lactate; Complete Time: 21:44 [facility] 07/15 20:21 Order name: ABG; Complete Time: 21:19 [facility] 07/15 20:52 Order name: Flu; Complete Time: 21:55 [facility] 07/15 20:52 Order name: SARS-COV-2 RT PCR (Document "Date of Onset" if Symptomatic); Complete Time: [facility] 07/15 20:53 Order name: Digoxin; Complete Time: 21:55 [facility] 07/15 22:20 Order name: Urine Osmolality; Complete Time: 01: [facility] 07/15 20:21 Order name: XRAY Chest (1 view); Complete Time: : [facility] 07/15 20:21 Order name: EKG; Complete Time: 20: [facility] 07/15 20:21 Order name: Cardiac monitoring; Complete Time: 20: [facility] 07/15 20:21 Order name: EKG - Nurse/Tech; Complete Time: 21:08 [facility] 07/15 20:21 Order name: BIPAP [facility] 07/15 22:12 Order name: Thorax W/Wo Con [facility] 07/15 22:20 Order name: Osmolality, Serum; Complete Time: 00:36 [facility] 07/15 22:20 Order name: Urine Sodium Random; Complete Time: : [facility] 07/16 00:49 Order name: Lactate Sepsis 2 HR Follow-up; Complete Time: 01:29 [facility] 07/15 20:21 Order name: IV Saline Lock; Complete Time: 21:09 [facility] 07/15 20:21 Order name: Labs collected and sent; Complete Time: 21:09 [facility] 07/15 20:21 Order name: O2 Per Protocol; Complete Time: 20: alison 07/15 20:21 Order name: O2 Sat Monitoring; Complete Time: alison 07/15 20:52 Order name: Nava; Complete Time: : alison EC:23 Rate is 118 beats/min. Rhythm is irregularly irregular. QRS [place] is Normal. SC interval alison is normal. QRS interval is normal. QT interval is normal. No Q waves. T waves are Normal. No ST changes noted. Clinical impression: Abnormal EKG without significant change and Atrial Fibrillation. Interpreted by me. Reviewed by me. Administered Medications: 20:48 Drug: Xopenex (levalbuterol) 3.75 mg Route: Inhalation; aa9 23:12 Follow up: Response: No adverse reaction aa9 20:48 Drug: SOLU-Medrol (methylPrednisoLONE) 125 mg Route: IVP; Site: right forearm; aa9 23:12 Follow up: Response: No adverse reaction aa9 21:08 Drug: Pepcid (famotidine) 20 mg Route: IVP; Site: right forearm; aa9 23:11 Follow up: Response: No adverse reaction aa9 21:08 Drug: AtroVENT (ipratropium) Aerosol 0.5 mg Route: Inhalation; aa9 23:13 Follow up: Response: No adverse reaction aa9 21:18 Drug: Lasix (furosemide) 40 mg Route: IVP; Site: right forearm; aa9 23:12 Follow up: Response: No adverse reaction aa9 07/16 00:32 Drug: NS 0.9% 1000 ml Route: IV; Rate: 75 ml/hr; Site: right forearm; aa9 00:32 Drug: Meropenem 1 grams Route: IV; Rate: per protocol; Site: right forearm; aa9 Disposition Summary: 07/15/22 21:22 Hospitalization Ordered Hospitalization Status: Inpatient Admission alison Provider: Ophelia Demarco cha Location: Telemetry/MedSurg (Inpatient) alison Condition: Fair alison Problem: an acute exacerbation alison Symptoms: have improved alison Bed/Room Type: Standard alison Room Assignment: 406(07/15/22 22:42) bb Diagnosis - Unspecified combined systolic (congestive) and diastolic (congestive) heart failure alison - Hypoxemia alison - Chronic atrial fibrillation - paced alison - COPD/ Chronic obstructive pulmonary disease with (acute) exacerbation alison - group home (current) use of anticoagulants alison - Pneumonia due to other specified bacteria - BIBASILAR PNEUMONIA alison - Pleural effusion in other conditions classified elsewhere - BILATERAL alison - Splenomegaly, not elsewhere classified alison - Unspecified cirrhosis of liver alison Forms: - Medication Reconciliation Form alison - SBAR form alison Signatures: Dispatcher [employer] Derrek Sterling MD MD cha Ballard, Brenda, RN RN bb Baxter, Heather, RN RN hb Avalos, Aylin, RN RN aa9 Brown, Sophia, PA-C PA-C sb4 Corrections: (The following items were deleted from the chart) 07/15 22:42 21:22 alison ogden
--- NOTE | 2022-07-15 21:23 | ER ---
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 Coronavirus screen: Client hb presents with at least one sign or symptom that may indicate coronavirus-19. Standard/surgical mask placed on the client. Provider contacted for isolation considerations. Ebola Screen: No symptoms or risks identified at this time. Risk Assessment: Do you want to hurt yourself or someone else? Patient reports no desire to harm self or others. Onset of symptoms was July 14, 2022. 20:17 Method Of Arrival: Wheelchair hb 20:17 Acuity: [place] 2 hb 07/16 00:33 Initial Sepsis Screen: Does the patient meet any 2 criteria? HR > 90 bpm. Yes Does the aa9 patient have a suspected source of infection? Yes: Productive cough/pneumonia. Triage Assessment: 00:34 Respiratory: Reports shortness of breath at rest Onset: The symptoms/episode aa9 began/occurred yesterday, the patient has mild shortness of breath. Historical: - Allergies: 07/15 20:18 PENICILLINS; hb - PMHx: 20:18 Atrial Fib; COLON CA; COPD; Dementia; DVT; High Cholesterol; Hypertension; hb - PSHx: 20:18 Pacemaker; hb - Immunization history:: Client reports receiving the 2nd dose of the Covid vaccine. - Social history:: Smoking status: unknown. Screenin:32 Abuse screen: Denies threats or abuse. Denies injuries from another. Nutritional aa9 screening: No deficits noted. Tuberculosis screening: No symptoms or risk factors identified. Fall Risk None identified. Assessment: 20:50 Pain: Denies pain. Neuro: Level of Consciousness is awake, alert, obeys commands, aa9 Oriented to person, place, time, situation. Cardiovascular: Rhythm is ventricular pacer. Respiratory: Airway is patent Respiratory effort is even, labored, with nasal flaring, Breath sounds with crackles bilaterally. 20:50 General: Appears uncomfortable, slender, Behavior is cooperative, anxious. aa9 20:50 Cardiovascular: Patient's skin is warm and dry. Edema is absent. Parent/caregiver aa9 reports patient has had fatigue, shortness of breath, since yesterday. Derm: Skin with poor turgor. 07/16 00:40 General: Report called to raimundo, Daughter at bedside, understands need for admission, aa9 denies concerns, pt stable understands needs for admission. pt on 2L NC, O2 sat 96% . Vital Signs: 07/15 20:17 BP 134 / 81; Pulse 146; Resp 30; Temp 98.4; Pulse Ox 83% on R/A; hb 20:30 BP 123 / 66; Pulse 112; Resp 18 S; Pulse Ox 96% ; Pain 0/10; aa9 22:00 BP 122 / 96; Pulse 116; Resp 17 S; Pulse Ox 99% on BiPAP; Pain 0/10; aa9 07/16 00:30 BP 102 / 60; Pulse 113; Resp 17 S; Temp 98.6(O); Pulse Ox 95% on 2 lpm NC; aa9 ED Course: 07/15 20:07 Patient arrived in ED. ja2 20:17 Triage completed. hb 20:18 Arm band placed on. hb 20:19 Derrek Mcknight MD is Attending Physician. alison 20:21 Meghann Adams, RN is Primary Nurse. aa9 20:40 Inserted saline lock: 20 gauge in right forearm, using aseptic technique. Blood aa9 collected. 21:01 XRAY Chest (1 view) In Process Unspecified. EDMS 21:08 Blood Culture Adult (2) Sent. aa9 21:08 Lactate Sent. aa9 21:09 Basic Metabolic Panel Sent. aa9 21:09 SARS-COV-2 RT PCR (Document "Date of Onset" if Symptomatic) Sent. jb4 21:09 CBC with Diff Sent. aa9 21:09 Flu Sent. jb4 21:09 LFT's Sent. aa9 21:09 Digoxin Sent. jb4 21:09 Magnesium Sent. aa9 21:09 NT PRO-BNP Sent. aa9 21:09 Troponin HS Sent. aa9 21:09 PT-INR Sent. aa9 21:18 Flu Sent. aa9 21:18 SARS-COV-2 RT PCR (Document "Date of Onset" if Symptomatic) Sent. aa9 21:18 Lactate Sent. aa9 21:19 Blood Culture Adult (2) Sent. aa9 21:19 Basic Metabolic Panel Sent. aa9 21:19 CBC with Diff Sent. aa9 21:19 LFT's Sent. aa9 21:19 Magnesium Sent. aa9 21:19 NT PRO-BNP Sent. aa9 21:19 PT-INR Sent. aa9 21:19 Troponin HS Sent. aa9 21:19 Digoxin Sent. aa9 21:20 Ophelia Demarco MD is Hospitalizing Provider. alison 23:11 Osmolality, Serum Sent. aa9 23:13 No provider procedures requiring assistance completed. aa9 07/16 00:33 Patient has correct armband on for positive identification. Call light in reach. Side aa9 rails up X2. Door closed. Lights dimmed. Warm blanket given. 00:42 Patient admitted, IV remains in place. aa9 Administered Medications: 07/15 20:48 Drug: Xopenex (levalbuterol) 3.75 mg Route: Inhalation; aa9 23:12 Follow up: Response: No adverse reaction aa9 20:48 Drug: SOLU-Medrol (methylPrednisoLONE) 125 mg Route: IVP; Site: right forearm; aa9 23:12 Follow up: Response: No adverse reaction aa9 21:08 Drug: Pepcid (famotidine) 20 mg Route: IVP; Site: right forearm; aa9 23:11 Follow up: Response: No adverse reaction aa9 21:08 Drug: AtroVENT (ipratropium) Aerosol 0.5 mg Route: Inhalation; aa9 23:13 Follow up: Response: No adverse reaction aa9 21:18 Drug: Lasix (furosemide) 40 mg Route: IVP; Site: right forearm; aa9 23:12 Follow up: Response: No adverse reaction aa9 07/16 00:32 Drug: NS 0.9% 1000 ml Route: IV; Rate: 75 ml/hr; Site: right forearm; aa9 00:32 Drug: Meropenem 1 grams Route: IV; Rate: per protocol; Site: right forearm; aa9 Medication: 00:34 VIS not applicable for this client. aa9 Outcome: 07/15 21:22 Decision to Hospitalize by Provider. alison 07/16 00:33 Condition: stable aa9 00:34 Instructed on the need for admit. aa9 00:40 Admitted to Med/surg accompanied by nurse, room 406, with oxygen, with chart, Report aa9 called to Raimundo ROCA 01:30 Patient left the ED. aa9 Signatures: Dispatcher [employer] EDMO Derrek Mcknight MD MD cha Baxter, Heather, RN RN Desmond Mcneal RN RN Cookie Lucas Aylin, RN RN aa9 Corrections: (The following items were deleted from the chart) 07/15 21:32 20:50 Pain: Denies pain. aa9 aa9 21:47 20:50 Cardiovascular: Rhythm is irregular aa9 aa9
[2022-07-15 21:44] LABS: Albumin 4.2 g/dL (3.4-5.0); Bilirubin Direct 0.9 mg/dL (0-0.2); Bilirubin Total 2.1 mg/dL (0.2-1.0); Protein, Total 7.6 g/dL (6.4-8.2); Troponin High Sensitivity 31.9 pg/mL (<58.9)
[2022-07-15 21:48] LABS: Magnesium 1.8 mg/dL (1.8-2.4); Potassium 4.5 mmol/L (3.5-5.1)
--- NOTE | 2022-07-15 22:22 | P.HP ---
Certification for Inpatient Patient admitted to: Inpatient With expected LOS: >2 Midnights Patient will require the following post-hospital care: None Practitioner: I am a practitioner with admitting privileges, knowledge of patient current condition, hospital course, and medical plan of care. Services: Services provided to patient in accordance with Admission requirements found in Title 42 Section 412.3 of the Code of Federal Regulations Patient History Date of Service: 07/16/22 Reason for admission: Acute Respiratory Failure History of Present Illness: Patient is a 76 year old male with history of afib s/p watchman on chronic anticoagulation, CAD s/p CABG and pacemaker, COPD, dementia, hypertension, and CHF who presented to the ED with complaints of worsening shortness of breath, cough, and congestion. He was noted to be saturating 83% on RA upon arrival with RR of 30 and HR of 146. He improved with supplemental O2. ABG with pH of 7.45, pCO2 33. Labs significant for WBC 14.9, Na 124, Cl 89, Cr 1.31, serum osmolality 260, lactic acid 2.1, BNP 17,000. Chest xray showed "Small to moderate left pleural effusion, Mild bilateral pulmonary opacities, and Cardiomegaly." He was later placed on bipap and given solumedrol, breathing treatment, pepcid, 40 mg lasix, 1L fluid, and 1gram meropenem. Gillette placed. CT chest suggested bibasilar pneumonia, bihilar lymphadenopathy, small bilateral pleural effusions, hepatomegaly, hepatic steatosis, and splenomegaly. Patient reports feeling improved during my assessment. Follow up lactate is 1.9. He is admitted for further management. Allergies Penicillins Allergy (Mild, Verified 12/21/21 08:27) Rash Home medications list reviewed: Yes Home Medications: Digoxin [Lanoxin*] 0.25 mg PO DAILY 09/04/18 Furosemide [Lasix*] 1 tab PO DAILY 09/04/18 Potassium Chloride 1 tab PO NOON 09/04/18 Tamsulosin [Flomax*] 1 cap PO DAILY 09/04/18 Garlic 1 cap PO DAILY 12/21/21 Lisinopril/Hydrochlorothiazide [Lisinopril-Hctz 20-25 mg Tab] 1 tab PO DAILY 12/21/21 Metoprolol Succinate [Toprol Xl*] 2 tab PO DAILY 12/21/21 Multivit-Min/FA/Lycopen/Lutein [Centrum Silver Tablet] 1 each PO DAILY 12/21/21 Omeprazole [Prilosec] 1 tab PO BID 12/21/21 Rivaroxaban [Xarelto] 1 tab PO DAILY 12/21/21 Rosuvastatin Calcium [Crestor] 1 tab PO DAILY 12/21/21 - Past Medical/Surgical History Diabetic: No -: HTN -: Atrial fibrillation -: DVT-lt leg -: Hyperlipidemia -: Colon tumor -: Pulmonary HTN -: dementia -: CHF -: wendi -: colon ca with tumor removal -: heart bypass-2007 -: Shoulder sx -: Rt leg stent-superficial femoral artery -: cancer removal under the eye Psychosocial/ Personal History: Patient lives at home. - Family History Mother -: Heart disease, Hypertension, Diabetes, Cancer Father -: Lung disease, Cancer Sister -: Heart disease, Hypertension Brother -: Heart disease, Hypertension - Social History Smoking Status: Former smoker Alcohol use: Yes CD- Drugs: No Caffeine use: No Place of Residence: Home Review of Systems General: Weakness Respiratory: Cough, Shortness of Breath Physical Examination - Physical Exam General: Alert, In no apparent distress HEENT: Atraumatic, PERRLA, EOMI, Sclerae nonicteric Neck: Supple, 2+ carotid pulse no bruit, No LAD, Without JVD or thyroid abnormality Respiratory: Expiratory wheezes Cardiovascular: Regular rate/rhythm, Normal S1 S2 Gastrointestinal: Normal bowel sounds, No tenderness Musculoskeletal: No tenderness Integumentary: No rashes Neurological: Normal speech, Normal strength at 5/5 x4 extr, Normal tone, Normal affect Urinary: Gillette catheter - Studies Laboratory Data (last 24 hrs) 07/15/22 20:50: PT 42.3 H, INR 3.85 07/15/22 20:50: WBC 14.90 H, Hgb 12.4 L, Hct 36.5 L, Plt Count 203 07/15/22 20:50: Sodium 124 L, Potassium 4.5, BUN 17, Creatinine 1.31 H, Glucose 120 H, Magnesium 1.8, Total Bilirubin 2.1 H, AST 28, ALT 21, Alkaline Phosphatase 137 H Microbiology Data (last 24 hrs): 07/15/22 21:10 Nasopharnyx Influenza Type A Antigen Screen - Final 07/15/22 21:10 Nasopharnyx Influenza Type B Antigen Screen - Final Assessment and Plan - Problems (Diagnosis) (1) Sepsis Current Visit: Yes Status: Acute Qualifiers: Sepsis type: sepsis due to unspecified organism Sepsis acute organ dysfunction status: with acute organ dysfunction Severe sepsis acute organ dysfunction type: acute respiratory failure Acute respiratory failure type: with hypoxia Severe sepsis shock status: without septic shock Qualified C ode(s): A41.9 - Sepsis, unspecified organism; R65.20 - Severe sepsis without septic shock; J96.01 - Acute respiratory failure with hypoxia (2) Acute respiratory failure Current Visit: Yes Status: Acute Qualifiers: Respiratory failure complication: hypoxia Qualified Code(s): J96.01 - Acute respiratory failure with hypoxia (3) Atrial fibrillation Current Visit: Yes Status: Chronic Qualifiers: Atrial fibrillation type: unspecified chronic Qualified Code(s): I48.20 - Chronic atrial fibrillation, unspecified; I48.2 - Chronic atrial fibrillation (4) CAD (coronary artery disease) Current Visit: Yes Status: Chronic Qualifiers: Coronary Disease-Associated Artery/Lesion type: [place] artery [place] vs. transplanted heart: [place] heart Associated angina: without angina Qualified Code(s): I25.10 - Atherosclerotic heart disease of [place] coronary artery without angina pectoris (5) Pneumonia Current Visit: Yes Status: Acute Qualifiers: Pneumonia type: due to unspecified organism Laterality: bilateral Lung lo cation: lower lobe of lung Qualified Code(s): J18.9 - Pneumonia, unspecified organism (6) COPD (chronic obstructive pulmonary disease) Current Visit: Yes Status: Chronic Qualifiers: COPD type: unspecified COPD Qualified Code(s): J44.9 - Chronic obstructive pulmonary disease, unspecified (7) CHF (congestive heart failure) Current Visit: Yes Status: Acute Qualifiers: Heart failure type: combined systolic and diastolic Heart failure chronicity: acute on chronic Qualified Code(s): I50.43 - Acute on chronic combined systolic (congestive) and diastolic (congestive) heart failure - Plan -Received meropenem in ED. Will continue for anaerobe coverage given aspiration PNA possibility. PCN allergy. -Meeting severe sepsis criteria. Blood cultures obtained. Obtain sputum culture. -Incentive spirometry, pulse ox, and telemetry. -Patient initially requiring bipap but now saturating appropriately on 2L NC. Titrate and wean as tolerated. -Continue IV lasix. Diuresing appropriately as of now. Monitor output via gillette. Fluid restriction. -Hyponatremia with Na of 124. Serum osmolality 260. Pend urine osmolality and urine sodium. No AMS. -Breathing treatments as needed. IV steroids. Pulmonology consult -Cardiology consult. Patient follows with outside undertaker helper regularly. Echo ordered. -Monitor and replete electrolytes per protocol -Reconcile and continue home medications -Lovenox for VTE prophylaxis -Full code Discharge Plan: Home Plan to discharge in: Greater than 2 days - Advance Directives Does patient have a Living Will: Yes Does patient have a Durable POA for Healthcare: Yes - Code Status/Comfort Care Code Status Assessed: Yes (Full) Critical Care: No Time Spent Managing Pts Care (In Minutes): 50
[2022-07-15] MEDS ORDERED: Meropenem 1000 MG/VIAL IV ONE (23:48)
[2022-07-15] MEDS ORDERED: NA CHLORIDE 0.9% 1,000 ML ONE (23:48)
[2022-07-15] MEDS ORDERED: NA CHLORIDE 0.9% 100 ML IV ONE (23:48)
[2022-07-16] MEDS ORDERED: ONDANSETRON 4 MG/2 ML VIAL IV PRN (00:38)
[2022-07-16] MEDS ORDERED: MAGNESIUM SULFATE 1 gm IVPB 1 GM/100 ML BAG IV ONE (00:38)
[2022-07-16] MEDS ORDERED: ACETAMINOPHEN 500 MG TAB PO PRN (00:38)
[2022-07-16] MEDS: METHYLPREDNISOLONE 40 MG INJ IV SCH ×3 (02:09→17:51)
[2022-07-16] MEDS: ALBUTEROL 2.5 MG/3 ML NEB SOL NEB SCH ×2 (02:50→08:14)
[2022-07-16] MEDS: IPRATROPIUM BROM 0.5MG/2.5ML NEB SCH ×2 (02:50→08:14)
[2022-07-16 03:45] LABS: Absolute Lymphocytes (CBC) 0.2 K/uL (0.7-4.9); Hematocrit 34.5 % (39.6-49.0); Lymphocytes % 1.4 % (15.3-44.8); MPV 8.2 fL (7.6-11.3); RBC Red Blood Cell Count 3.96 M/uL (4.33-5.43)
[2022-07-16 03:53] VITALS: BMI 21.2
[2022-07-16 04:11] LABS: Magnesium 2.1 mg/dL (1.8-2.4); Phosphorus 3.6 mg/dL (2.5-4.9); Potassium 3.9 mmol/L (3.5-5.1); Thyroid Stimulating Hormone 1.63 uIU/mL (0.360-3.740)
[2022-07-16] MEDS ORDERED: Meropenem 1,000 MG in NA CHLORIDE 0.9% 100 ML IV SCH (09:00)
[2022-07-16] MEDS ORDERED: INFLUENZA VACCINE (for 6+ mo) 0.5 ML DOSE IMVAC ONE (09:00)
[2022-07-16] MEDS ORDERED: FUROSEMIDE 40 MG/4 ML VIAL IV SCH (09:00)
[2022-07-16] MEDS: ASPIRIN EC 81 MG TAB PO SCH (09:01)
--- NOTE | 2022-07-16 11:59 | P.CNS ---
Date of Consult: 07/16/22 Reason for Consult: Pneumonia COPD exacerbation possible CHF Chief Complaint: Acute Respiratory Failure History of Present Illness: Patient is 76 years of age with a history of CHF atrial fibrillation coronary artery disease mated with worsening shortness of breath cough congestion appears to be acute respiratory distress history of COPD does not take any inhalers as he found to have pneumonia bilateral pleural effusions he is currently doing a little better Allergies Penicillins Allergy (Mild, Verified 12/21/21 08:27) Rash Home Medications: Digoxin [Lanoxin*] 0.25 mg PO DAILY 09/04/18 Furosemide [Lasix*] 1 tab PO DAILY 09/04/18 Potassium Chloride 1 tab PO DAILY 09/04/18 Tamsulosin [Flomax*] 1 cap PO BEDTIME 09/04/18 Garlic 1 cap PO DAILY 12/21/21 Lisinopril/Hydrochlorothiazide [Lisinopril-Hctz 20-25 mg Tab] 1 tab PO DAILY 12/21/21 Metoprolol Succinate [Toprol Xl*] 2 tab PO BEDTIME 12/21/21 Multivit-Min/FA/Lycopen/Lutein [Centrum Silver Tablet] 1 each PO DAILY 12/21/21 Omeprazole [Prilosec] 1 tab PO BID 12/21/21 Rivaroxaban [Xarelto] 1 tab PO DAILY 12/21/21 Rosuvastatin Calcium [Crestor] 1 tab PO DAILY 12/21/21 Ferrous Gluconate 1 tab PO BID 07/16/22 - Past Medical/Surgical History Diabetic: No -: HTN -: Atrial fibrillation -: DVT-lt leg -: Hyperlipidemia -: Colon tumor -: Pulmonary HTN -: dementia -: CHF -: melanoma -: wendi -: colon ca with tumor removal -: heart bypass-2007 -: Shoulder sx -: Rt leg stent-superficial femoral artery -: cancer removal under the eye -: watchman device -: cancer removed left forearm Psychosocial/ Personal History: Patient lives at home. - Family History Mother Medical History: Heart disease, Hypertension, Diabetes, Cancer Father Medical History: Lung disease, Cancer Sister Medical History: Heart disease, Hypertension Brother Medical History: Heart disease, Hypertension - Social History Smoking Status: Unknown if ever smoked Alcohol use: Yes CD- Drugs: No Caffeine use: No Place of Residence: Home Review of Systems 10-point ROS is otherwise unremarkable General: Weakness Respiratory: Cough, Shortness of Breath Physical Examination Temp Pulse Resp BP Pulse Ox 98.6 F 84 16 107/52 L 93 07/16/22 08:00 07/16/22 09:01 07/16/22 08:00 07/16/22 09:01 07/16/22 08:00 General: Alert, Oriented x3 HEENT: Atraumatic Neck: Supple Respiratory: Diminished, Crackles/rales Cardiovascular: No edema (Crackles at the bases), Irregular heart rate/rhythm Gastrointestinal: Normal bowel sounds, Soft and benign Laboratory Data (last 24 hrs) 07/15/22 20:50: PT 42.3 H, INR 3.85 07/15/22 20:50: WBC 14.90 H, Hgb 12.4 L, Hct 36.5 L, Plt Count 203 07/15/22 20:50: Sodium 124 L, Potassium 4.5, BUN 17, Creatinine 1.31 H, Glucose 120 H, Magnesium 1.8, Total Bilirubin 2.1 H, AST 28, ALT 21, Alkaline Phosphatase 137 H - Problems (1) Pneumonia Current Visit: Yes Status: Acute Plan: Patient is 76 years of age difficult history of coronary artery disease CHF mated with worsening respiratory distress although he has a history of COPD has not been treated for that any bronchodilators patient does have small bilateral pleural effusion consolidation left lower lobe greater than the right only elevated white count consistent with pneumonia currently he is doing better vital signs are more stable change patient over to IV levofloxacin 500 mg daily DC meropenem changed over to p.o. prednisone cultures are pending evaluate for home O2 patient has mild hyponatremia mild renal insufficiency renal function is slightly worse Qualifiers: Pneumonia type: due to unspecified organism Laterality: bilateral Lung location: lower lobe of lung Qualified Code(s): J18.9 - Pneumonia, unspecified organism
[2022-07-16] MEDS: Levofloxacin500mg IV 500 MG/100 ML BAG IV SCH (12:00)
[2022-07-16] MEDS ORDERED: IPRATROPIUM BROM 0.5MG/2.5ML NEB PRN (12:01)
[2022-07-16] MEDS ORDERED: ALBUTEROL 2.5 MG/3 ML NEB SOL NEB PRN (12:01)
--- NOTE | 2022-07-16 13:05 | P.PN ---
Subjective Date of Service: 07/16/22 Chief Complaint: Acute Respiratory Failure Patient stated he feels much better today. He states his shortness of breath is much better. She is currently tolerating 2 to 3 L oxygen by nasal cannula. He was previously on BiPAP. Physical Examination - Vital Signs Temperature: 98.8 F Blood Pressure: 110/53 Pulse: 86 Respirations: 16 Pulse Ox (%): 97 - Studies Laboratory Data (last 24 hrs) 07/15/22 20:50: PT 42.3 H, INR 3.85 07/15/22 20:50: WBC 14.90 H, Hgb 12.4 L, Hct 36.5 L, Plt Count 203 07/15/22 20:50: Sodium 124 L, Potassium 4.5, BUN 17, Creatinine 1.31 H, Glucose 120 H, Magnesium 1.8, Total Bilirubin 2.1 H, AST 28, ALT 21, Alkaline Phosphatase 137 H Microbiology Data (last 24 hrs): 07/15/22 21:10 Nasopharnyx Influenza Type A Antigen Screen - Final 07/15/22 21:10 Nasopharnyx Influenza Type B Antigen Screen - Final Assessment And Plan - Current Problems (Diagnosis) (1) Acute respiratory failure with hypoxia Current Visit: Yes Status: Acute (2) CHF (congestive heart failure) Current Visit: Yes Status: Acute Qualifiers: Heart failure type: combined systolic and diastolic Heart failure chronicity: acute on chronic Qualified Code(s): I50.43 - Acute on chronic combined systolic (congestive) and diastolic (congestive) heart failure (3) Pneumonia Current Visit: Yes Status: Acute Qualifiers: Pneumonia type: due to unspecified organism Laterality: bilateral Lung location: lower lobe of lung Qualified Code(s): J18.9 - Pneumonia, unspecified organism (4) Sepsis Current Visit: Yes Status: Acute Qualifiers: Sepsis type: sepsis due to unspecified organism Sepsis acute organ dysfunction status: with acute organ dysfunction Severe sepsis acute organ dysfunction type: acute respiratory failure Acute respiratory failure type: with hypoxia Severe sepsis shock status: without septic shock Qualified Code(s): A41.9 - Sepsis, unspecified organism; R65.20 - Severe sepsis without septic shock; J96.01 - Acute respiratory failure with hypoxia (5) Atrial fibrillation Current Visit: Yes Status: Chronic Qualifiers: Atrial fibrillation type: unspecified chronic Qualified Code(s): I48.20 - Chronic atrial fibrillation, unspecified; I48.2 - Chronic atrial fibrillation (6) COPD exacerbation Current Visit: No Status: Acute - Plan Physical Exam General: Alert, In no apparent distress Neck: Supple, JVD not distended. Respiratory: Expiratory wheezes, mild bibasilar rales. Cardiovascular: Regular rate/rhythm, Normal S1 S2 Gastrointestinal: Normal bowel sounds, No tenderness Musculoskeletal: No tenderness Integumentary: No rashes Neurological: No focal motor deficit. Urinary: Nava catheter. Plan: Patient is responding to treatment. Leukocytosis resolved. Continue IV antibiotics. IV Lasix for CHF exacerbation Scheduled bronchodilators, oral prednisone for COPD exacerbation. Pulmonary input appreciated. Patient with extensive cardiac history. Cardiology consulted for heart failure. Monitor intake and output. No IV fluid. Monitor renal function to follow hyponatremia. Activity as tolerated.
[2022-07-16] MEDS: ARFORMOTEROL TARTRATE 15 MCG/2 ML VIAL.NEB NEB SCH (19:45)
--- NOTE | 2022-07-16 20:55 | CON ---
Date of Consultation: 07/16/2022 Reason For Consultation: Shortness of breath and congestive heart failure. History Of Present Illness: This is a 76-year-old male with extensive cardiac history significant fo r coronary artery disease, status post CABG has an ICD and pacemaker in place, COPD, dementia, hypert ension, atrial fibrillation, status post Watchman placement who presented with worsening shortness of breath, cough, and orthopnea. He was saturating 83% on room air and in mild respiratory distress. With IV diuretics, patient is feeling better. Denies having any chest pain. Past Medical History: As outlined above in the HPI. He has hypertension, CHF, atrial fibrillation, DVT, colon cancer, dementia, congestive heart failure, and coronary artery disease. Past Surgical History: Cardiac bypass surgery. Medications: Refer to reconciliation sheet for detailed list. Allergies: PENICILLIN. Family History: There is history of lung cancer. No premature coronary artery disease. Social History: He is an ex smoker. Does not drink or use any drugs. Review of Systems: All systems reviewed and were negative except for what is mentioned in HPI. Physical Examination: Vital Signs: Reviewed. Head And Neck: Pupils are equal and reactive to light. Intact eye movements. Positive JVD. No cer vical lymphadenopathy. Neck: Supple. Thyroid is not enlarged. Lungs: He has crackles at both lung bases. No accessory muscle use or muscle retraction. Heart: Irregularly irregular. No extra sounds. Abdomen: Soft, nontender. Bowel sounds positive. No organomegaly. No masses or hernia. No rigidi ty or rebound. Extremities: No clubbing or cyanosis. Intact pulses. Skin: No rash. No nausea. Neuro: Alert, awake, and oriented x3. No acute focal deficits appreciated. Investigations: Sodium 125, BUN 18, creatinine 1.39. Troponin was 31. Chest x-ray suggestive of he art failure. Assessment And Recommendations: 1.[id number] systolic heart failure exacerbation. I recommend to change the Lasix to twice a day and monitor BUN, creatinine, and electrolytes and adjust further if needed. 2.Atrial fibrillation. He is rate controlled on Xarelto. Continue that as well as metoprolol. 3.Coronary artery disease. There is no chest pain and this condition is stable. SR/MODL Voice ID: [id number] Report ID: [id number]
[2022-07-16] MEDS: METOPROLOL XL 50 MG TAB PO SCH (21:33)
[2022-07-16] MEDS: TAMSULOSIN 0.4 MG SR CAP PO SCH (21:33)
[2022-07-16] MEDS: predniSONE 20 MG TAB PO SCH (21:33)
[2022-07-17] MEDS: METHYLPREDNISOLONE 40 MG INJ IV SCH ×3 (02:08→16:30)
[2022-07-17 04:16] LABS: Absolute Lymphocytes (CBC) 0.2 K/uL (0.7-4.9); Hematocrit 33.2 % (39.6-49.0); Lymphocytes % 1.5 % (15.3-44.8); MCV 86.9 fL (80-100); MPV 8.2 fL (7.6-11.3); RBC Red Blood Cell Count 3.81 M/uL (4.33-5.43)
[2022-07-17 04:32] LABS: Potassium 4.9 mmol/L (3.5-5.1)
[2022-07-17 04:50] LABS: Blood Morphology Comment NOTED (NOT SEEN); Burr Cells 3+; Platelet Estimate ADEQ
[2022-07-17] MEDS: predniSONE 20 MG TAB PO SCH ×2 (08:45→21:04)
[2022-07-17] MEDS: RIVAROXABAN 20 MG TABLET PO SCH (08:45)
[2022-07-17] MEDS: ASPIRIN EC 81 MG TAB PO SCH (08:45)
[2022-07-17] MEDS: FUROSEMIDE 40 MG/4 ML VIAL IV SCH (08:46)
[2022-07-17] MEDS: DIGOXIN 0.25 MG TABLET PO SCH (08:46)
[2022-07-17] MEDS: ARFORMOTEROL TARTRATE 15 MCG/2 ML VIAL.NEB NEB SCH ×2 (08:55→21:35)
[2022-07-17] MEDS ORDERED: FUROSEMIDE 20 MG TABLET PO SCH (09:00)
[2022-07-17] MEDS: Levofloxacin500mg IV 500 MG/100 ML BAG IV SCH (11:33)
--- NOTE | 2022-07-17 14:43 | RAD REPORT ---
EXAM DESCRIPTION: CT - Thorax W/Wo Con - 07/15/2022 11:32 pm CLINICAL HISTORY: The patient is 76 years old and is Male; SHOB, leukocytosis, elevated lactic acid TECHNIQUE: Axial computed tomography images of the chest without and with intravenous contrast. Sa gittal and coronal reformatted images were created and reviewed. This CT exam was performed using o ne or more of the following dose reduction techniques: automated exposure control, adjustment of th e mA and/or kV according to patient size, and/or use of iterative reconstruction technique. DLP: 844 mGy*cm COMPARISON: Chest radiograph of the same day. FINDINGS: LUNGS: Groundglass opacities and consolidations in the bilateral lower lobes and lingula . Advanced chronic lung changes with hyperinflation bibasilar scarring. PLEURAL SPACE: Small bilateral pleural effusions. No pneumothorax. Right-sided calcified pleural plaques. HEART: Prior mediastinotomy. Cardiomegaly. No pericardial effusion. No significant coronary artery calcifications. BONES/JOINTS: Multilevel degenerative changes of the visualized spine. No acute fracture. No dislocation. SOFT TISSUES: Unremarkable. VASCULATURE: Atherosclerotic vascular calcifications. No thoracic aortic aneurysm. LYMPH NODES: Bihilar lymphadenopathy. LIVER: Hepatomegaly and hepatic steatosis and cirrhotic morphology. Small amount of upper abdominal ascites. GALLBLADDER AND BILE DUCTS: Prior cholecystectomy. SPLEEN: Splenomegaly. KIDNEYS AND URETERS: Right renal cyst measuring 1.7 cm. IMPRESSION: 1. Findings compatible with bibasilar pneumonia or aspiration. 2. Bihilar lymphadenopathy. 3. Small bilateral pleural effusions. 4. Hepatomegaly and hepatic steatosis and cirrhotic morphology. Small amount of upper abdominal asc ites. 5. Splenomegaly. Electronically signed by: Demetri Gordillo DO 07/16/2022 12:21 AM CDT Due to temporary technical issues with the PACS/Fluency reporting system, reports are being signed by the in house radiologists without review as a courtesy to insure prompt reporting. The interpreting radiologist is fully responsible for the content of the report.
--- NOTE | 2022-07-17 14:47 | P.PN ---
Subjective Date of Service: 07/17/22 Chief Complaint: Acute Respiratory Failure Patient has no new complaint today and states he feels better. He is still hypoxic on room air with oxygen saturation of 87% No fever. manager monitoring up to 15 beats run of V. tach. Physical Examination - Vital Signs Temperature: 98.0 F Blood Pressure: 107/62 Pulse: 105 Respirations: 16 Pulse Ox (%): 98 Assessment And Plan - Current Problems (Diagnosis) (1) Acute respiratory failure with hypoxia Current Visit: Yes Status: Acute (2) CHF (congestive heart failure) Current Visit: Yes Status: Acute Qualifiers: Heart failure type: combined systolic and diastolic Heart failure chronicity: acute on chronic Qualified Code(s): I50.43 - Acute on chronic combined systolic (congestive) and diastolic (congestive) heart failure (3) Pneumonia Current Visit: Yes Status: Acute Qualifiers: Pneumonia type: due to unspecified organism Laterality: bilateral Lung location: lower lobe of lung Qualified Code(s): J18.9 - Pneumonia, unspecified organism (4) Sepsis Current Visit: Yes Status: Acute Qualifiers: Sepsis type: sepsis due to unspecified organism Sepsis acute organ dysfunction status: with acute organ dysfunction Severe sepsis acute organ dysfunction type: acute respiratory failure Acute respiratory failure type: with hypoxia Severe sepsis shock status: without septic shock Qualified Code(s): A41.9 - Sepsis, unspecified organism; R65.20 - Severe sepsis without septic shock; J96.01 - Acute respiratory failure with hypoxia (5) Atrial fibrillation Current Visit: Yes Status: Chronic Qualifiers: Atrial fibrillation type: unspecified chronic Qualified Code(s): I48.20 - Chronic atrial fibrillation, unspecified; I48.2 - Chronic atrial fibrillation (6) COPD exacerbation Current Visit: No Status: Acute - Plan Physical Exam General: Alert, In no apparent distress Neck: Supple, JVD not distended. Respiratory: Bibasilar rales. Cardiovascular: Regular rate/rhythm, Normal S1 S2 Gastrointestinal: Normal bowel sounds, No tenderness Musculoskeletal: No tenderness Neurological: No focal motor deficit. Urinary: Nava catheter. Plan: Leukocytosis fluctuating. Patient is still hyponatremic. Sodium level has not improved much. Continue IV antibiotics. IV Lasix for CHF exacerbation. Free water restriction Continue scheduled bronchodilators, oral prednisone for COPD exacerbation. Seen by pulmonary Patient with extensive cardiac history. Cardiology input appreciated. Monitor and optimize electrolytes-especially magnesium Monitor intake and output. Activity as tolerated. Continue telemetry.
[2022-07-17 15:56] LABS: Magnesium 2.1 mg/dL (1.8-2.4); Phosphorus 2.5 mg/dL (2.5-4.9)
--- NOTE | 2022-07-17 18:42 | EKG ---
Test Date: 2022-07-15 Test Time: 21:02:09 Multifocal Lens Inspector: JOVANNA MEASUREMENT RESULTS: Intervals: Rate: 118 WV: QRSD: 100 QT: 268 QTc: 375 Greer: P: WV: QRS: 79 T: 261 INTERPRETIVE STATEMENTS: Ventricular-paced rhythm with occasional premature ventricular complexes Abnormal ECG Compared to ECG 09/09/2018 10:36:21 Ventricular premature complex(es) now present Atrial fibrillation no longer present ST (T wave) deviation no longer present Electronically Signed On 07-17-22 18:38:28 CDT by Froilan Garzon
--- NOTE | 2022-07-17 19:56 | P.PN ---
Date of Service: 07/18/22 Subjective: feels better today started amio yesterday no new/worsening symptoms wants to walk around ROS: 10 point ROS as noted above, otherwise negative Physical Exam: Gen: NAD, AOx3 HEENT: normal conjunctiva, sclera anicteric CV: irregular rhythm, trace b/l pedal edema Pulm: non-labored respirations on 3L NC, mild crackles bilaterally, minimal expiratory wheeze Abd: soft, non-tender, non-distended Neuro: normal speech, normal affect, moves all extremities vitals reviewed Problem List acute hypoxic respiratory failure secondary to acute on chronic CHF exacerbation and pneumonia sepsis secondary to pneumonia acute on chronic CHF eexacerbation, systolic & diastolic acute on chronic COPD exacerbation Afib, chronic; s/p watchman CAD s/p CABG, ICD, PM h/o colon cancer mild hyponatremia bibasilar pneumonia noted on CT 07/15 COPD exacerbation pulm consulted - merrem changed to levaquin not on inhalers previously continue PO steroids, bronchodilators; dc'd IV steroids CAD s/p CABG afib CHF exacerbation cardiology consulted continue IV lasix - BID continue metoprolol and xarelto for afib amiodarone drip started 07/17 wean O2 as tolerated hypontremia Na with minimal change check labs to eval etiology nephrology consulted VTE: Xarelto Code: Full Dispo: home, ~2 days Time Spent Managing Pts Care (In Minutes): 35
--- NOTE | 2022-07-17 20:02 | PN ---
Date of Progress Note: 07/17/2022 Subjective: Seen by bedside. Doing clinically about the same. He still had significant shortness o f breath on minimal exertion when he tried to get up and go to the bathroom. Review of Systems: Positive orthopnea and shortness of breath on exertion. No nausea, vomiting, diarrhea. No chest chapo n. No dysuria, polyuria, or urinary urgency. All other systems reviewed are negative. Physical Examination: Vital Signs: Temperature of 98.0, heart rate is 105, breathing at 16, blood pressure is 107/62, satu rating 98% with oxygen. General: This pleasant elderly male, in no apparent distress. Head and Neck: Pupils are equal, reactive to light. Intact eye movements. Positive JVD. Neck: Supple. Thyroid is not enlarged. Lungs: Decreased breathing sounds with crackles in both bases. Heart: Regular. No extra sounds. Abdomen: Soft, nontender. Bowel sounds positive. No organomegaly. No masses or hernia. No rigidi ty or rebound. Extremities: No clubbing, cyanosis. Intact pulses. Skin: No rash. Neurologic: Alert, awake. No acute focal deficits appreciated. Lymph Nodes: No cervical or axillary lymphadenopathy. Investigations: BUN is 27, creatinine 1.3. Hemoglobin is 11.5. Assessment And Recommendation: 1.Acute on chronic congestive heart failure exacerbation with low ejection fraction on the echo. Re commend to adjust the Lasix to twice a day if blood pressure allows, and monitor BUN, creatinine, rashawn ctrolytes, and monitor in and output. 2.Atrial fibrillation. The rate is being fast on metoprolol and digoxin. To be careful with digoxi n as there is a chronic kidney disease. He is going to have a hard time if atrial fibrillation happe ns with rapid ventricular response, then an amiodarone load will be appropriate. Please discontinue the digoxin. 3.Systolic heart failure with acute exacerbation. Increase the Lasix to q.12 hours. Strict low-sod ium diet. If the patient has history of ICD implanted which means that his ejection fraction is low. No ischemia workup is recommended. SR/MODL Voice ID: [id number] Report ID: [id number]
[2022-07-17] MEDS ORDERED: AMIODARONE HCL 150 MG/3 ML INJ IV ONE (20:43)
[2022-07-17] MEDS ORDERED: D5W 100 ML IV ONE ×2 (20:44)
[2022-07-17] MEDS: AMIODARONE IN DEXTROSE,ISO-OSM 360 MG/200 ML BAG IV SCH (21:00)
[2022-07-17] MEDS: TAMSULOSIN 0.4 MG SR CAP PO SCH (21:04)
[2022-07-17] MEDS: METOPROLOL XL 50 MG TAB PO SCH (21:04)
[2022-07-18] MEDS: METHYLPREDNISOLONE 40 MG INJ IV SCH ×2 (00:28→08:48)
[2022-07-18] MEDS ORDERED: AMIODARONE HCL 150 MG/3 ML INJ IV ONE (02:42)
[2022-07-18] MEDS ORDERED: AMIODARONE IN DEXTROSE,ISO-OSM 360 MG/200 ML BAG IV ONE (02:50)
[2022-07-18] MEDS: AMIODARONE IN DEXTROSE,ISO-OSM 360 MG/200 ML BAG IV SCH (02:56)
[2022-07-18 05:03] LABS: Absolute Lymphocytes (CBC) 0.2 K/uL (0.7-4.9); Lymphocytes % 1.7 % (15.3-44.8); MCV 86.6 fL (80-100); MPV 8.3 fL (7.6-11.3); RBC Red Blood Cell Count 4.04 M/uL (4.33-5.43)
[2022-07-18 05:19] LABS: Magnesium 2.2 mg/dL (1.8-2.4); Potassium 4.2 mmol/L (3.5-5.1)
[2022-07-18] MEDS ORDERED: POLYETHYL GLY 3350 17 GM/DOSE PO PRN (07:29)
[2022-07-18] MEDS: ARFORMOTEROL TARTRATE 15 MCG/2 ML VIAL.NEB NEB SCH ×2 (08:00→20:00)
[2022-07-18] MEDS ORDERED: AMIODARONE HCL 900 MG in Dextrose 5%-Water 482 ML IV SCH (08:00)
--- NOTE | 2022-07-18 08:12 | ECHO ---
HEIGHT: 5 ft 11 in WEIGHT: 151 lb 14.4 oz DATE OF STUDY: 07/17/[address]: Randi Jordan 2-DIMENSIONAL: YES M.MODE: YES DOPPLER: YES COLOR FLOW: YES TDS: PORTABLE: YES DEFINITY: BUBBLE STUDY: DIAGNOSIS: CONGESTIVE HEART FAILURE CARDIAC HISTORY: CATHERIZATION: YES SURGERY: YES PROSTHETIC VALVE: PACEMAKER: YES MEASUREMENTS (cm) DIASTOLIC (NORMALS) SYSTOLIC (NORMALS) IVSd 1.0 (0.6-1.2) LA Diam 4.7 (1.9-4.0) LVEF 30-35% LVIDd 4.9 (3.5-5.7) LVIDs 4.1 (2.0-3.5) %FS % LVPWd 1.3 (0.6-1.2) Ao Diam 3.0 (2.0-3.7) 2 DIMENSIONAL ASSESSMENT: RIGHT ATRIUM: ENLARGED LEFT ATRIUM: ENLARGED RIGHT VENTRICLE: DILATED RIGHT VENTRICLE LEFT VENTRICLE: DEPRESSED EJECTION FRACTION TRICUSPID VALVE: MILD TRICUSPID REGURGITATION MITRAL VALVE: MILD MITRAL REGURGITATION PULMONIC VALVE: MILD PULMONIC INSUFFICIENCY AORTIC VALVE: MILD AORTIC INSUFFICIENCY PERICARDIAL EFFUSION: NONE AORTIC ROOT: NORMAL LEFT VENTRICULAR WALL MOTION: MODERATE GLOBAL HYPOKINESIS DOPPLER/COLOR FLOW: SEE BELOW COMMENTS: MODERATE TO SEVERE SYSTOLIC DYSFUNCTION. EJECTION FRACTION 30-35%. BIATRIAL ENLARGEMENT. DILATED RIGHT VENTRICLE WITH MILD DYSFUNCTION. MILD TRICUSPID REGURGITATION, PULMONIC INSUFFICIENCY, AORTIC INSUFFICIENCY, AND MITRAL REGURGITATION. SEVERE PULMONARY HYPERTENSION WITH RIGHT VENTRICULAR SYSTOLIC PRESSURE GREATER THAN 60 mmHg. TECHNOLOGIST: STEFANIE LARIOS
--- NOTE | 2022-07-18 08:15 | RAD REPORT ---
EXAM DESCRIPTION: RAD - Chest Single View - 07/18/2022 8:03 am CLINICAL HISTORY: copd COMPARISON: Portable July 15, CT chest July 15 TECHNIQUE: AP portable chest image was obtained 07/18/2022 8:03 am . FINDINGS: Each apex is clipped from view. Defibrillator is in place. The Bibasilar opacification is present similar to prior imaging. There has been no improvement. Small mayra ateral pleural effusions are present. Stable cardiomegaly noted. Central vasculature remains prominent. No pneumothorax. IMPRESSION: Bibasilar infiltrate and/or atelectasis showing no improvement from prior day imaging. Stable cardiomegaly.
[2022-07-18] MEDS: DIGOXIN 0.25 MG TABLET PO SCH (08:48)
[2022-07-18] MEDS: DOCUSATE NA 100 MG CAP PO SCH ×2 (08:48→21:18)
[2022-07-18] MEDS: FUROSEMIDE 40 MG/4 ML VIAL IV SCH ×2 (08:48→21:16)
[2022-07-18] MEDS: RIVAROXABAN 20 MG TABLET PO SCH (08:49)
[2022-07-18] MEDS: predniSONE 20 MG TAB PO SCH ×2 (08:49→21:18)
[2022-07-18] MEDS: ASPIRIN EC 81 MG TAB PO SCH (08:49)
[2022-07-18 10:01] LABS: Thyroid Stimulating Hormone 1.9 uIU/mL (0.360-3.740); Uric Acid 7.6 mg/dL (3.5-7.2)
[2022-07-18 10:04] LABS: Specific Gravity 1.027 (1.005-1.030); Urine Bilirubin NEGATIVE (Negative); Urine Blood 3+ (Negative); Urine Clarity Clear (Clear); Urine Color Yellow (Yellow); Urine Glucose NEGATIVE (Negative); Urine Mucus Slight /HPF (None Seen); Urine Protein TRACE (Negative); Urine RBC 21-50 /HPF (None Seen); Urine Urobilinogen Normal (Normal)
[2022-07-18 11:20] LABS: UR SODIUM < 15 mmol/L (27-287)
[2022-07-18] MEDS: Levofloxacin500mg IV 500 MG/100 ML BAG IV SCH ×2 (12:00→12:29)
--- NOTE | 2022-07-18 15:20 | CON ---
Date of Consultation: 07/18/2022 Reason For Consultation: Hyponatremia, fluid management. History Of Present Illness: This is a 76-year-old gentleman with significant past medical history of CAD, status post CABG, status post PCI, status post Watchman and ICD placement, complicated with congestive heart failure, ejection fraction as by echocardiogram in this admission of 35%, hypertension, hyperlipidemia, colon cancer, status post resection, COPD, pulmonary Hypertension, the patient came to the hospital complaining from shortness of breath with cough and congestion, found to be hypoxemic with saturation down to 83. For that reason, the patient was admitted. The patient was also found to have pneumonia and CHF exacerbation. Primary workup showed elevation in BUN and creatinine with hyponatremia. For that reason, we have been consulted. Sodium was down to 124-123. Reviewing the record for the patient, the patient has been slightly decreased in his intake. According to the daughter, the patient supposed to be switched to discontinue Xarelto and continue on PPI. Apparently, the patient has been at home on lisinopril with hydrochlorothiazide and Lasix. The patient denied taking any nonsteroidal. Reviewing the record for the patient, the patient did not have any previous history of hyponatremia. Past Medical History: Includes; 1. CAD complicated with congestive heart failure, ejection fraction of 35%, status post PCI, status post CABG. 2. Hyperlipidemia. 3. COPD. 4. Pulmonary hypertension. 5. Colon cancer, status post resection. Past Surgical History: Includes resection, Watchman, ICD placement, PTCA. Family History: Positive for CAD, hypertension, lung cancer. Social History: Ex-smoker. Occasional alcohol. Denied drug abuse. Review of Systems: Which is obtained from the daughter; Head and Neck: No red eye. No ear pain. GI: Decreased intake. : No polyuria. No dysuria. No hematuria. Hydroelectric Plant Technician: Not applicable. Respiratory: Has shortness of breath. Has cough. Cardiovascular: Has leg swelling. Has orthopnea. Endocrine: No polydipsia. Skin: No rash. Neuro: The patient has dementia. Musculoskeletal: Generalized fatigue. Physical Examination: Vital Signs: When I saw the patient; blood pressure 117/64, pulse of 72, afebrile. Chest: Crackles bilateral base, more prominent on the left base. Heart: S1, S2. Systolic murmur. Abdomen: Soft, nontender. Extremity: No edema. Neuro: Alert. No focality. Pleasantly confused. Laboratory Data: Sodium 123, potassium 4.2, bicarb 26, BUN 33, creatinine 1.1, GFR of 63, uric acid 7.6, calcium 8.7, magnesium 2.2, albumin 4.2, TSH 1.9. WBC 9.6, H and H 12/35. Urinalysis; specific gravity of 1.027, RBC of 50, sodium less than 15, potassium 41, urine osmolality 720. Current Medications: The patient on include amiodarone, digoxin, metoprolol, Lasix 40 daily, prednisone 20 mg b.i.d., Solu-Medrol 40 mg t.i.d. Assessment And Plan: 1. Hyponatremia mostly secondary to dilutional, secondary to congestive heart failure, supported with the finding with current ejection fraction and the low sodium in the urine. I am going to go ahead and increase Lasix to 40 mg b.i.d. Given the presence of congestive heart failure with ejection fraction 35% to overcome the secondary hyperaldo, I am going to go ahead and start the patient on spironolactone 25 mg daily and we will monitor. 2. Hypertension, controlled, optimal with the presence of hyponatremia. Discontinue hydrochlorothiazide, change Lasix to b.i.d., add spironolactone as above. 3. Hypokalemia. We will add spironolactone. We will follow up, discontinue potassium supplement. 4. Chronic obstructive pulmonary disease exacerbation as by Pulmonary. We will discuss regarding the dose of the prednisone. 5. Coronary artery disease with congestive heart failure, cardiac arrhythmia. Follow up with Cardiology. The patient was started on amiodarone. Increase Lasix, add spironolactone. We will follow up. Time spent examining the patient [id number], reviewing data, lab and radiology, discussing the case with the patient, discussing the case with hat steamer including nursing and ICU, hemodialysis nurse, and hospitalist more than 65 minutes. GREGORY Voice ID: [id number] Report ID: [id number] SHIRA
[2022-07-18] MEDS: levoFLOXacin 500 MG TAB PO SCH (16:23)
[2022-07-18] MEDS: METOPROLOL XL 50 MG TAB PO SCH (21:17)
[2022-07-18] MEDS: TAMSULOSIN 0.4 MG SR CAP PO SCH (21:17)
[2022-07-19 05:00] LABS: Hematocrit 37.2 % (39.6-49.0); MCV 85.9 fL (80-100); RBC Red Blood Cell Count 4.33 M/uL (4.33-5.43)
[2022-07-19 05:05] LABS: Specific Gravity 1.009 (1.005-1.030); Urine Bilirubin NEGATIVE (Negative); Urine Blood 2+ (Negative); Urine Clarity Clear (Clear); Urine Color Light-Yellow (Yellow); Urine Glucose NEGATIVE (Negative); Urine Protein NEGATIVE (Negative); Urine Urobilinogen Normal (Normal); Urine pH 5.5 (5.0-7.0)
[2022-07-19 05:16] LABS: Albumin 2.9 g/dL (3.4-5.0); Phosphorus 3.2 mg/dL (2.5-4.9); Potassium 3.6 mmol/L (3.5-5.1)
--- NOTE | 2022-07-19 06:04 | P.PN ---
Date of Service: 07/19/22 Subjective: no acute events overnight sodium slightly improved on 2L NC ROS: 10 point ROS as noted above, otherwise negative Physical Exam: Gen: NAD, AOx3 HEENT: normal conjunctiva, sclera anicteric CV: irregular rhythm, trace b/l pedal edema Pulm: non-labored respirations on 2L NC, mild crackles bilaterally Abd: soft, non-tender, non-distended Neuro: normal speech, normal affect, moves all extremities vitals reviewed Problem List acute hypoxic respiratory failure secondary to acute on chronic CHF exacerbation and pneumonia sepsis secondary to pneumonia acute on chronic CHF eexacerbation, systolic & diastolic acute on chronic COPD exacerbation Afib, chronic; s/p watchman CAD s/p CABG, ICD, PM h/o colon cancer mild hyponatremia bibasilar pneumonia noted on CT 07/15 COPD exacerbation pulm consulted - merrem changed to levaquin not on inhalers previously continue PO steroids, bronchodilators CAD s/p CABG afib CHF exacerbation cardiology consulted continue IV lasix - increased for further diuresis continue metoprolol and xarelto for afib, dc'd digoxin per cardiology recommendation amiodarone drip started 07/17, transitioned to PO 07/19 wean O2 as tolerated gillette placed in ED for accurate i/o's, dc'd 07/19, voiding hypontremia Na with minimal change, suspect secondary to hypervolemia nephrology consulted, lasix increased VTE: Xarelto Code: Full Dispo: home, ~1-2 days ok to transfer out of icu Time Spent Managing Pts Care (In Minutes): 35
[2022-07-19] MEDS: AMIODARONE HCL 200 MG TAB PO SCH ×2 (06:58→20:58)
[2022-07-19] MEDS ORDERED: POTASSIUM 25 MEQ EFFERV TAB PO ONE ×2 (07:30→10:35)
[2022-07-19] MEDS: RIVAROXABAN 20 MG TABLET PO SCH (08:41)
[2022-07-19] MEDS: DOCUSATE NA 100 MG CAP PO SCH ×2 (08:41→20:58)
[2022-07-19] MEDS: FUROSEMIDE 40 MG/4 ML VIAL IV SCH ×2 (08:41→20:57)
[2022-07-19] MEDS: predniSONE 20 MG TAB PO SCH ×2 (08:41→20:58)
[2022-07-19] MEDS: ASPIRIN EC 81 MG TAB PO SCH (08:42)
[2022-07-19] MEDS: levoFLOXacin 500 MG TAB PO SCH (08:42)
[2022-07-19] MEDS: SPIRONOLACTONE 25 MG TABLET PO SCH (08:42)
[2022-07-19] MEDS: ARFORMOTEROL TARTRATE 15 MCG/2 ML VIAL.NEB NEB SCH ×2 (09:41→20:05)
[2022-07-19] MEDS ORDERED: FUROSEMIDE 40 MG/4 ML VIAL IV ONE (11:30)
--- NOTE | 2022-07-19 14:28 | PN ---
Date of Progress Note: 07/18/2022 Subjective: Seen by bedside. Feeling slightly better and was able to get up and walk with less shor tness of breath and making a good amount of urine. Review of Systems: Positive for shortness of breath on exertion. No nausea, vomiting, diarrhea. No abdominal pain. No dysuria, polyuria, or urinary urgency. No chest pain. All other systems reviewed and they were neg ative. Physical Examination: Vital Signs: Temperature is 97.6, pulse 82, breathing at 18, blood pressure is 109/53, saturating 98 % on room air. General: Pleasant, elderly male, in no apparent distress. Head and Neck: Pupils are equal, reactive to light. Intact eye movements. Mild JVD elevation. No cervical lymphadenopathy. Neck is supple. Thyroid is not enlarged. Lungs: Decreased breathing sounds with crackles on the bases. No accessory muscle use or muscle ret raction. Heart: Irregularly irregular. No extra sounds. Abdomen: Soft, nontender. Bowel sounds positive. No organomegaly. No masses or hernia. No rigidi ty or rebound. Extremities: No clubbing or cyanosis. Intact pulses. Trace edema. Skin: No rash. Neurologic: Alert, awake, oriented x3. No acute focal deficits appreciated. Investigations: Sodium 123 and his BUN 33, creatinine is 1.19. Assessment And Recommendations: 1.Acute on chronic systolic heart failure exacerbation. Doing much better. Continue IV Lasix. Mon itor BUN, creatinine, and electrolytes. 2.Atrial fibrillation with rapid ventricular response. Continue 24-hours of amiodarone load and the n switch to 200 mg twice a day by mouth and also continue Xarelto and metoprolol. 3.Hypertension. Blood pressure is controlled. Continue current management. SR/MODL Voice ID: [id number] Report ID: [id number]
--- NOTE | 2022-07-19 14:35 | PN ---
Date of Progress Note: 07/19/2022 Subjective: The patient was admitted with CHF exacerbation. The patient found to have hyponatremia. We started the patient on aggressive diuresis. The patient started responding very well. Yesterday, we increased his Lasix and added spironolactone. Kidney function stable. Still has hypokalemia. Physical Examination: Vital Signs: When I saw the patient; blood pressure 120/66, pulse of 72. The patient had good urine output of 1 L. Was positive of 300, but today he picked up. He had urine output of 1400, negative of 900. Chest: Decreased entry bilateral base. Heart: S1, S2. Systolic murmur. Abdomen: Soft, nontender. Extremity: Plus edema. Neurologic: Alert. Pleasantly confused. No focality. The patient known to have dementia. Laboratory Data: WBC 9.8, H and H 12.8/37.2. Sodium 125 trending up, potassium 3.6, bicarb 28, BUN 39, creatinine 1.3, GFR of 56, calcium 8.5, phosphorus 3.2, albumin 2.9, corrected calcium is 9.3. Current Medications: The patient on include; 1. Aspirin. 2. Levofloxacin. 3. Flomax. 4. Amiodarone. 5. Spironolactone 25 daily. 6. Lasix 40 b.i.d. 7. Breathing treatment. 8. Zofran. 9. KCl. Assessment And Plan: 1. Acute kidney injury on chronic kidney disease secondary to cardiorenal syndrome, stable, still over volume. I am going to go ahead and increase Lasix to 80 mg b.i.d. and we will continue to monitor the patient. 2. Hyponatremia, dilutional, secondary to cardiorenal syndrome. The patient started having good urine output and his urine sodium started to increase in the urine. The patient started overcoming his hyper candido, also his urine potassium started to decrease. I am going to go ahead and continue spironolactone. We will increase Lasix to 80 mg b.i.d. We will monitor the patient. 3. Hypokalemia secondary to secondary hyper ald secondary to congestive heart failure. Continue spironolactone. We will increase supplement. 4. Congestive heart failure with exacerbation as above. We will follow up with Cardiology. The patient switched to amiodarone for oral for atrial fibrillation. 5. Obstructive uropathy. Continue Flomax. 6. Hypertension, controlled, optimal. Continue to utilize blood pressure for more diuresis. Time spent examining the patient [id number], reviewing data, lab and radiology, discussing the case with the patient, discussing the case with crew team member including nursing and ICU, hemodialysis nurse, and hospitalist more than 35 minutes. GREGORY Voice ID: [id number] Report ID: [id number] MTDD
--- NOTE | 2022-07-19 14:50 | PN ---
Date of Progress Note: 07/19/2022 Subjective: Seen by bedside. Continues to do well. Review of Systems: No chest pain or shortness of breath, orthopnea, cough. No nausea, vomiting, diarrhea. No abdominal pain. No dysuria, polyuria, or urinary urgency. All other systems reviewed and they were negative. Physical Examination: Vital signs: Reviewed. Head and Neck: Pupils are equal, reactive to light. Intact eye movements. No JVD. No cervical lym phadenopathy. Neck is supple. Thyroid is not enlarged. Lungs: Clear to auscultation bilaterally. No rhonchi, wheezing, or crackles. No accessory muscle u se. Heart: Regular rate and rhythm. No extra sounds. Abdomen: Soft, nontender. Bowel sounds positive. No organomegaly. No masses or hernia. No rigidi ty or rebound. Extremities: No clubbing or cyanosis. Intact pulses. Skin: No rash. Neurologic: Alert, awake, oriented x3. No acute focal deficits appreciated. Lymph Nodes: No cervical or axillary lymphadenopathy. Investigations: His BUN 39, creatinine 1.31. Assessment And Recommendations: 1.Acute on chronic systolic heart failure exacerbation. Doing gradually better. Seen by Nephrology and recommended diuresis with high-dose of Lasix. Carefully monitor BUN, creatinine, electrolytes, and I would recommend to recheck basic metabolic panel for later on today and if further worsening of the creatinine happens, then I need to cut down on IV Lasix. 2.Atrial fibrillation with rapid ventricular response. Controlled with amiodarone, switch him to am iodarone 200 mg twice a day by mouth and continue metoprolol and Xarelto. 3.Hypertension. Blood pressure is controlled. SR/MODL Voice ID: [id number] Report ID: [id number]
[2022-07-19 19:13] LABS: Potassium 3.8 mmol/L (3.5-5.1)
[2022-07-19] MEDS: TAMSULOSIN 0.4 MG SR CAP PO SCH (20:58)
[2022-07-19] MEDS: METOPROLOL XL 50 MG TAB PO SCH (20:58)
[2022-07-20 05:06] LABS: Phosphorus 3.1 mg/dL (2.5-4.9); Potassium 3.6 mmol/L (3.5-5.1)
[2022-07-20] MEDS: DOCUSATE NA 100 MG CAP PO SCH (07:58)
[2022-07-20] MEDS: SPIRONOLACTONE 25 MG TABLET PO SCH (07:58)
[2022-07-20] MEDS: AMIODARONE HCL 200 MG TAB PO SCH (07:58)
[2022-07-20] MEDS: predniSONE 20 MG TAB PO SCH (07:58)
[2022-07-20] MEDS: levoFLOXacin 500 MG TAB PO SCH (07:58)
[2022-07-20] MEDS: ASPIRIN EC 81 MG TAB PO SCH (07:59)
[2022-07-20] MEDS: RIVAROXABAN 20 MG TABLET PO SCH (07:59)
[2022-07-20] MEDS: ARFORMOTEROL TARTRATE 15 MCG/2 ML VIAL.NEB NEB SCH (08:32)
[2022-07-20] MEDS: FUROSEMIDE 40 MG/4 ML VIAL IV SCH (09:00)
[2022-07-20] MEDS ORDERED: POTASSIUM 25 MEQ EFFERV TAB PO ONE (09:00)
[2022-07-20 09:52] VITALS: O2SAT 92
--- NOTE | 2022-07-20 13:32 | P.DS ---
Admission Date: 07/15/22 Discharge Date: 07/20/22 Disposition: ROUTINE DISCHARGE Discharge Condition: GOOD Reason for Admission: Acute Respiratory Failure Consultations: Cardiology - Dr. Garzon Nephrology - Dr. Chacko Pulmonology - Dr. Price Brief History of Present Illness: 76 year old male with history of afib s/p watchman on chronic anticoagulation, CAD s/p CABG and pacemaker, COPD, dementia, hypertension, and CHF who presented to the ED with complaints of worsening shortness of breath, cough, and congestion. He was noted to be saturating 83% on RA upon arrival with RR of 30 and HR of 146. He improved with supplemental O2. ABG with pH of 7.45, pCO2 33. Labs significant for WBC 14.9, Na 124, Cl 89, Cr 1.31, serum osmolality 260, lactic acid 2.1, BNP 17,000. Chest xray showed "Small to moderate left pleural effusion, Mild bilateral pulmonary opacities, and Cardiomegaly." He was later placed on bipap. Nava placed. CT chest suggested bibasilar pneumonia, bihilar lymphadenopathy, small bilateral pleural effusions, hepatomegaly, hepatic steatosis, and splenomegaly. Follow up lactate is 1.9. He is admitted for further management. Hospital Course: Problem List acute hypoxic respiratory failure secondary to acute on chronic CHF exacerbation and pneumonia sepsis secondary to pneumonia acute on chronic CHF eexacerbation, systolic & diastolic acute on chronic COPD exacerbation Afib, chronic; s/p watchman CAD s/p CABG, ICD, PM h/o colon cancer mild hyponatremia Acute CHF exacerbation, complicated by pneumonia Patient had improvement of his breathing / symptoms with empiric antibiotics and diuresis. Patient was seen by Cardiology, Nephrology, and Pulmonology. He received several days of IV lasix with good response. Oxygen supplementation was able to be weaned off Patient developed afib with RVR, his digoxin was discontinued and received IV amiodoarone and transitioned to oral amio. He was noted to have mild-moderate hyponatremia, which slowly improved with diuresis. Sodium up to 129 on discharge. Pulmonology recommended steroids and levaquin for pneumonia and copd exacerbation. Patient discharged with albuterol inhaler as well. Medications: New: Amiodarone 200mg daily Spironolactone 25 mg daily levaquin for 5 more days Albuterol inhaler Prednisone Changes in medications Lasix, increase from 20 mg daily to 40 mg twice daily stopped digoxin stopped lisinopril-HCTZ Follow up: PCP within 1 week Cardiology in 1-2 weeks Nephrology - 2 weeks Pulmonology- ~2-3 weeks for follow up on COPD Vital Signs/Physical Exam: Temp Pulse Resp BP Pulse Ox 96.9 F 76 18 106/58 L 96 07/20/22 04:00 07/20/22 09:00 07/19/22 23:00 07/20/22 09:00 07/20/22 06:00 Physical Exam: Gen: NAD, AOx3 HEENT: normal conjunctiva, sclera anicteric CV: paced rhythm, no edema Pulm: non-labored respirations on RA Abd: soft, non-tender, non-distended Neuro: normal speech, normal affect, moves all extremities Laboratory Data at Discharge: WBC 9.80 K/uL (4.3-10.9) 07/19/22 04:31 Hgb 12.8 g/dL (13.6-17.9) L 07/19/22 04:31 Hct 37.2 % (39.6-49.0) L 07/19/22 04:31 Plt Count 193 K/uL (152-406) D 07/19/22 04:31 PT 42.3 SECONDS (9.5-12.5) H 07/15/22 20:50 INR 3.85 07/15/22 20:50 Sodium 129 mmol/L (136-145) L 07/20/22 04:24 Potassium 3.6 mmol/L (3.5-5.1) 07/20/22 04:24 BUN 43 mg/dL (7-18) H 07/20/22 04:24 Creatinine 1.28 mg/dL (0.55-1.3) 07/20/22 04:24 Glucose 170 mg/dL (74-106) H 07/20/22 04:24 Uric Acid 7.6 mg/dL (3.5-7.2) H 07/18/22 04:26 Phosphorus 3.1 mg/dL (2.5-4.9) 07/20/22 04:24 Magnesium 2.2 mg/dL (1.8-2.4) 07/18/22 04:26 Total Bilirubin 2.1 mg/dL (0.2-1.0) H 07/15/22 20:50 AST 28 U/L (15-37) 07/15/22 20:50 ALT 21 U/L (12-78) 07/15/22 20:50 Alkaline Phosphatase 137 U/L (45-117) H 07/15/22 20:50 Triglycerides 47 mg/dL (<150) 07/16/22 03:29 Cholesterol 67 mg/dL (<200) 07/16/22 03:29 HDL Cholesterol 49 mg/dL (40-60) 07/16/22 03:29 Cholesterol/HDL Ratio 1.37 07/16/22 03:29 Home Medications: Potassium Chloride 1 tab PO DAILY 09/04/18 Tamsulosin [Flomax*] 1 cap PO BEDTIME 09/04/18 Garlic 1 cap PO DAILY 12/21/21 Metoprolol Succinate [Toprol Xl*] 2 tab PO BEDTIME 12/21/21 Multivit-Min/FA/Lycopen/Lutein [Centrum Silver Tablet] 1 each PO DAILY 12/21/21 Omeprazole [Prilosec] 1 tab PO BID 12/21/21 Rivaroxaban [Xarelto] 1 tab PO DAILY 12/21/21 Rosuvastatin Calcium [Crestor] 1 tab PO DAILY 12/21/21 Ferrous Gluconate 1 tab PO BID 07/16/22 Albuterol Inhaler [Ventolin Inhaler*] 2 puff IH Q6H PRN #1 inh 07/20/22 Amiodarone HCl [Cordarone*] 200 mg PO DAILY 30 Days #30 tab 07/20/22 Furosemide [Lasix] 40 mg PO BID 30 Days #60 tab 07/20/22 Spironolactone [Aldactone] 25 mg PO DAILY 30 Days #30 tab 07/20/22 levoFLOXacin [Levaquin*] 500 mg PO DAILY 5 Days #5 tab 07/20/22 predniSONE [Deltasone*] 10 mg PO DAILY 5 Days #5 tab 07/20/22 New Medications: Spironolactone [Aldactone] 25 mg PO DAILY 30 Days #30 tab Amiodarone HCl [Cordarone*] 200 mg PO DAILY 30 Days #30 tab predniSONE [Deltasone*] 10 mg PO DAILY 5 Days #5 tab Furosemide [Lasix] 40 mg PO BID 30 Days #60 tab levoFLOXacin [Levaquin*] 500 mg PO DAILY 5 Days #5 tab Albuterol Inhaler [Ventolin Inhaler*] 2 puff IH Q6H PRN #1 inh PRN Reason: Shortness Of Breath Physician Discharge Instructions: Acute CHF exacerbation, complicated by pneumonia Patient had improvement of his breathing / symptoms with empiric antibiotics and diuresis. Patient was seen by Cardiology, Nephrology, and Pulmonology. He received several days of IV lasix with good response. Oxygen supplementation was able to be weaned off Patient developed afib with RVR, his digoxin was discontinued and received IV amiodoarone and transitioned to oral amio. He was noted to have mild-moderate hyponatremia, which slowly improved with diuresis. Sodium up to 129 on discharge. Pulmonology recommended steroids and levaquin for pneumonia and copd exacerbation. Patient discharged with albuterol inhaler as well. Medications: New: Amiodarone 200mg daily Spironolactone 25 mg daily levaquin for 5 more days Albuterol inhaler Prednisone Changes in medications Lasix, increase from 20 mg daily to 40 mg twice daily stopped digoxin stopped lisinopril-HCTZ Follow up: PCP within 1 week Cardiology in 1-2 weeks Nephrology - 2 weeks Pulmonology- ~2-3 weeks for follow up on COPD Follow up with a Lot Boss of your choice: OREN HEBERT, [address], [place], [place] [address] IRVING HEBERT, ROLO [address] [place] [address], [place], [place] [id number] Follow up with a Glass Sander Belt of your choice: FABIO HEBERT, MANAF [address], [facility] [place], [place] [address] Follow up with a Dump Operator of your choice: ONOFRE HEBERT, [address], [place], [place] [id number] Followup: NONE,NONE [Primary Care Provider] - Time spent managing pt's care (in minutes): 45
[2022-07-20 13:47] VITALS: TEMP 97.9
--- NOTE | 2022-07-20 14:16 | PN ---
Date of Progress Note: 07/20/2022 Subjective: The patient was admitted with hyponatremia, CHF exacerbation. The patient had acute kidney injury secondary to cardiorenal and hyponatremia. The patient was started on aggressive diuresis, had good urine output. Sodium started to normalize, the kidney function stabilized. The patient also was started on spironolactone. Physical Examination: Vital Signs: When I saw the patient; blood pressure 106/58, pulse of 76. Chest: Clear to auscultation. Heart: S1, S2. Regular. Systolic murmur. Abdomen: Soft, nontender. Extremity: Trace edema. Neurologic: Alert. Pleasantly confused. No focality. Laboratory Data: WBC 9.8, H and H 12.8/37.2. Sodium 129, potassium 3.6, bicarb 31, BUN 43, creatinine 1.2, GFR 58, calcium 8.5, phosphorus 3.1, albumin of 3. Current Medications: The patient on include Levaquin 500 daily, aspirin, Flomax 0.4, Xarelto, spironolactone 25 daily, Lasix 80 b.i.d., breathing treatment, docusate, KCl. Assessment And Plan: 1. Acute kidney injury secondary to cardiorenal. Continued to recover. Currently looked to me started to being close to normal volume. I am going to decrease Lasix to 40 mg b.i.d. as oral and we will continue to follow up the patient. The patient cleared from the Renal standpoint for discharge planning to follow up in the office in 2-3 weeks with chemistry. 2. Hypertension, currently blood pressure on the lower side. Decrease Lasix. Continue metoprolol. Continue spironolactone. 3. Hyponatremia secondary to dilutional, secondary to cardiorenal, improving significantly on current regimen of Lasix. We will decrease Lasix. 4. Hypokalemia secondary to hyperaldosteronism secondary to congestive heart failure. Continue spironolactone. 5. Congestive heart failure as above. The patient established better volume control currently. 6. Obstructive uropathy. Continue Flomax. Time spent examining the patient [id number], reviewing data, lab and radiology, discussing the case with the patient, discussing the case with project manager/team coach including nursing and hospitalist more than 35 minutes GREGORY Voice ID: [id number] Report ID: [id number] [facility]
[2022-07-20 16:29] VITALS: BP 104/51
[2022-07-20] MEDS ORDERED: FUROSEMIDE 40 MG/4 ML VIAL IV SCH (21:00)
--- NOTE | 2022-07-20 21:11 | PN ---
Date of Progress Note: 07/20/2022 Subjective: Seen at bedside. Doing very well. No significant shortness of breath. Review of Systems: No shortness of breath, orthopnea, cough. No nausea, vomiting, diarrhea. All other systems reviewed and they are negative. Physical Examination: Vital Signs: Reviewed. Head and Neck: Pupils are equal, reactive to light. Intact eye movements. No JVD. No cervical lym phadenopathy. Neck: Supple. Thyroid is not enlarged. Lungs: Clear to auscultation bilaterally. No rhonchi, rales, or crackles. No accessory muscle use. Heart: Irregularly irregular. No extra sounds. Abdomen: Soft, nontender. Bowel sounds positive. No organomegaly. No masses or hernia. No rigidity or rebound. Extremities: No edema, clubbing, or cyanosis. Intact pulses. Skin: No rash. Neurologic: Alert, awake, oriented x3. No acute focal deficits appreciated. Investigations: Sodium is 129, BUN is 43, creatinine is 1.28. Assessment And Recommendations: 1.Acute on chronic systolic heart failure exacerbation. Diuresing very well, improving on Lasix. C ontinue current management. Monitor BUN, creatinine, electrolytes, and move the patient to floor and ambulate. If the patient is able to tolerate activities, he can be released to follow up as an outp atient. 2.Atrial fibrillation with rapid ventricular response. This is controlled with amiodarone. Continu e that as well as Xarelto 20 mg daily. 3.Acute on chronic renal failure, cardiorenal, improved with diuresis. 4.Hyponatremia due to congestive heart failure, which gives him a poor prognosis and it is improving with diuretics in the current management. Strict low-salt diet is recommended. SR/MODL Voice ID: [id number] Report ID: [id number]
== END 2022-07-20 15:55 | disposition home or self-care (01) | DRG 871 ==
LOC: ER 20:04 → ERHOLD 22:14 → 4TH 07-16 00:37 → 3RD-ICU 07-17 20:16
PROVIDERS: ADMIT Internal Medicine; ATTEND Hospitalist
PROC: 5A09457 Assistance with Respiratory Ventilation, 24-96 Consecutive Hours, Continuous Positive Airway Pressure (ICD-10-PCS; principal; 2022-07-15)
DX: A41.9 Sepsis, unspecified organism (principal); I50.43 Acute on chronic combined systolic (congestive) and diastolic (congestive) heart failure; J18.9 Pneumonia, unspecified organism; J96.01 Acute respiratory failure with hypoxia; I48.20 Chronic atrial fibrillation, unspecified; J44.1 Chronic obstructive pulmonary disease with (acute) exacerbation; J44.0 Chronic obstructive pulmonary disease with (acute) lower respiratory infection; E87.1 Hypo-osmolality and hyponatremia; N17.9 Acute kidney failure, unspecified; I13.0 Hypertensive heart and chronic kidney disease with heart failure and stage 1 through stage 4 chronic kidney disease, or unspecified chronic kidney disease; N18.9 Chronic kidney disease, unspecified; E78.5 Hyperlipidemia, unspecified; E26.9 Hyperaldosteronism, unspecified; E87.6 Hypokalemia; N13.9 Obstructive and reflux uropathy, unspecified; I25.10 Atherosclerotic heart disease of native coronary artery without angina pectoris; K76.0 Fatty (change of) liver, not elsewhere classified; I49.9 Cardiac arrhythmia, unspecified; K74.60 Unspecified cirrhosis of liver; R16.0 Hepatomegaly, not elsewhere classified; R65.20 Severe sepsis without septic shock; Z95.0 Presence of cardiac pacemaker; Z95.1 Presence of aortocoronary bypass graft; Z88.0 Allergy status to penicillin; Z79.52 Long term (current) use of systemic steroids; Z90.49 Acquired absence of other specified parts of digestive tract; Z79.01 Long term (current) use of anticoagulants; Z85.038 Personal history of other malignant neoplasm of large intestine; Z86.718 Personal history of other venous thrombosis and embolism; Z79.899 Other long term (current) drug therapy; Z87.891 Personal history of nicotine dependence; Z20.822 Contact with and (suspected) exposure to COVID-19
CPT/HCPCS: 36415; 71045; 71270; 80048; 80061; 80069; 80076; 80162; 81001; 82805; 83605; 83735; 83880; 83930; 83935; 84100; 84132; 84300; 84443; 84484; 84550; 85025; 85027; 85610; 87040; 87804; 93005; 93306; 94010; 94640; 94660; 94760; 96374; 96375; 97116; 97161; 97530; 99285; J0282; J1940; J2185; J2920; J2930; J3475; J7030; J7060; J7512; J7605; J7614; Q9967; U0003